=== PATIENT | male | born 1955 | race Caucasian/White ===

== ENCOUNTER → 2019-08-14 10:10 | Outpatient (BNVA) | payer MEDICARE, SELFPAY | PROVIDERS: Family Provider Family Medicine; PCP Family Medicine; Visit Provider Internal Medicine Cardiovascular Disease | DX: R06.02 Shortness of breath (principal) | CPT/HCPCS: 80048; 85025 ==

== ENCOUNTER 2019-09-27 09:51 | Outpatient (CLI) | payer MEDICARE, SELFPAY ==
--- NOTE | 2019-09-27 09:55 | CT_ITS ---
WS: [id number] LDCT LUNG CANCER SCREENING TECHNIQUE: Noncontrast CT of the chest with coronal and sagittal reformatted images. CLINICAL INFORMATION: HX OF TOBACCO USE COMPARISON: None. DLP: 56.61 mGy.cm DIvol: 1.[address] scans at [facility] use at least one of these dose optimization techniques: automat ed exposure control; mA and/or kV adjustment per patient size (includes targeted exams where dose is matched to clinical indication); or iterative reconstruction. FINDINGS: Moderate chronic emphysematous changes. Paraseptal emphysematous change. Noncalcified pulmonary nodul e in the left upper lobe measuring 4.3 mm. Additional noncalcified subpleural nodule in the right upp er lobe measuring 3.5 mm Subsegmental atelectasis in the lung bases. Fibrosis right middle lobe. Subsegmental atelectasis/fibr osis along the right minor fissure. Normal caliber thoracic aorta. Vascular calcification including coronary. No mediastinal or hilar lym phadenopathy. Adrenal glands are normal. Cholecystectomy clips. No axillary lymphadenopathy. Dorsal epidural cathet er. CT/CT lung screening G0297 IMPRESSION: LUNG-RADS: 3-Probably Benign FOLLOW UP: 6 Month LDCT
== END 2019-09-27 09:52 | disposition home or self-care (01) ==
PROVIDERS: Visit Provider Internal Medicine Critical Care Medicine
DX: F17.210 Nicotine dependence, cigarettes, uncomplicated (principal); J98.11 Atelectasis; J84.10 Pulmonary fibrosis, unspecified
CPT/HCPCS: G0297

== ENCOUNTER 2019-10-31 12:31 | Outpatient (CLI) | payer MEDICARE, SELFPAY ==
--- NOTE | 2019-10-31 13:13 | PFTS_ITS ---
Date of Study:10/31/19 Date of Dictation: MECHANICS: Forced vital capacity (FVC) is normal. Forced expiratory volume in one second (FEV1) is normal. FEV1/FVC is normal. FLOW VOLUME LOOP: There is no initial peak flow on the flow volume loop LUNG VOLUMES: Total lung capacity (TLC) is normal. Residual volume (RV) is normal. DIFFUSING CAPACITY FOR CARBON MONOXIDE: Moderately reduced. INTERPRETATION: The pulmonary function tests are normal. There is no hyperinflation or air trapping. Gas exchange (DLCO) is moderately reduced. MTDD
== END 2019-10-31 12:32 | disposition home or self-care (01) ==
LOC: RT 12:34
PROVIDERS: Visit Provider Internal Medicine Critical Care Medicine
DX: J44.9 Chronic obstructive pulmonary disease, unspecified (principal)
CPT/HCPCS: 94010; 94726; 94729

== ENCOUNTER → 2019-11-04 14:33 | Outpatient (BNVA) | payer MEDICARE, SELFPAY | PROVIDERS: PCP Family Medicine; Visit Provider Internal Medicine Cardiovascular Disease | DX: I50.9 Heart failure, unspecified (principal); I25.10 Atherosclerotic heart disease of native coronary artery without angina pectoris | CPT/HCPCS: 80048; 83880; 85025 ==

== ENCOUNTER 2019-11-26 06:38 | Outpatient (CLI) | payer MEDICARE, SELFPAY ==
[2019-11-26 07:01] VITALS: BMI 34.8
--- NOTE | 2019-11-26 07:03 | ECG_ITS ---
[facility] Test Date: 2019-11-26 Pat Name: Rikki Barron Department: Room: Gender: Male Patient Flow Coordinator: : 1955 Requested By: Fadumo Dupree Order Number: [id number] Lety MD: Fadumo Dupree M.D. Interpretive Statements NAME OF STUDY: LEXISCAN SESTAMIBI STRESS TEST INDICATION: Shortness of Breath NOTE: Please note that this is the electrocardiogram portion of the Lexiscan/Sestamibi stress test. The perfusion scan will be documented separately. DATA: Baseline heart rate was 98 beats per minute. Baseline blood pressure was 142/74 millimeters of mercury. Target heart rate was 158. Maximum heart rate achieved was 116. which was 73 % of the predicted target heart rate. Maximum blood pressure was 142/82 millimeters of mercury. The reason for ending the test was completion of the protocol. The patient did not experience any symptoms. ELECTROCARDIOGRAM: BASELINE: Sinus rhythm. Normal axis. Nonspecific inferolateral ST-T changes at the baseline. No arrhythmia noted. EXERCISE: After Lexiscan injection, no ST-T changes suggestive of ischemic noted. Multiple PVCs noted. CONCLUSION: Please note due to baseline abnormality of the EKG specificity and sensitivity of the EKG portion of LexiScan MIBI stress test will be low 1. EKG not suggestive of ischemia 2. Lexiscan injection unremarkable. 3. Perfusion scan will be documented separately. Electronically Signed On 11-26-2019 19:32:01 CDT by Fadumo Dupree M.D. [id number]
--- NOTE | 2019-11-26 07:08 | NMCV_ITS ---
NM kari perf SPECT r/s* [id number] Rikki Barron Age: 63 Gender: M : 1955 Exam Date: 11/26/2019 08:13 Ordering Phys: Fadumo Dupree MD ([email or web address]) Technologist: BLAYNE Razo Exam Location: [facility] Indications: SOB STRESS TEST Please see separate stress test report in [facility] for full findings IMAGE PROTOCOL Rest/Stress 1 Lexiscan Day Radiopharmaceutical Dose (mCi) Administration Site Administered by Rest: Tc-99m 10.8 IV BLAYNE Razo Sestamibi Stress:Tc-99m 32.9 IV BLAYNE Bray Sestamibi Rest: 26-Nov-2019 60 Discovery 630 Stress: 26-Nov-2019 45 Discovery 630 0.4mg Lexiscan. Supine position only as patient was unable to lay prone. SPECT RESULTS Technical Quality: Good Raw Data Analysis: breathing motion Image Corrections: No attenuation or motion correction applied Summed Stress Score: 24 Summed Rest Score: 14 Summed Difference Score: 10 PERFUSION FINDINGS Medium-sized area of fixed perfusion defect noted in basal to mid anterior and apical wall on both rest and stress images suggestive of old myocardial infarction versus artifact. Large area of fixed perfusion defect noted in basal to distal inferior and inferolateral wall with small area of mild reversibility suggestive of old myocardial infarction versus scarring surrounded by mild vasu-infarct ischemia. Please note that patient was not able to perform the prone images therefore cannot rule out artifact. FUNCTIONAL RESULTS (calculated via Gated SPECT) Stress Image LV EF (%): 29 Stress EDV (mL):207 TID: 0.96 Stress ESV (mL):147 Rest Image LV EF (%): 29 FUNCTIONAL FINDINGS: Global wall hypokinesis with regional inferior and apical wall akinesis. Severely depressed LV function IMPRESSIONS Medium-sized area of fixed perfusion defect noted in basal to mid anterior and apical wall on both rest and stress images suggestive of old myocardial infarction versus artifact. Large area of fixed perfusion defect noted in basal to distal inferior and inferolateral wall with small area of mild reversibility suggestive of old myocardial infarction versus scarring surrounded by mild vasu-infarct ischemia. Please note that patient was not able to perform the prone images therefore cannot rule out artifact. EKG segment will be documented separately. Fadumo Dupree MD (Electronically Signed) Final Date: 26 November 2019 17:04 S
--- NOTE | 2019-11-26 08:51 | SUR.PREOP ---
Patient reports no pain or discomfort prior to the start of the procedure.
[2019-11-26] MEDS: regadenoson 0.4 Mg/5 ml Syringe IVP (08:56)
[2019-11-26 09:11] VITALS: BP 121/78; PULSE 105
== END 2019-11-26 06:39 | disposition home or self-care (01) ==
LOC: RAD 06:39 → CDL 06:53
PROVIDERS: PCP Family Medicine; Visit Provider Internal Medicine Cardiovascular Disease
DX: R06.02 Shortness of breath (principal); I25.10 Atherosclerotic heart disease of native coronary artery without angina pectoris; I50.20 Unspecified systolic (congestive) heart failure; I25.9 Chronic ischemic heart disease, unspecified
CPT/HCPCS: 78452; 93017; A9500; J2785

== ENCOUNTER 2019-11-28 10:43 | Outpatient (CLI) | payer MEDICARE, SELFPAY ==
--- NOTE | 2019-11-28 13:30 | USCV_ITS ---
Rikki Barron Age: 63 Gender: M : 1955 Exam Date: 11/28/2019 11:19 Ordering Phys: Kiara Rodriguez MD Technologist: eJrome Deleon Exam Location: [facility] Indication: CP BP: 120 / 76 HR: 47 Rhythm: Sinus Technical Quality: Fair MEASUREMENTS (Male / Female) Normal Values 2D ECHO LV Diastolic Diameter PLAX 6.7 cm 4.2 - 5.9 / 3.9 - 5.3 cm LV Systolic Diameter PLAX 5.6 cm IVS Diastolic Thickness 1.3 cm 0.6 - 1.0 / 0.6 - 0.9 cm IVS Systolic Thickness 1.3 cm LVPW Diastolic Thickness 1.3 cm 0.6 - 1.0 / 0.6 - 0.9 cm LVPW Systolic Thickness 1.3 cm LVOT Diameter 2.1 cm LV Ejection Fraction 2D Teich 33.2 % LV Ejection Fraction MOD 2C 55.5 % LV Ejection Fraction 2C AL 56.5 % LA Diameter 5.4 cm LA Width 4.4 cm LA Height 6.8 cm RA Width 4.4 cm RA Height 5.8 cm M-MODE LV Diastolic Diameter MM 6.5 cm 4.2 - 5.9 / 3.9 - 5.3 cm LV Systolic Diameter MM 5.1 cm LV Ejection Fraction MM Teich 42.4 % IVS Diastolic Thickness MM 1.4 cm 0.6 - 1.0 / 0.6 - 0.9 cm IVS Systolic Thickness MM 1.5 cm LVPW Diastolic Thickness MM 1.1 cm 0.6 - 1.0 / 0.6 - 0.9 cm LVPW Systolic Thickness MM 1.9 cm RV Diastolic Diameter MM 1.6 cm Aortic Annulus Diameter 3.8 cm LA Ao Ratio MM 1.4 MV E Point Septal Separation 2.3 cm DOPPLER AV Peak Velocity 150.0 cm/s LVOT Peak Velocity 84.0 cm/s AV Area Cont Eq vti 2.3 cm squared AV Area Cont Eq pk 1.9 cm squared MV Area PHT 5.0 cm squared Mitral E to A Ratio 1.2 MV E' Velocity 183.0 cm/s TR Peak Velocity 393.0 cm/s TR Peak Gradient 61.6 mmHg TV Peak E Velocity 130.0 cm/s Right Atrial Pressure 3.0 mmHg Pulmonary Artery Systolic Pressu 64.8 mmHg PV Peak Velocity 110.0 cm/s FINDINGS Left Ventricle Moderately increased left ventricular cavity size. Moderately decreased left ventricular systolic function. Left ventricular ejection fraction is estimated at 42 %. Global left ventricular hypokinesis. Grade II/IV diastolic dysfunction, moderately elevated filling pressures. Right Ventricle Normal right ventricular size. Severe pulmonary hypertension, RVSP 64.8 mmHg. Right Atrium The right atrium is normal in size. Left Atrium Moderately increased left atrial size. Mitral Valve Moderately thickened mitral valve. No mitral valve stenosis. Severe mitral valve regurgitation. Aortic Valve Moderate aortic valve calcification. No aortic valve stenosis. Mild aortic valve regurgitation. Tricuspid Valve Severe tricuspid valve regurgitation. Pulmonic Valve Structurally normal pulmonic valve without significant stenosis. There is no pulmonic regurgitation. Pericardium Normal pericardium without effusion. Aorta Normal ascending aorta dimension. CONCLUSIONS 1-Moderately increased left ventricular cavity size. Moderately decreased left ventricular systolic function. Left ventricular ejection fraction is estimated at 42 %. Global left ventricular hypokinesis. Grade II/IV diastolic dysfunction, moderately elevated filling pressures. 2-Moderately increased left atrial size. 3-Normal right ventricular size. Severe pulmonary hypertension, RVSP 64.8 mmHg. 4-Moderately thickened mitral valve. No mitral valve stenosis. Severe mitral valve regurgitation. 5-Moderate aortic valve calcification. No aortic valve stenosis. Mild aortic valve regurgitation. 6-Severe tricuspid valve regurgitation. 7-When compared to the prior echocardiogram dated 12/12/2017 there appeared to be worsening of mitral regurgitation from moderate to severe, tricuspid valve regurgitation from mild to severe while there is a worsening of pulmonary hypertension from mild to severe now. Fadumo Dupree MD (Electronically Signed) Final Date: 28 November 2019 19:08 S
== END 2019-11-28 10:44 | disposition home or self-care (01) ==
LOC: RAD 10:46
PROVIDERS: PCP Family Medicine; Visit Provider Internal Medicine Critical Care Medicine
DX: R06.02 Shortness of breath (principal); R07.9 Chest pain, unspecified; I05.9 Rheumatic mitral valve disease, unspecified; I35.1 Nonrheumatic aortic (valve) insufficiency; I07.1 Rheumatic tricuspid insufficiency
CPT/HCPCS: 93306

== ENCOUNTER 2020-03-23 10:43 | Outpatient (CLI) | payer MEDICARE, SELFPAY ==
--- NOTE | 2020-03-23 10:51 | CT_ITS ---
WS: [id number] LDCT LUNG CANCER SCREENING TECHNIQUE: Noncontrast CT of the chest with coronal and sagittal reformatted images. CLINICAL INFORMATION: NICOTINE DEPENDENCE, CIGARETTES COMPARISON: September 27, 2019 DLP: 66.45 mGy.cm DIvol: 1.[address] scans at [facility] use at least one of these dose optimization techniques: automat ed exposure control; mA and/or kV adjustment per patient size (includes targeted exams where dose is matched to clinical indication); or iterative reconstruction. FINDINGS: Moderate chronic emphysematous changes with periseptal emphysema. Noncalcified pulmonary nodule in th e left upper lobe measuring 4.3 mm is unchanged. Additional noncalcified subpleural nodule in the rig ht upper lobe measuring 3.5 mm is stable. A few prominent mediastinal and hilar lymph nodes unchanged and likely reactive. Subsegmental atelectasis in the lung bases. Vascular calcification including coronary. Cholecystectom y clips. Dorsal epidural catheter. CT/CT lung screening [id number] IMPRESSION: LUNG-RADS: 2-Benign Appearance or Behavior FOLLOW UP: 12 Month: Continue annual screening with LDCT
== END 2020-03-23 10:44 | disposition home or self-care (01) ==
LOC: CT 10:45
PROVIDERS: PCP Family Medicine; Visit Provider Internal Medicine Critical Care Medicine
DX: Z12.2 Encounter for screening for malignant neoplasm of respiratory organs (principal); F17.210 Nicotine dependence, cigarettes, uncomplicated
CPT/HCPCS: G0297

== ENCOUNTER 2020-06-08 04:38 | Inpatient (IN) | payer MEDICARE, MEDICAID, SELFPAY ==
[2020-06-08] VITALS (42 sets, daily range): BP systolic 68–122; BP diastolic 45–96; PULSE 103–169; RESP 12–28; TEMP 36.1–36.8; O2SAT 83–97; BMI 25.7
--- NOTE | 2020-06-08 04:47 | XR_ITS ---
WS: [id number] PORTABLE CHEST HISTORY: sob COMPARISON: None available. Prior median sternotomy and CABG. Marked hyperinflation from emphysema. New areas of consolidation at the lung bases. Consistent with a combination of pneumonia, atelectasis and pleural fluid. There is diffuse haziness and interstitial edema and mild congestion. No pneumothorax. Cardiac size: Heart is markedly enlarged. Mediastinum/Aorta: Mild atherosclerosis aorta. No osseous abnormality seen. XR/XR chest 1V portable [id number] IMPRESSION: 1. Interval development of moderate CHF with small bilateral pleural effusions . Atelectasis and pneumonia at the lung base is not excluded. 2. Markedly enlarged heart. 3. Status post CABG. 4. Emphysema.
--- NOTE | 2020-06-08 04:47 | ECG_ITS ---
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 Measurements Intervals [place] Rate: 169 P: LA: QRS: 10 QRSD: 96 T: 0 QT: 260 QTc: 436 Interpretive Statements ATRIAL FIBRILLATION WITH RAPID VENTRICULAR RESPONSE NONSPECIFIC ST & T-WAVE ABNORMALITY CRITICAL TEST RESULT Compared to ECG 01/24/2018 05:50:08 Sinus rhythm no longer present T-wave abnormality still present Electronically Signed On 06-08-2020 18:25:50 ASSISTANT STATISTICIAN by Shelly Perez M.D. [id number]
[2020-06-08] MEDS: sodium chloride 0.9% 500 ML 999 ML IV (04:59)
[2020-06-08 05:01] LABS: Basophils % 0.2 %; Hematocrit 30.5 % (42.0-52.0); Hemoglobin 9.6 g/dL (11.7-16.6); Lymphocytes # 1.4 10^3/uL (0.8-4.8); Mean Corpuscular HGB Conc 31.5 g/dL (30.0-36.0); Mean Corpuscular Hemoglobin 28.2 pg (28.0-34.0); Mean Corpuscular Volume 89.4 fL (80-94); Monocytes # 0.8 10^3/uL (0.2-0.9); Monocytes % 7.3 %; Neutrophils # 8.26 10^3/uL (1.8-7.7); Neutrophils % 78.5 %; Nucleated Red Blood Cells % 0 %; Platelet Count 362 10^3/cmm (130-400); Red Blood Count 3.41 10^6/uL (4.1-5.3); Red Cell Distribution Width 15.3 % (12.1-15.1); White Blood Count 10.5 10^3/uL (4.0-10.0)
[2020-06-08 05:16] LABS: INR 1.11 (0.8-1.2)
[2020-06-08 05:20] LABS: Lactic Sepsis W/Reflex 1.6 mmol/L (0.5-2.2)
[2020-06-08 05:31] LABS: Troponin(5th) Baseline 152 ng/L (0-15)
[2020-06-08 05:36] LABS: ABG PCO2 36.9 mmHg (35-45); ABG PH Result 7.45 (7.35-7.45); Arterial Blood Gas Hematocrit 28.2 % (42-52); Base Excess ABG 1.3 mmol/L (-2.0-2.0); Blood Gas Operator Identificat HARKR; Blood Gas Sample Site Brachial, right; Blood Gas Sample Type Arterial; Carboxyhemoglobin 1.3 %THgb (0.4-20.1); HCO3 ABG 25.3 mmol/L (22-26); Methemoglobin 0.8 % (0.4-1.5); Oxygen Device NC; PO2 ABG 74.5 mmHg (80.0-100.0); Total Hemoglobin 9.2 g/dL (14-18)
[2020-06-08 05:36] LABS: Alanine Aminotransferase 32 U/L (0-41); Albumin Level 3.9 g/dL (3.5-5.2); Alkaline Phosphatase 201 IU/L (40-130); Anion Gap 15.8 (5-19); Aspartate Amino Transferase 21 U/L (0-40); Blood Urea Nitrogen 33 mg/dL (8-23); Calcium 9.2 mg/dL (8.5-10.5); Carbon Dioxide 27 mmol/L (22-29); Chloride 100 mmol/L (98-107); Globulin 2.3 g/dL (1.3-4.6); Glomerular Filtration Rate 40.9 mL/min (90-130); Glucose 129 mg/dL (65-115); NT Pro B Type Natriuretic Pept 22417 pg/mL (0-125); Osmolality Calculated 295 mOsm/kg (285-295); Potassium 4.8 mmol/L (3.5-5.1); Sodium 138 mmol/L (136-145); Total Bilirubin 0.3 mg/dL (0.15-1.2); Total Protein 6.2 g/dL (6.6-8.7)
[2020-06-08] MEDS: metoprolol tartrate 1 mg/1 mL SDV 5 mL 2.5 MG IV (05:47)
--- NOTE | 2020-06-08 06:35 | ED_ITS ---
HPI - SOB/Dyspnea General: Chief Complaint: Shortness of Breath/Dyspnea Stated Complaint: SOB Time Seen by Provider: 06/08/20 04:47 History of Present Illness: HPI Narrative: 64-year-old male with a history of CABG procedure in [place] with tricuspid valve replacement (porcine) on 05/29. He presents with significant shortness of breath this morning. States he was seen at an outside facility a couple of days ago, and told to double up on his water pills . He was discharged. He presents this morning with rapid heart rate, and significant shortness of breath. He notes that he vomited some bloody vomitus at home as well. He is not anticoagulated. He does take Plavix. Associated symptoms: Reports nausea, orthopnea, palpitations and vomiting; Deny abdominal pain, chest pain, dizziness or fever(s) Review of Systems Const: Denies: fever(s) or chills Eyes: Denies: change in vision ENMT: Denies: odynophagia, epistaxis or sinus pain Card: Reports: palpitations, irregular heart rhythm, edema, swelling of feet/ankles, dyspnea on exertion and orthopnea; Denies: chest pain Resp: Reports: dyspnea and non-productive cough; Denies: productive cough or wheezing GI: Reports: nausea and vomiting; Denies: abdominal pain, rectal pain, hematochezia or melena : Denies: difficulty urinating or hematuria Musc: Denies: neck pain or back pain Skin/Breast: Denies: rash or erythema Neuro: Denies: headache(s), dizziness or vertigo Psych: Denies: anxiety [facility] ED PFSH: Medical History (Updated 06/08/20 @ 09:07 by Malachi Feliz DO) ASHD (arteriosclerotic heart disease) Atrial fibrillation CAD (coronary artery disease) Worsening of shortness of breath along with chest pressure in the patient with history of extensive coronary disease and bypass surgery Chronic headaches Emphysema of lung Irritation around percutaneous endoscopic gastrostomy (PEG) tube site LV dysfunction Mitral valve regurgitation Pulmonary hypertension Shortness of breath Systolic heart failure Tricuspid valve regurgitation Surgical History Previous back surgery S/P CABG (coronary artery bypass graft) S/P insertion of intrathecal pump S/P wrist surgery Family History Other Heart disease Stroke Social History Smoking and tobacco status: current every day smoker cigarettes Packs smoked per day: 1.5 Years cigarettes smoked: 40 Quit status (tobacco): has tried quititng Alcohol intake: never Lives independently: Yes Household members: spouse Marital status: Current occupational status: disabled History of recent travel: No Current gender identity: Male Physical Exam Const: GENERAL APPEARANCE: in distress, ill appearing and frail appearing ORIENTATION/CONSCIOUSNESS: Yes oriented to person, Yes oriented to place and Yes oriented to time HENMT: COMMON NORMALS: normocephalic, external ears normal and Normal external nose present HEAD & SCALP: normocephalic FACE & SINUS: normal facial exam NOSE: Normal external nose present and No nasal discharge present EXTERNAL EAR: Yes external ears normal Eye: COMMON NORMALS: Equal, round and reactive pupils present, EOMs intact bilaterally and conjunctivae normal EYELID: eyelids normal CONJUNCTIVA: Yes conjunctivae normal PUPIL: Yes Equal, round and reactive pupils present Neck/C-Spine: GENERAL: No tracheal deviation Chest: CHEST: Yes tenderness Resp: COMMON NORMALS: negative for clear to auscultation bilaterally EFFORT & INSPECTION: Yes tachypneic, Yes respiratory distress, No retractions, Yes uses accessory muscles and No tracheal deviation AUSCULTATION: not clear to auscultation bilaterally, no rhonchi, no wheezes and diminished lung sounds Cardio: RATE: tachycardic RHYTHM: abnormal rhythm irregularly irregular HEART SOUNDS: no murmurs PERIPHERAL PULSES: radial pulses present GI: INSPECTION: No abdominal distension AUSCULTATION: No Hyperactive bowel sounds present and No Hypoactive bowel sounds present PALPATION: No Guarding due to palpation present (GI) and No Rigid due to palpation PERCUSSION: no dullness to percussion and no tympanic to percussion : COMMON NORMALS: Yes no CVA tenderness BLADDER/KIDNEY EXAM: Yes no CVA tenderness Back/Pelvis: COMMON NORMALS: no CVA tenderness Neuro: SENSORIUM/ORIENTATION: Yes oriented to person, Yes oriented to place and Yes oriented to time Psych: COMMON NORMALS: mental status grossly normal Skin: COMMON NORMALS: no rashes or lesions noted GENERAL SKIN EXAM: no rashes or lesions noted Course Consultations: Consultation #1: Isabell Time: 07:38 Vital Signs: Vital signs: Vital Signs Temperature 98.3 F 06/08/20 04:38 Pulse Rate 132 H 06/08/20 08:48 Respiratory Rate 16 06/08/20 08:48 Blood Pressure 119/96 06/08/20 08:48 Pulse Oximetry 96 06/08/20 08:48 MDM - SOB/Dyspnea MDM Narrative: Medical decision making narrative: 64-year-old male status post CABG and valve replacement 11 days ago at an outside facility. He presents with palpitations, shortness of breath, and one episode of bloody emesis at home. His heart rate was in the 160s on arrival. He was given a 500 cc fluid bolus along with a bolus of Cardizem and a drip. Even at 20 mg Cardizem bolus and at 15 on the drip his heart rate remained high. He was given 2.5 mg of IV metoprolol, which did not seem to affect his heart rate much. His blood pressure has been soft. Having failed these 2 interventions, we moved onto am iodarone. He is about to finish his amiodarone bolus. He is still tachycardic and in atrial fibrillation. His blood pressure is somewhat improved, 112/79 currently. The next step would be to cardiovert him electronically. I have ordered a stat echo to check for pericardial effusion as a cause of atrial fibrillation with rapid rate. Cardiology has been consulted. She read the echocardiogram, which does not show a pericardial effusion, only severe systolic heart failure with an EF of 15 to 20%. She suggests a dose of Lasix, which has been given. Currently, diltiazem is running at 10, and initial infusion of amiodarone are both running. Heart rate is still in the 140s to 150s the patient is not experiencing any chest discomfort, but is still significantly short of breath. She is coming to see the patient in the ER. Cardioversion may be necessary in this patient. He will be admitted to the ICU. Lab Data: Labs: Lab Results 06/08/20 06/08/20 06/08/20 Range/Units 04:48 04:48 04:48 WBC 10.5 H (4.0-10.0) 10^3/ uL RBC 3.41 L (4.1-5.3) 10^6/u L Hgb 9.6 L (11.7-16.6) g/dL Hct 30.5 L (42.0-52.0) % MCV 89.4 (80-94) fL MCH 28.2 (28.0-34.0) pg MCHC 31.5 (30.0-36.0) g/dL RDW 15.3 H (12.1-15.1) % Plt Count 362 (130-400) 10^3/c mm MPV 11.0 H (7.4-10.4) fL Neut % (Auto) 78.5 % Lymph % (Auto) 13.0 % Mercer % (Auto) 7.3 % Eos % (Auto) 0.0 % Baso % (Auto) 0.2 % Neut # (Auto) 8.26 H (1.8-7.7) 10^3/u L Lymph # (Auto) 1.4 (0.8-4.8) 10^3/u L Mercer # (Auto) 0.8 (0.2-0.9) 10^3/u L Eos # (Auto) 0.0 (0.0-0.8) 10^3/u L Baso # (Auto) 0.0 (0.0-0.1) 10^3/u L Nucleated RBC % (a uto) 0 % Nucleated RBCs # 0.0 /100WBC PT 14.70 (12.1-14.9) SECO NDS INR 1.11 (0.8-1.2) Specimen Type Sample Site ABG pH (7.35-7.45) ABG pCO2 (35-45) mmHg ABG pO2 (80.0-100.0) mmH g ABG HCO3 (22-26) mmol/L ABG Base Excess (-2.0-2.0) mmol/ L Alexx Test Hematocrit (42-52) % Hgb O2 Saturation (95-100) % Carboxyhemoglobin (0.4-20.1) %THgb Methemoglobin (0.4-1.5) % Total Hemoglobin (14-18) g/dL O2 Delivery Device O2 Liters/Min % Chart Changer ID Sodium 138 (136-145) mmol/L Potassium 4.8 (3.5-5.1) mmol/L Chloride 100 (98-107) mmol/L Carbon Dioxide 27 (22-29) mmol/L Anion Gap 15.8 (5-19) BUN 33 H (8-23) mg/dL Creatinine 1.7 H (0.7-1.2) mg/dL GFR Calculation 40.9 L (90-130) mL/min Glucose 129 H (65-115) mg/dL Calculated Osmolal ity 295 (285-295) mOsm/k g Lactic Acid (0.5-2.2) mmol/L Calcium 9.2 (8.5-10.5) mg/dL Total Bilirubin 0.3 (0.15-1.2) mg/dL AST 21 (0-40) U/L ALT 32 (0-41) U/L Alkaline Phosphata se 201 H (40-130) IU/L Troponin T Baselin e (0-15) ng/L Troponin T 120 Min [place] (0-15) ng/L Delta Troponin T (0-10) ABS# NT-Pro-B Natriuret Pep 95201 H (0-125) pg/mL Total Protein 6.2 L (6.6-8.7) g/dL Albumin 3.9 (3.5-5.2) g/dL Globulin 2.3 (1.3-4.6) g/dL Blood Type Rho(D) Type Antibody Screen 06/08/20 06/08/20 06/08/20 Range/Units 04:48 04:48 04:48 WBC (4.0-10.0) 10^3/ uL RBC (4.1-5.3) 10^6/u L Hgb (11.7-16.6) g/dL Hct (42.0-52.0) % MCV (80-94) fL MCH (28.0-34.0) pg MCHC (30.0-36.0) g/dL RDW (12.1-15.1) % Plt Count (130-400) 10^3/c mm MPV (7.4-10.4) fL Neut % (Auto) % Lymph % (Auto) % Mercer % (Auto) % Eos % (Auto) % Baso % (Auto) % Neut # (Auto) (1.8-7.7) 10^3/u L Lymph # (Auto) (0.8-4.8) 10^3/u L Mercer # (Auto) (0.2-0.9) 10^3/u L Eos # (Auto) (0.0-0.8) 10^3/u L Baso # (Auto) (0.0-0.1) 10^3/u L Nucleated RBC % (a uto) % Nucleated RBCs # /100WBC PT (12.1-14.9) SECO NDS INR (0.8-1.2) Specimen Type Sample Site ABG pH (7.35-7.45) ABG pCO2 (35-45) mmHg ABG pO2 (80.0-100.0) mmH g ABG HCO3 (22-26) mmol/L ABG Base Excess (-2.0-2.0) mmol/ L Alexx Test Hematocrit (42-52) % Hgb O2 Saturation (95-100) % Carboxyhemoglobin (0.4-20.1) %THgb Methemoglobin (0.4-1.5) % Total Hemoglobin (14-18) g/dL O2 Delivery Device O2 Liters/Min % Chart Changer ID Sodium (136-145) mmol/L Potassium (3.5-5.1) mmol/L Chloride (98-107) mmol/L Carbon Dioxide (22-29) mmol/L Anion Gap (5-19) BUN (8-23) mg/dL Creatinine (0.7-1.2) mg/dL GFR Calculation (90-130) mL/min Glucose (65-115) mg/dL Calculated Osmolal ity (285-295) mOsm/k g Lactic Acid 1.6 (0.5-2.2) mmol/L Calcium (8.5-10.5) mg/dL Total Bilirubin (0.15-1.2) mg/dL AST (0-40) U/L ALT (0-41) U/L Alkaline Phosphata se (40-130) IU/L Troponin T Baselin e 152 H* (0-15) ng/L Troponin T 120 Min [place] (0-15) ng/L Delta Troponin T (0-10) ABS# NT-Pro-B Natriuret Pep (0-125) pg/mL Total Protein (6.6-8.7) g/dL Albumin (3.5-5.2) g/dL Globulin (1.3-4.6) g/dL Blood Type O Positive Rho(D) Type Positive Antibody Screen Negative 06/08/20 06/08/20 Range/Units 05:25 06:53 WBC (4.0-10.0) 10^3/ uL RBC (4.1-5.3) 10^6/u L Hgb (11.7-16.6) g/dL Hct (42.0-52.0) % MCV (80-94) fL MCH (28.0-34.0) pg MCHC (30.0-36.0) g/dL RDW (12.1-15.1) % Plt Count (130-400) 10^3/c mm MPV (7.4-10.4) fL Neut % (Auto) % Lymph % (Auto) % Mercer % (Auto) % Eos % (Auto) % Baso % (Auto) % Neut # (Auto) (1.8-7.7) 10^3/u L Lymph # (Auto) (0.8-4.8) 10^3/u L Mercer # (Auto) (0.2-0.9) 10^3/u L Eos # (Auto) (0.0-0.8) 10^3/u L Baso # (Auto) (0.0-0.1) 10^3/u L Nucleated RBC % (a uto) % Nucleated RBCs # /100WBC PT (12.1-14.9) SECO NDS INR (0.8-1.2) Specimen Type Arterial Sample Site Brachial, right ABG pH 7.45 (7.35-7.45) ABG pCO2 36.9 (35-45) mmHg ABG pO2 74.5 L (80.0-100.0) mmH g ABG HCO3 25.3 (22-26) mmol/L ABG Base Excess 1.3 (-2.0-2.0) mmol/ L Alexx Test N/a Hematocrit 28.2 L (42-52) % Hgb O2 Saturation 93.0 L (95-100) % Carboxyhemoglobin 1.3 (0.4-20.1) %THgb Methemoglobin 0.8 (0.4-1.5) % Total Hemoglobin 9.2 L (14-18) g/dL O2 Delivery Device Nc O2 Liters/Min 5.0 % Chart Changer ID [place]ark[place] Sodium (136-145) mmol/L Potassium (3.5-5.1) mmol/L Chloride (98-107) mmol/L Carbon Dioxide (22-29) mmol/L Anion Gap (5-19) BUN (8-23) mg/dL Creatinine (0.7-1.2) mg/dL GFR Calculation (90-130) mL/min Glucose (65-115) mg/dL Calculated Osmolal ity (285-295) mOsm/k g Lactic Acid (0.5-2.2) mmol/L Calcium (8.5-10.5) mg/dL Total Bilirubin (0.15-1.2) mg/dL AST (0-40) U/L ALT (0-41) U/L Alkaline Phosphata se (40-130) IU/L Troponin T Baselin e (0-15) ng/L Troponin T 120 Min [place] 137.6 H (0-15) ng/L Delta Troponin T -14.4 L (0-10) ABS# NT-Pro-B Natriuret Pep (0-125) pg/mL Total Protein (6.6-8.7) g/dL Albumin (3.5-5.2) g/dL Globulin (1.3-4.6) g/dL Blood Type Rho(D) Type Antibody Screen Discharge Plan Discharge Patient Disposition: Admitted As Inpatient Clinical Impression: Atrial fibrillation Qualifiers: Atrial fibrillation type: persistent (not longstanding) Qualified Code(s): I48.19 - Other persistent atrial fibrillation Systolic heart failure Qualifiers: Heart failure chronicity: acute on chronic Qualified Code(s): I50.23 - Acute on chronic systolic (congestive) heart failure Respiratory failure Qualifiers: Chronicity: acute Respiratory failure complication: hypoxia Qualified Code(s): J96.01 - Acute respiratory failure with hypoxia Condition: Stable Coding Level of Care Code ED Bag Patcher for [facility] Fwd Exam Comprehensive
--- NOTE | 2020-06-08 06:47 | ECG_ITS ---
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 Measurements Intervals [place] Rate: 132 P: ND: QRS: 7 QRSD: 107 T: 23 QT: 288 QTc: 427 Interpretive Statements ATRIAL FIBRILLATION WITH RAPID VENTRICULAR RESPONSE WITH ABERRANT CONDUCTION OR VENTRICULAR PREMATURE COMPLEXES NONSPECIFIC ST & T-WAVE ABNORMALITY ABNORMAL RHYTHM ECG Compared to ECG 06/08/2020 04:44:40 Ventricular premature complex(es) now present Aberrant conduction of supraventricular beat(s) now present T-wave abnormality still present Electronically Signed On 06-08-2020 18:26:29 TELEVISION SCHEDULE COORDINATOR by Shelly Perez M.D. [id number]
--- NOTE | 2020-06-08 06:51 | USCV_ITS ---
Rikki Barron Age: 64 Gender: M : 1955 Exam Date: 06/08/2020 06:52 Ordering Phys: Malachi Feliz DO Technologist: Lucina Doyle [place] [facility] [place]ication: POST CABG AND VALVE REPLACEMENT AND VALVE REPAIR 05-29-2020 BP: 97 / 59 HR: 148 Rhythm: Sinus Technical Quality: Adequate MEASUREMENTS (Male / Female) Normal Values 2D ECHO LV Diastolic Diameter PLAX 5.6 cm 4.2 - 5.9 / 3.9 - 5.3 cm LV Systolic Diameter PLAX 4.7 cm LV Chamber Size 3.7 cm IVS Diastolic Thickness 1.4 cm 0.6 - 1.0 / 0.6 - 0.9 cm IVS Systolic Thickness 1.9 cm LVPW Diastolic Thickness 1.5 cm 0.6 - 1.0 / 0.6 - 0.9 cm LVPW Systolic Thickness 1.7 cm RV Chamber Size 2.4 cm LVOT Diameter 2.1 cm LV Ejection Fraction 2D Teich 31.2 % LV Ejection Fraction MOD 2C 65.1 % LV Ejection Fraction 2C AL 67.9 % LA Diameter 4.2 cm LA Width 4.2 cm LA Height 4.1 cm RA Width 3.8 cm RA Height 4.8 cm Aorta at Sinotubular Diameter 3.1 cm M-MODE LV Diastolic Diameter MM 6.1 cm 4.2 - 5.9 / 3.9 - 5.3 cm LV Systolic Diameter MM 5.2 cm LV Ejection Fraction MM Teich 32.0 % IVS Diastolic Thickness MM 1.6 cm 0.6 - 1.0 / 0.6 - 0.9 cm IVS Systolic Thickness MM 1.6 cm LVPW Diastolic Thickness MM 1.1 cm 0.6 - 1.0 / 0.6 - 0.9 cm LVPW Systolic Thickness MM 1.5 cm RV Diastolic Diameter MM 1.8 cm Aortic Annulus Diameter 3.7 cm LA Ao Ratio MM 1.1 MV E Point Septal Separation 2.8 cm DOPPLER TR Peak Velocity 266.8 cm/s TR Peak Gradient 28.5 mmHg TR Mean Velocity 187.7 cm/s TR Mean Gradient 15.8 mmHg TR Velocity Time Integral 63.3 cm FINDINGS Left Ventricle Dilated left ventricle. Severely decreased left ventricular systolic function. Left ventricular ejection fraction is estimated at 15-20 %. Severe global hypokinesis. Right Ventricle Probably normal right ventricular size with decreased right ventricular systolic function. Right ventricular systolic pressure 39 mmHg. Right Atrium Right atrium not well visualized. Probably mildly increased right atrial size. Left Atrium Left atrium not well visualized. Moderately increased left atrial size. Mitral Valve Normal well seated prosthetic mitral valve. Trace mitral valve regurgitation. Aortic Valve Structurally normal trileaflet aortic valve. No aortic valve stenosis. Mild aortic valve regurgitation. Tricuspid Valve Status post tricuspid valve repair. Moderate tricuspid valve regurgitation. Pulmonic Valve Pulmonic valve not well visualized. Pericardium No pericardial effusion. Aorta Aorta not well visualized. IVC not well visualized. CONCLUSIONS 1. This is a technically very difficult study. Interpretation is limited by rapid ventricular response. 2. Dilated left ventricle. Severely decreased left ventricular systolic function. Left ventricular ejection fraction is estimated at 15-20 %. Severe global hypokinesis. 3. Probably normal right ventricular size with decreased right ventricular systolic function. 4. Moderate tricuspid valve regurgitation. Shelly Perez MD (Electronically Signed) Final Date: 08 June 2020 08:22 S
[2020-06-08 07:26] LABS: Troponin 5 2HR 137.6 ng/L (0-15); Troponin 5 2HR Delta -14.4 ABS# (0-10)
[2020-06-08] MEDS: FUROsemide 10 mg/mL SDV 4mL 40 MG IVP ×2 (08:40→15:14)
--- NOTE | 2020-06-08 10:40 | PM.HP ---
Providers/Chief Complaint Primary Care Provider: Thee Sage Chief Complaint: SOB History of Present Illness Rikki Barron is a 64 year old male that presents to the emergency department with complaints of vomiting. He reports he vomited up a small amount of bright red blood. He reports no chest pain. He has been short of breath with slight exertion. He reports rhythm problems with his heart that were going on prior to his recent heart surgery. He believes he had significant issues following this as well. After getting discharged home around the or he reports 1 day past and then he started having some loose stools, mixed with bright red blood. He reports 5-6 of these occurred, prior to the one episode of vomiting he had yesterday. He denies any fever. He reports no exposure to Covid or personal history of Covid. His most recent surgery was a CABG procedure in [place]. I am not for sure of the valves involved. He may have had a tricuspid valve replacement, porcine and a mitral valve repair. Old records are pending. Review of Systems General: Reports: 10 or more systems reviewed and unremarkable except in HPI and below Const: Denies: fever(s) Eyes: Denies: change in vision ENMT: Denies: throat pain Card: Denies: chest pain Resp: Reports: dyspnea GI: Reports: nausea, hematemesis and hematochezia : Denies: flank pain Musc: Denies: neck pain Skin/Breast: Denies: rash Neuro: Denies: headache(s) Psych: Denies: anxiety Endo: Denies: polyuria Nixon/Lymph: Denies: easy bruising All/Imm: Denies: urticaria Medications/Allergies Home Medications Medication Instructions Recorded Confirmed Last Taken Type clopidogrel 75 mg tablet 75 mg PO DAILY@08/01/19 06/08/20 06/07/20 History aspirin 81 mg tablet,delayed 162 mg PO DAILY@ tab 11/04/19 06/08/20 06/07/20 History release potassium chloride 10 mEq 10 meq PO DAILY PRN tab 11/04/19 06/08/20 Unknown History tablet,extended release simvastatin 40 mg tablet 40 mg PO DAILY@18 11/04/19 06/08/20 06/07/20 History isosorbide mononitrate 30 mg 30 mg PO BID #180 tab 02/06/20 06/08/20 Unknown Rx tablet,extended release 24 hr metoprolol succinate 25 mg 50 mg PO DAILY@09 tab 02/06/20 06/08/20 06/07/20 History tablet,extended release 24 hr Lasix 40 mg PO DAILY PRN 06/08/20 06/08/20 Unknown History albuterol sulfate 2 puff INHALATION Q4H PRN 06/08/20 06/08/20 Unknown History alprazolam 0.25 mg PO BID PRN 06/08/20 06/08/20 Unknown History bisacodyl 5 mg PO DAILY PRN 06/08/20 06/08/20 Unknown History docusate sodium 100 mg PO DAILY@08 06/08/20 06/08/20 06/07/20 History mexiletine 150 mg PO Q8H 06/08/20 06/08/20 06/07/20 History temazepam 30 mg PO BEDTIME 06/08/20 06/08/20 06/07/20 History tramadol 100 mg PO Q6H PRN 06/08/20 06/08/20 Unknown History Allergies Allergy/AdvReac Type Severity Reaction Status Date / Time codeine Allergy Severe ADR-Agitate Verified 03/24/20 09:47 d morphine Allergy Severe ALGY-Difficulty Verified 03/24/20 09:47 Breathing acetaminophen [From Tylenol] AdvReac Severe ADR-Agitate Verified 03/24/20 09:47 d PFSH Acute PFSH: Medical History (Updated 06/08/20 @ 10:51 by Dakotah Salas MD) ASHD (arteriosclerotic heart disease) Atrial fibrillation CAD (coronary artery disease) Worsening of shortness of breath along with chest pressure in the patient with history of extensive coronary disease and bypass surgery Chronic headaches Chronic kidney disease Chronic pain Emphysema of lung Irritation around percutaneous endoscopic gastrostomy (PEG) tube site LV dysfunction Mitral valve regurgitation Pulmonary hypertension Pulmonary nodule Shortness of breath Systolic heart failure Tricuspid valve regurgitation Surgical History Previous back surgery S/P CABG (coronary artery bypass graft) S/P insertion of intrathecal pump S/P wrist surgery Family History Other Heart disease Stroke Social History Smoking and tobacco status: current every day smoker cigarettes Packs smoked per day: 1.5 Years cigarettes smoked: 40 Quit status (tobacco): has tried quititng Alcohol intake: never Lives independently: Yes Household members: spouse Marital status: Current occupational status: disabled History of recent travel: No Current gender identity: Male Supplemental [facility], [facility] Information: Reports he just stopped smoking May 29 and is hoping this will stick. Vitals/I&O/Wt Last Vital Signs Temp 98.3 F 06/08/20 04:38 Pulse 138 H 06/08/20 10:21 Resp 16 06/08/20 10:21 BP 99/76 06/08/20 10:21 Pulse Ox 96 06/08/20 10:21 06/07/20 06/08/20 06/08/20 22:59 06:59 14:59 Intake Total 25.25 / 25.25 0 / 0 Balance 25.25 / 25.25 0 / 0 Weight last 48 hrs Weight 83.915 kg Physical Exam Narrative: EXAM NARRATIVE: General exam is a white male, with mild tachypnea with a saturation of 95% on 5 L HEENT: Pupils equally round. Oropharynx clear. Neck is supple no lymphadenopathy or thyromegaly Cardiovascular tachycardic, irregular, irregular. Rate is fast enough I do not hear a murmur. Chest. Sternotomy scar is noted and no evidence of infection Lungs few crackles at the bases Abdomen is soft, positive bowel sounds. No obvious organomegaly. Left flank/back has pain pump. Pouch from previous pain pump is noted on his abdomen on the left. was deferred Extremities trace to 1+ edema bilaterally Skin no rash Neuro no focal deficits. Data : 06/08/20 04:48 06/08/20 04:48 Other data: EKG demonstrates atrial fibrillation with rapid ventricular rate around 130, normal axis, several PVCs. Nonspecific ST-T wave flattening with some T wave inversion in the precordial leads. Chest x-ray shows likely bilateral pleural effusions, cardiomegaly, sternotomy wires from my evaluation. I do not see a focal infiltrate. A&P Assessment and plan (1) GI bleed: Protonix 40 mg IV every 12 hours N.p.o. except ice chips, meds. If hemoglobin remains stable consider clear liquid diet. Hold Plavix and aspirin today and reassess in the morning. Reassess need for these when old records are reviewed Status: Acute (2) Respiratory failure: Oxygen as needed Albuterol/ipratropium as needed Status: Acute Qualifiers: Chronicity: acute Respiratory failure complication: hypoxia Qualified Code(s): J96.01 - Acute respiratory failure with hypoxia (3) Atrial fibrillation: Cardiology consultation Currently amiodarone drip, Cardizem drip Continue metoprolol as tolerated for blood pressure I suspect he recently had rate control issues as he was on mexiletine coming in to hospital this visit and was not in March during an office visit then. Status: Acute Qualifiers: Atrial fibrillation type: persistent (not longstanding) Qualified Code(s): I48.19 - Other persistent atrial fibrillation (4) Systolic heart failure: He received a dose of Lasix in the emergency department, 40 mg IV. Reassess, with cardiology consultation, potential further doses depending on clinical status this afternoon Status: Acute Qualifiers: Heart failure chronicity: acute on chronic Qualified Code(s): I50.23 - Acute on chronic systolic (congestive) heart failure (5) Elevated troponin: Type II elevation. No evidence of acute myocardial infarction Status: Acute (6) Hypotension: Monitor blood pressures closely. This may be driven by his low EF, and medications being used for atrial fibrillation with rapid ventricular rate Status: Acute Additional A&P Information Recent history of valvular replacement and valvular repair. Obtain old records History of chronic bronchitis Coronary artery disease with history of coronary artery bypass grafting Hypertension. Holding medication currently secondary to soft blood pressure. Hyperlipidemia. Continue statin History of tobacco use, recently quit. Encouraged is abstinence. Chronic kidney disease. Avoid renal toxic medications. Multiple other medical problems as outlined in past medical history Full code SCDs for DVT prophylaxis, anticoagulation contraindicated secondary to GI bleeding. Attestations Medical Necessity Statement*: Will need greater than 2 midnight stay for evaluation and treatment of atrial fibrillation with rapid ventricular rate Time Spent in Patient Care: Greater than 35 minutes Critical Care Time: Critical Care Time (min): 58 Other Attestations: The high probability of a clinically significant, sudden or life threatening deterioration of the patient's [cardiac, GI] system(s) required my full and direct attention, intervention and personal management. The critical care time is as shown. This time is in addition to time spent performing any reported procedures but includes the following: [x] Data and vital sign review and interpretation [x] Patient assessment, examination and intervention [x] Documentation [x] Medication orders and management Coding Level of Care Code Acute Infection Prevention Practitioner for Chg Fwd Diagnoses GI bleed K92.2 Respiratory failure J96.01 Chronicity: acute Respiratory failure complication: hypoxia Atrial fibrillation I48.19 Atrial fibrillation type: persistent (not longstanding) Systolic heart failure I50.23 Heart failure chronicity: acute on chronic Elevated troponin R77.8 Hypotension I95.9
[2020-06-08 10:46] LABS: Magnesium 2.1 mg/dL (1.7-2.3)
--- NOTE | 2020-06-08 10:47 | ECG_ITS ---
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 Measurements Intervals [place] Rate: 148 P: AR: QRS: -4 QRSD: 106 T: 0 QT: 286 QTc: 450 Interpretive Statements ATRIAL FIBRILLATION WITH RAPID VENTRICULAR RESPONSE NONSPECIFIC ST & T-WAVE ABNORMALITY ABNORMAL RHYTHM ECG Compared to ECG 06/08/2020 06:42:36 Ventricular premature complex(es) no longer present Aberrant conduction of supraventricular beat(s) no longer present T-wave abnormality still present Electronically Signed On 06-08-2020 18:26:49 GOVERNMENT AFFAIRS FELLOW by Shelly Perez M.D. [id number]
[2020-06-08 10:58] LABS: Urine Appearance Clear (CLEAR); Urine Color Yellow (Yellow); pH Urine 5 (5-7)
[2020-06-08 10:59] LABS: Bilirubin Urine 1+ (Negative); Blood Urine Neg (Negative); Glucose Urine UA Norm (Normal); Ketones Urine 1+ (Negative); Nitrate Urine Negative (Negative); Protein Urine Neg (Negative); Urobilinogen Urine 1 mg/dL (Negative)
[2020-06-08 11:03] LABS: Add Urine Culture? No; Bacteria Urine 1+ /hpf; Fine Granular Casts Urine 0-4 /lpf; Squamous Epithelial Cell Urine 0-4 /hpf (0-5)
[2020-06-08 11:08] LABS: Hematocrit 29.8 % (42.0-52.0)
[2020-06-08] MEDS: pantoprazole 40 mg SDV IVP ×2 (11:24→22:09)
--- NOTE | 2020-06-08 11:31 | PM.CONSULT ---
Providers/Reason For Consult Consulting Physican/Specialty*: Dr. Perez, cardiology Reason for Consult*: Recent Bio MVR, TV repair and redo CABG x 3, A fib with RVR and CHF exacerbation Attending Physician: Dakotah Salas MD Primary Care Provider: Thee Sage History of Present Illness History of Present Illness Rikki Barron is a 64 year old male with past medical history of coronary artery disease s/p CABG x 1 3 years back (single graft WALLACE to LAD, circumflex and RCA were diffusely diseased and not bypassed at [place]) with recent abnormal stress test, moderate to severe tricuspid valve regurgitation and severe mitral valve regurgitation. He also has history of PVC, chronic systolic congestive heart failure (LVEF=36%) and history of tobacco abuse. He underwent redo sternotomy and CABG x3 with great saphenous vein graft to diagonal, obtuse marginal and posterior descending. He also had mitral valve replacement with 33 mm epic porcine valve and tricuspid valve repair with 34 mm tri-Ad Lopez annuloplasty ring on 05/29/20. He was admitted at [facility] from May 29 to June 04, 2020 for the same. He was discharged home on mexiletine 150 mg 3 times daily, Lasix 40 mg daily for a week and then as needed along with potassium 10 M EQ. Plavix was held. He was discharged home on 3 L of oxygen. His creatinine on 20 June was 1.28 which had improved from 1.5. Hemoglobin of 8.6 hematocrit 26.5 and platelets 163. I do not have any documentation of A. fib post Sx on discharge symmary. # OSVALDO on 29 May intraoperatively that showed moderate to severely decreased global left ventricular systolic function with severely increased left ventricular cavity size. Severe mitral valve regurgitation dilated mitral valve annulus with restricted leaflet mobility during systole. Severe tricuspid valve regurgitation severely dilated left atrium and mildly dilated right atrium. Mild to moderate aortic valve regurgitation moderately enlarged right ventricle with tricuspid annular dilation. Post-bypass bioprosthetic valve seen in mitral position well-seated. Small paravalvular leak. Annuloplasty ring present in tricuspid position at least moderate residual TR no other changes compared to prebypass exam. #EKG from and 30 May showed sinus tachycardia with frequent PVCs low QRS voltage and nonspecific ST and T wave abnormality.EKG today with A. fib with RVR and non specific ST-T wave abnormality. He has been experiencing SOB since discharge and has been sleeping in his recliner. He also states that his HR was fast. 2 days back he was at ER and apparently dose of lasix was increased and he was sent home. I do not have any records from that. He also mentions that yesterday he had 4-5 episodes of diarrhea that was reddish in color that looked like blood. He also had one episode of bloody vomiting. His /significant other made him come to the ER. He does admit to leg swelling and orthopnea. He does not check his BP/HR and but states that since increasing his lasix UO did not increase. Review of Systems General: Reports: 10 or more systems reviewed and unremarkable except in HPI and below Const: Denies: fever(s) Eyes: Denies: change in vision ENMT: Denies: throat pain Card: Denies: chest pain Resp: Reports: dyspnea GI: Reports: nausea, hematemesis and hematochezia : Denies: flank pain Musc: Denies: neck pain Skin/Breast: Denies: rash Neuro: Denies: headache(s) Psych: Denies: anxiety Endo: Denies: polyuria Nixon/Lymph: Denies: easy bruising All/Imm: Denies: urticaria Meds/Allergies Home Medications and Allergies Home Medications Medication Instructions Recorded Confirmed Last Taken Type clopidogrel 75 mg tablet 75 mg PO DAILY@08/01/19 06/08/20 06/07/20 History aspirin 81 mg tablet,delayed 162 mg PO DAILY@ tab 11/04/19 06/08/20 06/07/20 History release potassium chloride 10 mEq 10 meq PO DAILY PRN tab 11/04/19 06/08/20 Unknown History tablet,extended release simvastatin 40 mg tablet 40 mg PO DAILY@11/04/19 06/08/20 06/07/20 History isosorbide mononitrate 30 mg 30 mg PO BID #180 tab 02/06/20 06/08/20 Unknown Rx tablet,extended release 24 hr metoprolol succinate 25 mg 50 mg PO BID@ tab 02/06/20 06/08/20 06/07/20 History tablet,extended release 24 hr Lasix 40 mg PO DAILY PRN 06/08/20 06/08/20 Unknown History albuterol sulfate 2 puff INHALATION Q4H PRN 06/08/20 06/08/20 Unknown History alprazolam 0.25 mg PO BID PRN 06/08/20 06/08/20 Unknown History bisacodyl 5 mg PO DAILY PRN 06/08/20 06/08/20 Unknown History docusate sodium 100 mg PO DAILY@08 06/08/20 06/08/20 06/07/20 History mexiletine 150 mg PO Q8H 06/08/20 06/08/20 06/07/20 History temazepam 30 mg PO BEDTIME 06/08/20 06/08/20 06/07/20 History tramadol 100 mg PO Q6H PRN 06/08/20 06/08/20 Unknown History Allergies Allergy/AdvReac Type Severity Reaction Status Date / Time codeine Allergy Severe ADR-Agitate Verified 03/24/20 09:47 d morphine Allergy Severe ALGY-Difficulty Verified 03/24/20 09:47 Breathing acetaminophen [From Tylenol] AdvReac Severe ADR-Agitate Verified 03/24/20 09:47 d Current Medications Current Medications Generic Name Dose Route Start Last Admin Trade Name Freq PRN Reason Stop Dose Admin Diltiazem HCl 125 mg/ Sodium 125 mls @ 0 mls/hr 06/08/20 05:00 06/08/20 08:09 Chloride IV 10 mg/hr .Q0M ROSA MARIA 10 mls/hr Titration Protocol Per Protocol Amiodarone HCl 900 mg/ 518 mls @ 0 mls/hr 06/08/20 06:15 06/08/20 06:56 Dextrose/ IV Miscellaneous IV 1 mg/min Supplies .Q0M ROSA MARIA 34.5 mls/hr Administration Protocol Per Protocol Pantoprazole Sodium 40 mg 06/08/20 11:15 06/08/20 11:24 Pantoprazole 40 Mg Sdv IVP 40 mg Q12H ROSA MARIA Administration PFSH Acute PFSH: Medical History ASHD (arteriosclerotic heart disease) Atrial fibrillation CAD (coronary artery disease) Worsening of shortness of breath along with chest pressure in the patient with history of extensive coronary disease and bypass surgery Chronic headaches Chronic kidney disease Chronic pain Emphysema of lung Irritation around percutaneous endoscopic gastrostomy (PEG) tube site LV dysfunction Mitral valve regurgitation Pulmonary hypertension Pulmonary nodule Shortness of breath Systolic heart failure Tricuspid valve regurgitation Surgical History Previous back surgery S/P CABG (coronary artery bypass graft) S/P insertion of intrathecal pump S/P wrist surgery Family History Other Heart disease Stroke Social History Smoking and tobacco status: current every day smoker cigarettes Packs smoked per day: 1.5 Years cigarettes smoked: 40 Quit status (tobacco): has tried quititng Alcohol intake: never Lives independently: Yes Household members: spouse Marital status: Current occupational status: disabled History of recent travel: No Current gender identity: Male Vitals/I&O/Wt Last Vital Signs Temp 98.3 F 06/08/20 04:38 Pulse 148 H 06/08/20 11:00 Resp 16 06/08/20 11:00 BP 104/70 06/08/20 11:00 Pulse Ox 95 06/08/20 11:00 06/07/20 06/08/20 06/08/20 22:59 06:59 14:59 Intake Total 25.25 / 25.25 0 / 0 Balance 25.25 / 25.25 0 / 0 Weight last 48 hrs Weight 185 lb Physical Exam Narrative: EXAM NARRATIVE: Gen: averagely built man lying in bed, currently saturating >92% on oxygen 4 L via NC Neck: No JVD appreciated RS: CTAB/L CVS: S1, S2 of variable intensity and tachycardia+, systolic murmur in LLSB+ [employer]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 Data Other Data: Attestation for Other Data: I personally reviewed and interpreted the following: Other data: # TTE CONCLUSIONS 1. This is a technically very difficult study. Interpretation is limited by rapid ventricular response. 2. Dilated left ventricle. Severely decreased left ventricular systolic function. Left ventricular ejection fraction is estimated at 15-20 %. Severe global hypokinesis. 3. Probably normal right ventricular size with decreased right ventricular systolic function. 4. Moderate tricuspid valve regurgitation. CXR IMPRESSION: 1. Interval development of moderate CHF with small bilateral pleural effusions. Atelectasis and pneumonia at the lung base is not excluded. 2. Markedly enlarged heart. 3. Status post CABG. 4. Emphysema. A&P Assessment and plan (1) Shortness of breath: Acute on chronic respiratory failure -on oxygen since his recent sx Status: Acute (2) Systolic heart failure: ACC/AHA Stage C Acute on chronic systolic CHF -LVEF 15-20% on echo today; about the same as OSVALDO intraop. -IVC upper normal with decreased respiratory variation, UO about 350 ml since morning. -I will repeat another dose of lasix 40 mg IVx 1 Status: Acute Qualifiers: Heart failure chronicity: acute on chronic Qualified Code(s): I50.23 - Acute on chronic systolic (congestive) heart failure (3) Atrial fibrillation: Remains in RVR inspite of amiodarone, cardizem drip. -stop Mexilitene -Digoxin 500 mcg x 1 given. -metoprolol 5 mg IV PRN. -start on anticoagulation once feasible. Status: Acute Qualifiers: Atrial fibrillation type: persistent (not longstanding) Qualified Code(s): I48.19 - Other persistent atrial fibrillation (4) GI bleed: concern for GI bleed, however no drop in Hb. -f/u on CBC. No active bleed. Status: Acute Qualifiers: GI bleed type/associated pathology: unspecified gastrointestinal hemorrhage type Qualified Code(s): K92.2 - Gastrointestinal hemorrhage, unspecified (5) Elevated troponin: In setting of decompensated CHF . -No delta change. Status: Acute Additional A&P Information s/p Bio MVR : well seated, no significant regurgitation noted s/p tricuspid valve ring annuloplasty: residual moderate MR h/o PVC's Anemia CKD Emphysema h/o lung nodule Smoker Thank you for allowing me to participate in patient's care. Please feel free to call with questions or concerns Consult Attestations Medical Necessity Statement: needs hospital stay for decompensated CHF and A. fib with RVR Time Spent in Patient Care: Greater than 35 minutes (>than 50% of time spent in counselling and/or direct pt care on unit). Critical Care Time: Critical Care Time (min): 30 Coding Level of Care Code Acute Coffee Break Attendant for Chica Stout Diagnoses Shortness of breath R06.02 Systolic heart failure I50.23 Heart failure chronicity: acute on chronic Atrial fibrillation I48.19 Atrial fibrillation type: persistent (not longstanding) GI bleed K92.2 GI bleed type/associated pathology: unspecified gastrointestinal hemorrhage type Elevated troponin R77.8
[2020-06-08 11:47] LABS: Troponin 5 6HR 140.7 ng/L (0-15); Troponin 5 6HR Delta -11.3 ng/L (0-12)
--- NOTE | 2020-06-08 11:52 | PC.NURSE ---
incision that is approx 10 days old is noted to the anterior chest wall. scabbing noted. no s/s of dehiscence or infection at this time. no drainage noted.
[2020-06-08] MEDS: ondansetron 2 mg/ML SDV 2 mL 4 MG IVP (13:05)
[2020-06-08] MEDS: digoxin 250 mcg/ml INJ 2 mL 500 MCG IVP (13:37)
[2020-06-08] MEDS: atorvastatin 40 mg Tablet 20 MG PO (19:28)
[2020-06-08] MEDS: digoxin 250 mcg/ml INJ 2 mL IVP (19:28)
[2020-06-08 19:45] LABS: Hematocrit 29.5 % (42.0-52.0); Hemoglobin 9.1 g/dL (11.7-16.6)
[2020-06-08] MEDS: metoprolol tartrate 25 mg Tablet PO (21:18)
[2020-06-09] VITALS (50 sets, daily range): BP systolic 78–119; BP diastolic 43–87; PULSE 89–154; RESP 15–30; TEMP 36.6–36.8; O2SAT 71–100
[2020-06-09] MEDS: ALPRAZolam 0.25 mg Tablet PO (01:23)
[2020-06-09 04:25] LABS: Basophils % 0.2 %; Hematocrit 28.1 % (42.0-52.0); Hemoglobin 8.9 g/dL (11.7-16.6); Lymphocytes # 1.2 10^3/uL (0.8-4.8); Lymphocytes % 13.9 %; Mean Corpuscular HGB Conc 31.7 g/dL (30.0-36.0); Mean Corpuscular Hemoglobin 28.8 pg (28.0-34.0); Mean Corpuscular Volume 90.9 fL (80-94); Monocytes # 0.5 10^3/uL (0.2-0.9); Monocytes % 5.9 %; Neutrophils # 6.68 10^3/uL (1.8-7.7); Neutrophils % 78.7 %; Nucleated Red Blood Cells % 0 %; Platelet Count 275 10^3/cmm (130-400); Red Blood Count 3.09 10^6/uL (4.1-5.3); Red Cell Distribution Width 15.3 % (12.1-15.1); White Blood Count 8.5 10^3/uL (4.0-10.0)
[2020-06-09 04:54] LABS: Alanine Aminotransferase 35 U/L (0-41); Albumin Level 3.3 g/dL (3.5-5.2); Alkaline Phosphatase 156 IU/L (40-130); Anion Gap 13.8 (5-19); Aspartate Amino Transferase 24 U/L (0-40); Blood Urea Nitrogen 34 mg/dL (8-23); Calcium 8.8 mg/dL (8.5-10.5); Carbon Dioxide 28 mmol/L (22-29); Chloride 99 mmol/L (98-107); Globulin 2.7 g/dL (1.3-4.6); Glomerular Filtration Rate 40.9 mL/min (90-130); Glucose 101 mg/dL (65-115); Osmolality Calculated 292 mOsm/kg (285-295); Potassium 3.8 mmol/L (3.5-5.1); Sodium 137 mmol/L (136-145); Total Bilirubin 0.4 mg/dL (0.15-1.2)
--- NOTE | 2020-06-09 07:20 | USCV_ITS ---
Rikki Barron Age: 64 Gender: M : 1955 Exam Date: 06/09/2020 08:37 Ordering Phys: Dakotah Salas MD Technologist: Kaylee Aguiar [place] [facility] [place]ication: [place]DE[place] HISTORY: Lower extremity edema. PROCEDURES: Venous duplex imaging was performed in bilateral lower extremities. The following venous structures were evaluated: common femoral vein, profunda vein, proximal portion of the greater saphenous vein, superficial femoral vein, and the popliteal vein. In addition, the posterior tibial veins were evaluated. In addition, the posterior tibial and peroneal trunk were evaluated. FINDINGS: Normal 2-D Doppler and augmentation and compressibility throughout the lower extremity venous structures. Additional imaging through the proximal calf veins also reveals no thrombus. Limited evaluation of the greater saphenous vein is patent with no thrombus. Simple fluid collection right groin measures 4.0 x 2.4 cm. No vascularity. May be from a recent procedure. CONCLUSIONS No DVT bilateral lower extremities. Dr. Janet Bansal DO (Electronically Signed) Final Date: 09 June 2020 12:42 S
--- NOTE | 2020-06-09 07:20 | XRR_ITS ---
PROCEDURE INFORMATION: Exam: XR Chest, 1 View Exam date and time: 06/09/2020 7:27 AM Age: 64 years old Clinical indication: Dyspnea; Prior surgery; Surgery type: Cardiac TECHNIQUE: Imaging protocol: XR of the chest Views: 1 view. COMPARISON: CR XR chest 1V portable [id number] 06/08/2020 4:46 AM FINDINGS: Lungs: Interstitial vascular congestion. Consolidation right lower lung and likely retrocardiac opacity left lower lung. Pleural space: Persistent bilateral pleural effusions probably loculated laterally in the left chest. Heart/Mediastinum: Prominent cardiac enlargement. Bones/joints: Postoperative sternotomy. Soft tissues: Surgical suture material along the medial upper left chest and mediastinum. Thickening of the left lung apex margin. XR/XR chest 1V portable [id number] IMPRESSION: 1. Cardiomegaly. 2. Bilateral pleural effusions with likely partial loculation laterally in the lower left chest. 3. Interstitial edema of congestive heart failure or volume overload. 4. Opacities of the lower lungs which may reflect pneumonic infiltrate or atelectasis. Mild progression of findings compared to previous.
--- NOTE | 2020-06-09 08:16 | P.PN_ITS ---
Subjective Subjective: Interval history: Rikki reports he has been a little dizzy at times, and certainly short of breath. Denies any chest discomfort. Medications: Reviewed: Yes Vitals/I&O/Wt Last Vital Signs Temp 98.3 F 06/09/20 00:30 Pulse 153 H 06/09/20 07:48 Resp 18 06/09/20 07:48 BP 106/63 06/09/20 07:00 Pulse Ox 92 06/09/20 07:48 06/08/20 06/09/20 06/09/20 22:59 06:59 14:59 Intake Total 250.475 / 800.550 267.2 / 1067.750 Output Total 950 / 950 600 / 1550 Balance -699.525 / -149.450 -332.8 / -482.250 Weight last 48 hrs Weight 111.1 kg Weight 83.915 kg Physical Exam Narrative: EXAM NARRATIVE: General exam is a white male no distress. Telemetry indicates significantly accelerated rate persists Cardiovascular tachycardic, irregular, irregular. No obvious murmur but rate is accelerated. Lungs demonstrate no wheezing but crackles are still heard at the bases Abdomen is soft, positive bowel sounds. No obvious organomegaly. Left flank/back has pain pump. Pouch from previous pain pump is noted on his abdomen on the left. Extremities trace to 1+ edema bilaterally. No tenderness to palpation Data : 06/09/20 03:43 06/09/20 03:43 A&P Assessment and plan (1) GI bleed: Change Protonix to 40 mg twice daily Cardiac diet initiated yesterday Holding aspirin currently. If no evidence of recurrent bleeding consider reinitiating this tomorrow, 81 mg daily Hemoglobin for the most part has remained stable from admission and no evidence of ongoing bleeding has been established. Status: Acute Qualifiers: GI bleed type/associated pathology: unspecified gastrointestinal hemorrhage type Qualified Code(s): K92.2 - Gastrointestinal hemorrhage, unspecified (2) Respiratory failure: Oxygen as needed Albuterol/ipratropium as needed Status: Acute Qualifiers: Chronicity: acute Respiratory failure complication: hypoxia Qualified Code(s): J96.01 - Acute respiratory failure with hypoxia (3) Atrial fibrillation: Appreciate cardiology consultation Currently amiodarone drip, Cardizem drip Continue metoprolol as tolerated for blood pressure Cardiology ordered several doses of digoxin yesterday I suspect he recently had rate control issues as he was on mexiletine coming in to hospital this visit and was not in March during an office visit then. Cannot rule out need for cardioversion at this point. Status: Acute Qualifiers: Atrial fibrillation type: persistent (not longstanding) Qualified Code(s): I48.19 - Other persistent atrial fibrillation (4) Systolic heart failure: He has diuresed only 500 cc since admission. Repeat 40 mg of Lasix IV currently. Repeat chest x-ray. This was just done. Per my read he may have at least a moderate pleural effusion right. Therefore we will go ahead and proceed with a noncontrast CT chest to delineate amount of effusion and whether this is worth thoracentesis. If it appears significant pleural effusion is present consider chest ultrasound or CT chest Appreciate cardiology recommendations Status: Acute Qualifiers: Heart failure chronicity: acute on chronic Qualified Code(s): I50.23 - Acute on chronic systolic (congestive) heart failure (5) Elevated troponin: Type II elevation. No evidence of acute myocardial infarction Status: Acute (6) Hypotension: Monitor blood pressures closely. This may be driven by his low EF, and medications being used for atrial fibrillation with rapid ventricular rate Status: Acute Additional A&P Information Lower extremity edema. Check venous duplex recent history of valvular replacement and valvular repair. Old records have been reviewed History of chronic bronchitis Coronary artery disease with history of coronary artery bypass grafting Hypertension. Holding medication currently secondary to soft blood pressure. Hyperlipidemia. Continue statin History of tobacco use, recently quit. Encouraged is abstinence. Chronic kidney disease. Avoid renal toxic medications. Multiple other medical problems as outlined in past medical history Full code SCDs for DVT prophylaxis, anticoagulation contraindicated secondary to GI bleeding. Attestations Medical Necessity Statement*: Needs continued hospitalization secondary to atrial fibrillation with rapid ventricular rate, difficult to control associated with hypotension and concurrent GI bleeding. Critical Care Time: Critical Care Time (min): 36 Other Attestations: The high probability of a clinically significant, sudden or life threatening deterioration of the patient's cardiac with his hypotension, and atrial fibrillation with rapid ventricular rate difficult to control as well as concurrent GI bleed in this patient with very low EF system(s) required my full and direct attention, intervention and personal management. The critical care time is as shown. This time is in addition to time spent performing any reported procedures but includes the following: [x] Data and vital sign review and interpretation [x] Patient assessment, examination and intervention [x] Documentation [x] Medication orders and management Coding Level of Care Code Acute Engine Repair Supervisor for Chg Fwd Diagnoses GI bleed K92.2 GI bleed type/associated pathology: unspecified gastrointestinal hemorrha ge type Respiratory failure J96.01 Chronicity: acute Respiratory failure complication: hypoxia Atrial fibrillation I48.19 Atrial fibrillation type: persistent (not longstanding) Systolic heart failure I50.23 Heart failure chronicity: acute on chronic Elevated troponin R77.8 Hypotension I95.9
--- NOTE | 2020-06-09 08:26 | CT_ITS ---
WS: [id number] CT CHEST WITHOUT INTRAVENOUS CONTRAST HISTORY: pleural effusion, dyspnea TECHNIQUE: Contiguous 5 mm axial imaging performed on the thorax. Coronal and sagittal reformats are submitted. All CT scans at [facility] use at least one of these dose optimization techniq ues: automated exposure control; mA and/or kV adjustment per patient size (includes targeted exams wh ere dose is matched to clinical indication); or iterative reconstruction. CONTRAST: None DLP: 1008.61 mGy.cm COMPARISON: 03/23/2020. Lungs and central airway: Mild pulmonary edema. There are scattered opacifications and areas of atele ctasis. Patient has known emphysema. Pleura: Bilateral pleural effusions. Small bilateral pleural effusions, RIGHT greater than LEFT. Ther e is also fluid extending along the fissures which is partially loculated. No pneumothorax. Heart and pericardium: Markedly enlarged heart with small pericardial effusion versus pericardial thi ckening. Mediastinum and rk: Mediastinal and hilar lymph nodes are small but numerous. Probably reactive. Vessels: Moderate atherosclerosis aorta. Prior CABG. Small amount of fluid retrosternal to the LEFT m easures 3.7 cm. Chest wall and lower neck: Prior median sternotomy. Upper abdomen: Prior cholecystectomy. Mildly heterogeneous appearance to the liver cannot be further evaluated without IV contrast. Osseous structures: No destructive process. CT/CT chest wo con [id number] IMPRESSION: 1. Moderate bilateral pleural effusions are new since 03/23/2020. RIGHT greater than LEFT. Fluid extends into the fissures bilaterally. 2. Marked cardiomegaly. 3. Prior median sternotomy. 4. Retrosternal fluid measures 3.7 cm. May be loculated pleural effusion. Yenny ot exclude abscess without IV contrast. 5. Mild diffuse pulmonary edema.
[2020-06-09] MEDS: FUROsemide 10 mg/mL SDV 4mL 40 MG IVP ×2 (08:35→18:00)
[2020-06-09] MEDS: pantoprazole DR 40 mg Tablet PO ×2 (08:35→18:00)
[2020-06-09] MEDS: digoxin 250 mcg/ml INJ 2 mL IVP (08:35)
[2020-06-09] MEDS: metoprolol tartrate 25 mg Tablet PO ×2 (08:35→22:19)
--- NOTE | 2020-06-09 08:52 | PC.CHAP ---
Pastoral Care Encounter/Spiritual Assessment Type of Contact [] Declined computer forensic examiner visit [] Patient/Family/Request visit [] Outpatient visit [] Follow-up visit [] Physician referral [] Code/Alert [] Routine visit [] Staff referral [] Actively dying [] Patient sleeping [] Family support [] [] Out of room [] Palliative care [] [] Receiving care in room [] Pre-surgical visit [] Trauma [] Long length of stay [x] ICU visit [] Other: Relational/Emotional Strength [] Patient feels connected with others/family/visitors/staff [] Distress [] Loneliness/isolation [] Abandonment Spirituality of Patient [] Person of Dolly [] Attends Denominational of their Dolly [] Believes in Prayer [] Reads Bible or Yazidism materials [] There are Spiritual issues to be addressed Revenue Accountant Interventions [x] Prayer [] Active listening [] Non-anxious presence [] Spiritual/emotional support [] Crisis/trauma care [] Spiritual counseling [] Bereavement support [] Provided bereavement packet [] Provided Bible/devotional materials [] Provided toy/stuffed animal, coloring book to patient or family member [] Provided Communion [] Anointing/[place] [] Salvation [x] Completed spiritual assessment [] Other: Impact on Illness or Injury [] Angry [] Fearful [] Anxious [] Often cries [] Exhaustion [] Unable to work [] Unable to attend advent [] Unable to walk/stand [] Unable to read [] Unable to drive [] Unable to eat/drink [] Unable to sleep [] Unable to be with family [] Patient intubated [] Other: Summary Time spent with patient
--- NOTE | 2020-06-09 09:56 | PC.NURSE ---
Patient was taken to CT by two nurses and brought back to unit at 0950. Patient tolerated well.
[2020-06-09 12:36] LABS: Procalcitonin 0.13 ng/mL (0-0.5)
--- NOTE | 2020-06-09 13:47 | PC.RESP ---
SMOKING CESSATION AND PULMONARY REHAB INFORMATION SENT TO PATIENT.
--- NOTE | 2020-06-09 17:27 | PM.PN ---
Subjective Subjective: Interval history: Laying comfortable continues to be in A. fib with somewhat rate controlled Medications: Reviewed: Yes Vitals/I&O/Wt Last Vital Signs Temp 97.8 F 06/09/20 14:00 Pulse 96 06/09/20 16:00 Resp 21 H 06/09/20 16:00 BP 107/60 06/09/20 16:00 Pulse Ox 93 06/09/20 16:00 06/09/20 06/09/20 06/09/20 06:59 14:59 22:59 Intake Total 267.2 / 1067.750 480 / 480 Output Total 600 / 1550 550 / 550 200 / 750 Balance -332.8 / -482.250 -70 / -70 -200 / -270 Weight last 48 hrs Weight 244 lb 14.937 oz Weight 185 lb Physical Exam Narrative: EXAM NARRATIVE: GENERAL: Patient is alert, awake and oriented x3. NECK: No jugular vein distension. HEENT: No cyanosis. No icterus. No pallor. HEART: Regular S1 and S2. No murmur, rub or gallop. LUNGS: Decreased breath sounds bilaterally. ABDOMEN: Soft, nontender and nondistended. Positive bowel sounds. No guarding, rebound or tenderness. CENTRAL NERVOUS SYSTEM: Grossly nonfocal. EXTREMITIES: Lower extremities without edema bilaterally. Pulses Data : 06/09/20 03:43 06/09/20 03:43 A&P Assessment and plan (1) Shortness of breath: Combination of heart failure effusion and A. fib with RVR. Continue diuresis may consider pleural tap Status: Acute (2) Systolic heart failure: Severely depressed ejection fraction continue IV diuresis 40 mg twice daily Status: Acute Qualifiers: Heart failure chronicity: acute on chronic Qualified Code(s): I50.23 - Acute on chronic systolic (congestive) heart failure (3) Atrial fibrillation: On multiple medicines including amiodarone and digoxin. Slightly better today heart rate clay continue to monitor Status: Acute Qualifiers: Atrial fibrillation type: persistent (not longstanding) Qualified Code(s): I48.19 - Other persistent atrial fibrillation (4) GI bleed: Hemoglobin around more than 8. Continue PPI Status: Acute Qualifiers: GI bleed type/associated pathology: unspecified gastrointestinal hemorrhage type Qualified Code(s): K92.2 - Gastrointestinal hemorrhage, unspecified (5) Elevated troponin: Most likely due to decompensated systolic failure Status: Acute Additional A&P Information s/p Bio MVR : well seated, no significant regurgitation noted s/p tricuspid valve ring annuloplasty: residual moderate MR h/o PVC's Anemia CKD Emphysema h/o lung nodule Smoker Thank you for allowing me to participate in patient's care. Please feel free to call with questions or concerns Attestations Medical Necessity Statement*: Require continuation hospitalization for above defined care. Coding Level of Care Code Established Pt Acute Conference Center Manager for Chg Fwd Patient Type Established History Expanded Problem Focused Exam Expanded Problem Focused Medical Decision Making Moderate Complexity Diagnoses Shortness of breath R06.02 Systolic heart failure I50.23 Heart failure chronicity: acute on chronic Atrial fibrillation I48.19 Atrial fibrillation type: persistent (not longstanding) GI bleed K92.2 GI bleed type/associated pathology: unspecified gastrointestinal hemorrhage type Elevated troponin R77.8
[2020-06-09] MEDS: atorvastatin 40 mg Tablet 20 MG PO (18:00)
[2020-06-10] VITALS (53 sets, daily range): BP systolic 73–126; BP diastolic 53–97; PULSE 97–161; RESP 17–32; TEMP 33.5–37; O2SAT 86–100; BMI 34.1
[2020-06-10] MEDS: ondansetron 2 mg/ML SDV 2 mL 4 MG IVP (00:49)
[2020-06-10 01:09] LABS: Glucose Point of Care 128 mg/dL (70-110)
[2020-06-10 05:34] LABS: Magnesium 2.1 mg/dL (1.7-2.3)
[2020-06-10 05:36] LABS: Alanine Aminotransferase 33 U/L (0-41); Albumin Level 3.4 g/dL (3.5-5.2); Alkaline Phosphatase 168 IU/L (40-130); Aspartate Amino Transferase 23 U/L (0-40); Blood Urea Nitrogen 28 mg/dL (8-23); Calcium 8.8 mg/dL (8.5-10.5); Carbon Dioxide 26 mmol/L (22-29); Chloride 99 mmol/L (98-107); Globulin 2.3 g/dL (1.3-4.6); Glomerular Filtration Rate 43.9 mL/min (90-130); Glucose 108 mg/dL (65-115); Osmolality Calculated 292 mOsm/kg (285-295); Sodium 138 mmol/L (136-145); Total Bilirubin 0.5 mg/dL (0.15-1.2); Total Protein 5.7 g/dL (6.6-8.7)
[2020-06-10 06:02] LABS: Anion Gap 17.4 (5-19); Potassium 4.4 mmol/L (3.5-5.1)
[2020-06-10] MEDS: metoprolol tartrate 25 mg Tablet PO ×3 (08:05→22:11)
[2020-06-10] MEDS: pantoprazole DR 40 mg Tablet PO ×2 (08:05→18:22)
[2020-06-10] MEDS: FUROsemide 10 mg/mL SDV 10mL 60 MG IVP ×2 (08:05→20:07)
--- NOTE | 2020-06-10 09:32 | PC.CHAP ---
Pastoral Care Encounter/Spiritual Assessment Type of Contact [] Declined leather patcher visit [] Patient/Family/Request visit [] Outpatient visit [] Follow-up visit [] Physician referral [] Code/Alert [] Routine visit [] Staff referral [] Actively dying [] Patient sleeping [] Family support [] [] Out of room [] Palliative care [] [] Receiving care in room [] Pre-surgical visit [] Trauma [] Long length of stay [x] ICU visit [] Other: Relational/Emotional Strength [] Patient feels connected with others/family/visitors/staff [] Distress [] Loneliness/isolation [] Abandonment Spirituality of Patient [] Person of Dolly [] Attends Moravian of their Dolly [] Believes in Prayer [] Reads Bible or Orthodox materials [] There are Spiritual issues to be addressed Nurse Anesthesia Program Director Interventions [x] Prayer [] Active listening [] Non-anxious presence [] Spiritual/emotional support [] Crisis/trauma care [] Spiritual counseling [] Bereavement support [] Provided bereavement packet [] Provided Bible/devotional materials [] Provided toy/stuffed animal, coloring book to patient or family member [] Provided Communion [] Anointing/[place] [] Salvation [x] Completed spiritual assessment [] Other: Impact on Illness or Injury [] Angry [] Fearful [] Anxious [] Often cries [] Exhaustion [] Unable to work [] Unable to attend taoist [] Unable to walk/stand [] Unable to read [] Unable to drive [] Unable to eat/drink [] Unable to sleep [] Unable to be with family [] Patient intubated [] Other: Summary Time spent with patient
[2020-06-10 10:21] LABS: Basophils % 0.1 %; Hemoglobin 9.6 g/dL (11.7-16.6); Lymphocytes # 0.9 10^3/uL (0.8-4.8); Lymphocytes % 9.2 %; Mean Corpuscular Hemoglobin 28.4 pg (28.0-34.0); Mean Corpuscular Volume 88.8 fL (80-94); Mean Platelet Volume 11.3 fL (7.4-10.4); Monocytes # 0.7 10^3/uL (0.2-0.9); Neutrophils # 8.43 10^3/uL (1.8-7.7); Neutrophils % 82.5 %; Nucleated Red Blood Cells % 0 %; Platelet Count 320 10^3/cmm (130-400); Red Blood Count 3.38 10^6/uL (4.1-5.3); White Blood Count 10.2 10^3/uL (4.0-10.0)
--- NOTE | 2020-06-10 10:43 | P.PN_ITS ---
Subjective Subjective: Interval history: Rikki reports he feels little bit better today. No chest pain. Still short of breath. Medications: Reviewed: Yes Vitals/I&O/Wt Last Vital Signs Temp 98.1 F 06/10/20 08:30 Pulse 119 H 06/10/20 10:30 Resp 22 H 06/10/20 10:30 BP 85/60 06/10/20 10:30 Pulse Ox 92 06/10/20 10:30 06/09/20 06/10/20 06/10/20 22:59 06:59 14:59 Intake Total 1068.33 / 1548.33 480 / 480 Output Total 725 / 1275 200 / 1475 550 / 550 Balance 343.33 / 273.33 -200 / 73.33 -70 / -70 Weight last 48 hrs Weight 111.1 kg Weight 111.1 kg Physical Exam Narrative: EXAM NARRATIVE: General exam is a white male no distress. Telemetry shows persistent atrial fibrillation with rapid ventricular rate Cardiovascular tachycardic, irregular, irregular. No obvious murmur but rate is accelerated. Lungs demonstrate no wheezing but crackles are still heard at the bases Abdomen is soft, positive bowel sounds. No obvious organomegaly. Left flank/back has pain pump. Pouch from previous pain pump is noted on his abdomen on the left. Extremities trace edema bilaterally. No tenderness to palpation Data : 06/10/20 09:50 06/10/20 04:40 A&P Assessment and plan (1) GI bleed: Change Protonix to 40 mg twice daily Cardiac diet initiated and he is tolerating well No evidence of recurrent bleeding. Initiate aspirin 81 mg daily Hemoglobin for the most part has remained stable from admission and no evidence of ongoing bleeding has been established. Status: Acute Qualifiers: GI bleed type/associated pathology: unspecified gastrointestinal hemorrhage type Qualified Code(s): K92.2 - Gastrointestinal hemorrhage, unspecified (2) Respiratory failure: Oxygen as needed Albuterol/ipratropium as needed CT of chest was performed yesterday. It demonstrates moderate pleural effusions bilaterally right greater than left and evidence of pulmonary edema. At this point I clinically do not have a reason to believe he has pneumonia. I believe his pleural effusions are secondary to congestive heart failure. Status: Acute Qualifiers: Chronicity: acute Respiratory failure complication: hypoxia Qualified Code(s): J96.01 - Acute respiratory failure with hypoxia (3) Atrial fibrillation: Appreciate cardiology consultation Currently amiodarone drip, metoprolol Cardiology ordered several doses of digoxin during his hospital course but he is not on a regular dose. I suspect he recently had rate control issues as he was on mexiletine coming in to hospital this visit and was not in March during an office visit then. Cannot rule out need for cardioversion at this point. Discussed with cardiology today. They will reevaluate his course to see if better rate control can occur. I also visited with him about possible need for thoracentesis versus more aggressive diuresis for his congestive heart failure. Status: Acute Qualifiers: Atrial fibrillation type: persistent (not longstanding) Qualified Code(s): I48.19 - Other persistent atrial fibrillation (4) Systolic heart failure: Has not had a significant diuresis. Increase Lasix to 60 mg IV every 12 hours Fluid restrict to 1200 cc Pleural effusions bilaterally consistent with his CHF Appreciate cardiology recommendations Status: Acute Qualifiers: Heart failure chronicity: acute on chronic Qualified Code(s): I50.23 - Acute on chronic systolic (congestive) heart failure (5) Elevated troponin: Type II elevation. No evidence of acute myocardial infarction Status: Acute (6) Hypotension: Monitor blood pressures closely. This may be driven by his low EF, and medications being used for atrial fibrillation with rapid ventricular rate Status: Acute Additional A&P Information Lower extremity edema. Venous duplex was checked and negative recent history of valvular replacement and valvular repair. Old records have melvin michaud reviewed History of chronic bronchitis Coronary artery disease with history of coronary artery bypass grafting Hypertension. Holding medication currently secondary to soft blood pressure. Hyperlipidemia. Continue statin History of tobacco use, recently quit. Encouraged is abstinence. Chronic kidney disease. Avoid renal toxic medications. Multiple other medical problems as outlined in past medical history Full code SCDs for DVT prophylaxis, anticoagulation contraindicated secondary to GI bleeding. If hemoglobin remained stable consider initiation of anticoagulation for DVT prophylaxis 1 to 2 days. Attestations Medical Necessity Statement*: Needs continued hospitalization for better rate control secondary to atrial fibrillation with rapid ventricular rate. Coding Level of Care Code Acute Sheet Metal Insulator for Chica Stout Diagnoses GI bleed K92.2 GI bleed type/associated pathology: unspecified gastrointestinal hemorrhage type Respiratory failure J96.01 Chronicity: acute Respiratory failure complication: hypoxia Atrial fibrillation I48.19 Atrial fibrillation type: persistent (not longstanding) Systolic heart failure I50.23 Heart failure chronicity: acute on chronic Elevated troponin R77.8 Hypotension I95.9
[2020-06-10] MEDS: aspirin 81 mg EC Tablet PO (11:45)
[2020-06-10] MEDS: DOBUTamine drip 500 MG/250 ML PREMIX 16.7 MG IV (12:37)
[2020-06-10] MEDS: digoxin 250 mcg/ml INJ 2 mL IVP (13:36)
--- NOTE | 2020-06-10 14:06 | P.PN_ITS ---
Subjective Subjective: Interval history: Equals heart rate is not well controlled despite of optimization of medicine amiodarone Cardizem. He remains in heart failure he has severely depressed ejection fraction with ejection fraction around 15% and dilated cardiomyopathy Medications: Reviewed: Yes Vitals/I&O/Wt Last Vital Signs Temp 98.1 F 06/10/20 08:30 Pulse 119 H 06/10/20 10:30 Resp 22 H 06/10/20 10:30 BP 85/60 06/10/20 10:30 Pulse Ox 92 06/10/20 10:30 06/09/20 06/10/20 06/10/20 22:59 06:59 14:59 Intake Total 1068.33 / 1548.33 494.752 / 494.752 Output Total 725 / 1275 200 / 1475 550 / 550 Balance 343.33 / 273.33 -200 / 73.33 -55.248 / -55.248 Weight last 48 hrs Weight 244 lb 14.937 oz Weight 244 lb 14.937 oz Physical Exam Narrative: EXAM NARRATIVE: GENERAL: Patient is alert, awake and oriented x3. NECK: No jugular vein distension. HEENT: No cyanosis. No icterus. No pallor. HEART: Irregularly irregular S1 and S2. No murmur, rub or gallop. LUNGS: Decreased breath sounds bilaterally. ABDOMEN: Soft, nontender and nondistended. Positive bowel sounds. No guarding, rebound or tenderness. CENTRAL NERVOUS SYSTEM: Grossly nonfocal. EXTREMITIES: Lower extremities without edema bilaterally. Data : 06/10/20 09:50 06/10/20 04:40 A&P Assessment and plan (1) ASHD (arteriosclerotic heart disease): Stable from coronary disease perspective Status: Acute (2) Heart failure with reduced ejection fraction: Patient has acute on chronic decompensated systolic heart failure with severely depressed LV function and dilated cardiomyopathy. Patient has recently been had surgery with bypass and mitral valve replacement he has moderate right- sided pleural effusion which we think may require tapping. Status: Acute (3) S/P CABG (coronary artery bypass graft): Status: Acute (4) Hypotension: Multifactorial due to his severely depressed LV function LV dysfunction and atrial fibrillation and heart failure. We have tried dobutamine but due to tachycardia we have to back off. Status: Acute Qualifiers: Hypotension type: unspecified hypotension type Qualified Code(s): I95.9 - Hypotension, unspecified (5) Atrial fibrillation: Patient has A. fib with RVR on amiodarone Cardizem was stopped due to hypotension. Will add digoxin. Status: Acute Qualifiers: Atrial fibrillation type: persistent (not longstanding) Qualified Code(s): I48.19 - Other persistent atrial fibrillation Attestations Medical Necessity Statement*: Require continuation hospitalization for above defined care. Coding Level of Care Code Established Pt Acute New Accounts Representative for Chg Fwd Patient Type Established History Comprehensive Exam Comprehensive Medical Decision Making High Complexity Diagnoses ASHD (arteriosclerotic heart disease) I25.10 Heart failure with reduced ejection fraction I50.20 S/P CABG (coronary artery bypass graft) Z95.1 Hypotension I95.9 Hypotension type: unspecified hypotension type Atrial fibrillation I48.19 Atrial fibrillation type: persistent (not longstanding)
[2020-06-10] MEDS: atorvastatin 40 mg Tablet 20 MG PO (18:22)
--- NOTE | 2020-06-10 21:44 | PC.NURSE ---
Pt's heart rate up to [address] Dupree called. Orders received. See MAR.
[2020-06-10] MEDS: ALPRAZolam 0.25 mg Tablet PO (22:16)
[2020-06-11] VITALS (40 sets, daily range): BP systolic 78–147; BP diastolic 48–117; PULSE 84–142; RESP 16–29; TEMP 36.6–36.9; O2SAT 77–100
[2020-06-11] MEDS: metoprolol tartrate 25 mg Tablet 12.5 MG PO (06:42)
[2020-06-11] MEDS: amiodarone 200 mg Tablet 400 MG PO ×3 (06:42→20:02)
--- NOTE | 2020-06-11 08:00 | US_ITS ---
WS: [id number] ULTRASOUND-GUIDED THORACENTESIS, therapeutic and diagnostic. HISTORY: pleural effusion, right side Procedure, risks, and complications were explained to the patient. With the patient in an upright pos ition, the skin over the RIGHT posterior thorax was cleansed with ChloraPrep and anesthetized with 1% buffered lidocaine. A 5 Bangladeshi Yueh needle is inserted into the pleural fluid without complication. Approximately 700 cc of tea colored pleural fluid is removed without difficulty. Specimen collected for analysis as requested. / thoracentesis [id number] IMPRESSION: 1. RIGHT thoracentesis yielding 700 cc of fluid. 2. Chest radiograph to follow to evaluate for pneumothorax.
[2020-06-11 08:24] LABS: Basophils % 0.2 %; Hemoglobin 9.3 g/dL (11.7-16.6); Lymphocytes # 1.1 10^3/uL (0.8-4.8); Lymphocytes % 9.3 %; Mean Corpuscular HGB Conc 32.1 g/dL (30.0-36.0); Mean Corpuscular Hemoglobin 28.1 pg (28.0-34.0); Mean Corpuscular Volume 87.6 fL (80-94); Mean Platelet Volume 11.1 fL (7.4-10.4); Monocytes # 0.9 10^3/uL (0.2-0.9); Monocytes % 7.4 %; Neutrophils # 9.72 10^3/uL (1.8-7.7); Neutrophils % 82.4 %; Nucleated Red Blood Cells % 0 %; Platelet Count 328 10^3/cmm (130-400); Red Blood Count 3.31 10^6/uL (4.1-5.3); Red Cell Distribution Width 15.4 % (12.1-15.1); White Blood Count 11.8 10^3/uL (4.0-10.0)
[2020-06-11 08:40] LABS: Alanine Aminotransferase 25 U/L (0-41); Albumin Level 3.6 g/dL (3.5-5.2); Alkaline Phosphatase 162 IU/L (40-130); Aspartate Amino Transferase 14 U/L (0-40); Blood Urea Nitrogen 26 mg/dL (8-23); Calcium 8.7 mg/dL (8.5-10.5); Carbon Dioxide 29 mmol/L (22-29); Chloride 98 mmol/L (98-107); Globulin 2.3 g/dL (1.3-4.6); Glomerular Filtration Rate 40.9 mL/min (90-130); Glucose 103 mg/dL (65-115); Osmolality Calculated 289 mOsm/kg (285-295); Sodium 137 mmol/L (136-145); Total Bilirubin 0.6 mg/dL (0.15-1.2); Total Protein 5.9 g/dL (6.6-8.7)
[2020-06-11] MEDS: metoprolol tartrate 25 mg Tablet PO ×2 (08:40→20:02)
[2020-06-11] MEDS: aspirin 81 mg EC Tablet PO (08:40)
[2020-06-11] MEDS: pantoprazole DR 40 mg Tablet PO ×2 (08:40→17:38)
[2020-06-11] MEDS: FUROsemide 10 mg/mL SDV 10mL 60 MG IVP ×2 (08:41→20:01)
--- NOTE | 2020-06-11 09:33 | XR_ITS ---
WS: [id number] PORTABLE CHEST HISTORY: right thoracentesis COMPARISON: 06/09/2020 No right-sided pneumothorax status post thoracentesis. Minimal blunting of the RIGHT costophrenic ang le. Loculated effusion in the LEFT lower thorax. Similar to the prior study. Mild pulmonary venous conges tion with improvement since the prior study. Cardiac size: Moderately enlarged cardiac silhouette. Mediastinum/Aorta: Mild atherosclerosis aorta. No osseous abnormality seen. Prior CABG. XR/XR chest 1V portable [id number] IMPRESSION: 1. Status post RIGHT thoracentesis with no pneumothorax. 2. Very minimal residual pleural thickening versus pleural fluid at the RIGHT costophrenic angle. 3. Small loculated LEFT pleural effusion.
--- NOTE | 2020-06-11 10:08 | XR_ITS ---
WS: [id number] Portable AP upright chest, 06/11/2020, 1029 hours Clinical Data: PICC Comparison: Portable chest, 06/11/2020, 1000 hours Findings: There is a small right pleural effusion but no pneumothorax. There is a loculated effusion on the left. The right PICC line ends in the superior vena cava. No pneumothorax is seen. Monitor sherman ds on the chest wall. Midline sternotomy sutures are seen. XR/XR chest 1V portable [id number] Impression: Satisfactory insertion of right PICC line.
--- NOTE | 2020-06-11 10:12 | P.PN_ITS ---
Subjective Subjective: Interval history: Rikki reports he is doing okay. He feels like his shortness of breath is a little bit better. Not dizzy currently. No chest pain. IV areas hurt badly. Medications: Reviewed: Yes Vitals/I&O/Wt Last Vital Signs Temp 97.9 F 06/11/20 09:00 Pulse 117 H 06/11/20 09:00 Resp 20 H 06/11/20 09:00 BP 99/77 06/11/20 09:00 Pulse Ox 100 06/11/20 09:00 06/10/20 06/11/20 06/11/20 22:59 06:59 14:59 Intake Total 530.063 / 1024.815 648.448 / 1673.263 Output Total 1025 / 1975 600 / 2575 100 / 100 Balance -494.937 / -950.185 48.448 / -901.737 -100 / -100 Weight last 48 hrs Weight 105.5 kg Weight 111.1 kg Physical Exam Narrative: EXAM NARRATIVE: General exam is a white male no distress. Telemetry shows persistent atrial fibrillation with rapid ventricular rate Cardiovascular tachycardic, irregular, irregular. No obvious murmur but rate is accelerated. Lungs demonstrate diminished breath sounds bilaterally but I do not hear any crackles today. Abdomen is soft, positive bowel sounds. No obvious organomegaly. Left flank/back has pain pump. Pouch from previous pain pump is noted on his abdomen on the left. Extremities trace edema bilaterally. No tenderness to palpation Data : 06/11/20 08:13 06/11/20 08:13 A&P Assessment and plan (1) GI bleed: Continue Protonix to 40 mg twice daily Cardiac diet initiated and he is tolerating well No evidence of recurrent bleeding. Continue aspirin 81 mg daily Hemoglobin for the most part has remained stable from admission and no evidence of ongoing bleeding has been established. Status: Acute Qualifiers: GI bleed type/associated pathology: unspecified gastrointestinal hemorrhage type Qualified Code(s): K92.2 - Gastrointestinal hemorrhage, unspecified (2) Respiratory failure: Oxygen as needed Albuterol/ipratropium as needed CT of chest was performed. It demonstrates moderate pleural effusions bilaterally right greater than left and evidence of pulmonary edema. At this point I clinically do not have a reason to believe he has pneumonia. Thoracentesis planned today Status: Acute Qualifiers: Chronicity: acute Respiratory failure complication: hypoxia Qualified Code(s): J96.01 - Acute respiratory failure with hypoxia (3) Atrial fibrillation: Appreciate cardiology consultation Currently amiodarone drip, metoprolol Repeat dose of digoxin 250 mcg IV now. Digoxin level in the morning Likely start oral digoxin tomorrow Placed on dobutamine per cardiology. Has so far been able to only tolerate 2.5 mcg/kg/min dosing currently. Cardiology ordered several doses of digoxin during his hospital course but he is not on a regular dose. I suspect he recently had rate control issues as he was on mexiletine coming in to hospital this visit and was not in March during an office visit then. Cannot rule out need for cardioversion at this point. Status: Acute Qualifiers: Atrial fibrillation type: persistent (not longstanding) Qualified Code(s): I48.19 - Other persistent atrial fibrillation (4) Systolic heart failure: Continue Lasix 60 mg IV every 12 hours. He is diuresed approximately 1 L. In the last 24 hours Fluid restrict to 1200 cc Pleural effusions bilaterally consistent with his CHF Appreciate cardiology recommendations Status: Acute Qualifiers: Heart failure chronicity: acute on chronic Qualified Code(s): I50.23 - Acute on chronic systolic (congestive) heart failure (5) Elevated troponin: Type II elevation. No evidence of acute myocardial infarction Status: Acute (6) Hypotension: Monitor blood pressures closely. This may be driven by his low EF, and medications being used for atrial fibrillation with rapid ventricular rate Status: Acute Qualifiers: Hypotension type: unspecified hypotension type Qualified Code(s): I95.9 - Hypotension, unspecified Additional A&P Information Lower extremity edema. Venous duplex was checked and negative recent history of valvular replacement and valvular repair. Old records have been reviewed History of chronic bronchitis Coronary artery disease with history of coronary artery bypass grafting Hypertension. Holding medication currently secondary to soft blood pressure. Hyperlipidemia. Continue statin History of tobacco use, recently quit. Encouraged is abstinence. Chronic kidney disease. Avoid renal toxic medications. Multiple other medical problems as outlined in past medical history Full code SCDs for DVT prophylaxis, anticoagulation contraindicated secondary to GI bleeding. If hemoglobin remained stable consider initiation of anticoagulation for DVT prophylaxis 1 to 2 days. Needs PICC line for vascular access, drawing blood, IV dobutamine in this patient who is become a very difficult IV stick. Attestations Medical Necessity Statement*: Needs continued hospital stay for close follow- up of atrial fibrillation with rapid ventricular rate, CHF. Coding Level of Care Code Acute Diamond Cleaver for g Fwd Diagnoses GI bleed K92.2 GI bleed type/associated pathology: unspecified gastrointestinal hemorrhage type Respiratory failure J96.01 Chronicity: acute Respiratory failure complication: hypoxia Atrial fibrillation I48.19 Atrial fibrillation type: persistent (not longstanding) Systolic heart failure I50.23 Heart failure chronicity: acute on chronic Elevated troponin R77.8 Hypotension I95.9 Hypotension type: unspecified hypotension type
[2020-06-11 10:33] LABS: Body Fluid Polynuclear #Cells 0.037; Body Fluid WBC 431 /uL; Monocytes # Body Fluid 0.394
[2020-06-11] MEDS: digoxin 250 mcg/ml INJ 2 mL IVP (10:37)
[2020-06-11 11:16] LABS: Apprearance, Body Fluid CLOUDY; Color, Body Fluid PALE YELLOW
[2020-06-11 11:17] LABS: Albumin Body Fluid 1.3 g/dL; Creatinine Body Fluid 1.69 (0.7-1.2); LDH Pleural Fluid 127 U/L; Total Protein Pleural Fluid 2.1 g/dL; Triglycerides, Pleural Fluid 21 mg/dL
--- NOTE | 2020-06-11 16:06 | PC.SOCIAL ---
*IMM* Patient received an important message from Medicare. Patient received original. Copy in chart.
[2020-06-11] MEDS: atorvastatin 40 mg Tablet 20 MG PO (17:38)
--- NOTE | 2020-06-11 18:34 | PM.PN ---
Subjective Subjective: Interval history: Feeling much better after pleurocentesis Medications: Reviewed: Yes Vitals/I&O/Wt Last Vital Signs Temp 97.9 F 06/11/20 09:00 Pulse 120 H 06/11/20 18:00 Resp 22 H 06/11/20 18:00 BP 111/67 06/11/20 17:30 Pulse Ox 92 06/11/20 18:00 06/11/20 06/11/20 06/11/20 06:59 14:59 22:59 Intake Total 648.448 / 1673.263 760 / 760 240 / 1000 Output Total 600 / 2575 1000 / 1000 250 / 1250 Balance 48.448 / -901.737 -240 / -240 -10 / -250 Weight last 48 hrs Weight 232 lb 9.403 oz Weight 244 lb 14.937 oz Physical Exam Narrative: EXAM NARRATIVE: GENERAL: Patient is alert, awake and oriented x3. Sitting in the chair feeling much better NECK: No jugular vein distension. HEENT: No cyanosis. No icterus. No pallor. HEART: Irregularly irregular S1 and S2. No murmur, rub or gallop. LUNGS: Patient has now good air entry on the right side. Left side still reduced ABDOMEN: Soft, nontender and nondistended. Positive bowel sounds. No guarding, rebound or tenderness. CENTRAL NERVOUS SYSTEM: Grossly nonfocal. EXTREMITIES: Lower extremities without edema bilaterally. Data : 06/11/20 09:53 06/11/20 08:13 Micro: Microbiology 06/11/20 09:53 Gram Stain - Final Pleural Fluid A&P Assessment and plan (1) ASHD (arteriosclerotic heart disease): Stable from coronary disease perspective Status: Acute (2) Heart failure with reduced ejection fraction: Appear to be compensated continue current regimen Status: Acute (3) S/P CABG (coronary artery bypass graft): Status: Acute (4) Hypotension: Improved Status: Acute Qualifiers: Hypotension type: unspecified hypotension type Qualified Code(s): I95.9 - Hypotension, unspecified (5) Atrial fibrillation: Switching to p.o. amiodarone 400 mg 3 times daily and metoprolol 25 twice daily. Status: Acute Qualifiers: Atrial fibrillation type: persistent (not longstanding) Qualified Code(s): I48.19 - Other persistent atrial fibrillation Additional A&P Information s/p Bio MVR : well seated, no significant regurgitation noted s/p tricuspid valve ring annuloplasty: residual moderate MR h/o PVC's Anemia CKD Emphysema h/o lung nodule Smoker Thank you for allowing me to participate in patient's care. 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
[2020-06-11] MEDS: ALPRAZolam 0.25 mg Tablet PO (20:02)
[2020-06-12] VITALS (22 sets, daily range): BP systolic 78–149; BP diastolic 52–96; PULSE 87–144; RESP 12–24; TEMP 36.4–37.1; O2SAT 85–99
[2020-06-12 03:43] LABS: Basophils % 0.2 %; Hematocrit 31.3 % (42.0-52.0); Hemoglobin 9.8 g/dL (11.7-16.6); Lymphocytes # 1.3 10^3/uL (0.8-4.8); Lymphocytes % 10.3 %; Mean Corpuscular HGB Conc 31.3 g/dL (30.0-36.0); Mean Corpuscular Hemoglobin 27.8 pg (28.0-34.0); Mean Corpuscular Volume 88.7 fL (80-94); Mean Platelet Volume 11.2 fL (7.4-10.4); Monocytes % 7.7 %; Neutrophils # 10.33 10^3/uL (1.8-7.7); Neutrophils % 81.2 %; Nucleated Red Blood Cells % 0 %; Platelet Count 314 10^3/cmm (130-400); Red Blood Count 3.53 10^6/uL (4.1-5.3); Red Cell Distribution Width 15.3 % (12.1-15.1); White Blood Count 12.7 10^3/uL (4.0-10.0)
[2020-06-12 04:13] LABS: Alanine Aminotransferase 21 U/L (0-41); Albumin Level 3.1 g/dL (3.5-5.2); Alkaline Phosphatase 143 IU/L (40-130); Anion Gap 13.9 (5-19); Aspartate Amino Transferase 12 U/L (0-40); Blood Urea Nitrogen 26 mg/dL (8-23); Calcium 8.7 mg/dL (8.5-10.5); Carbon Dioxide 31 mmol/L (22-29); Chloride 95 mmol/L (98-107); Glomerular Filtration Rate 38.3 mL/min (90-130); Glucose 106 mg/dL (65-115); Osmolality Calculated 287 mOsm/kg (285-295); Potassium 3.9 mmol/L (3.5-5.1); Sodium 136 mmol/L (136-145); Total Bilirubin 0.7 mg/dL (0.15-1.2); Total Protein 6.1 g/dL (6.6-8.7)
[2020-06-12 04:18] LABS: Digoxin 1.7 ng/mL (0.6-1.2)
[2020-06-12 08:02] LABS: Procalcitonin 0.13 ng/mL (0-0.5)
[2020-06-12] MEDS: pantoprazole DR 40 mg Tablet PO ×2 (08:03→17:35)
[2020-06-12] MEDS: FUROsemide 10 mg/mL SDV 4mL 40 MG IVP ×2 (08:03→20:58)
[2020-06-12] MEDS: metoprolol tartrate 25 mg Tablet PO (08:03)
[2020-06-12] MEDS: amiodarone 200 mg Tablet 400 MG PO ×3 (08:03→20:46)
[2020-06-12] MEDS: aspirin 81 mg EC Tablet PO (08:03)
--- NOTE | 2020-06-12 09:59 | PM.PN ---
Subjective Subjective: Interval history: Rikki reports he is breathing okay this morning. Some in his sternum when he coughs. Less short of breath. Denies any significant swelling. Medications: Reviewed: Yes Vitals/I&O/Wt Last Vital Signs Temp 97.6 F 06/12/20 07:00 Pulse 144 H 06/12/20 08:00 Resp 23 H 06/12/20 04:00 BP 118/66 06/12/20 09:00 Pulse Ox 97 06/12/20 09:00 06/11/20 06/12/20 06/12/20 22:59 06:59 14:59 Intake Total 240 / 1000 518 / 1518 240 / 240 Output Total 1300 / 2300 300 / 300 Balance -1060 / -1300 518 / -782 -60 / -60 Weight last 48 hrs Weight 105.687 kg Weight 105.5 kg Physical Exam Narrative: EXAM NARRATIVE: General exam is a white male no distress. Telemetry shows persistent atrial fibrillation with rapid ventricular rate. This has drifted down to around 100-120. 740 cc out overnight more than in. Cardiovascular tachycardic, irregular, irregular. No obvious murmur but rate is accelerated. Lungs demonstrate diminished breath sounds bilaterally but I do not hear any crackles today. Abdomen is soft, positive bowel sounds. No obvious organomegaly. Left flank/back has pain pump. Pouch from previous pain pump is noted on his abdomen on the left. Extremities no edema Data : 06/12/20 03:09 06/12/20 03:09 Micro: Microbiology 06/11/20 09:53 Gram Stain - Final Pleural Fluid A&P Assessment and plan (1) GI bleed: Continue Protonix to 40 mg twice daily Cardiac diet initiated and he is tolerating well No evidence of recurrent bleeding. Continue aspirin 81 mg daily Hemoglobin for the most part has remained stable from admission and no evidence of ongoing bleeding has been established. Status: Acute Qualifiers: GI bleed type/associated pathology: unspecified gastrointestinal hemorrhage type Qualified Code(s): K92.2 - Gastrointestinal hemorrhage, unspecified (2) Respiratory failure: Oxygen as needed Albuterol/ipratropium as needed CT of chest was performed. It demonstrates moderate pleural effusions bilaterally right greater than left and evidence of pulmonary edema. At this point I clinically do not have a reason to believe he has pneumonia. White blood cell count has slightly crept up in the last 2 days. Repeated procalcitonin level which is negative today. He has had no fever, or chills. Thoracentesis yielded 700 cc of transudate. Usual studies Repeat CXR tomorrow. Status: Acute Qualifiers: Chronicity: acute Respiratory failure complication: hypoxia Qualified Code(s): J96.01 - Acute respiratory failure with hypoxia (3) Atrial fibrillation: Appreciate cardiology consultation Currently amiodarone, metoprolol Last dose of digoxin given June 11. Digoxin level high this morning. Will not initiate digoxin therapy currently. He is now off dobutamine He was transition to oral amiodarone I suspect he recently had rate control issues as he was on mexiletine coming in to hospital this visit and was not in March during an office visit then. Cannot rule out need for cardioversion at this point as heart rate still does not have good control. Status: Acute Qualifiers: Atrial fibrillation type: persistent (not longstanding) Qualified Code(s): I48.19 - Other persistent atrial fibrillation (4) Systolic heart failure: Reduce Lasix to 40 mg IV every 12 hours. He diuresed again, and from admission he is -2100 cc Fluid restrict to 1200 cc Pleural effusions bilaterally consistent with his CHF. Had thoracentesis June 11 right side Appreciate cardiology recommendations Status: Acute Qualifiers: Heart failure chronicity: acute on chronic Qualified Code(s): I50.23 - Acute on chronic systolic (congestive) heart failure (5) Elevated troponin: Type II elevation. No evidence of acute myocardial infarction Status: Acute (6) Hypotension: Monitor blood pressures closely. This may be driven by his low EF, and medications being used for atrial fibrillation with rapid ventricular rate Status: Acute Qualifiers: Hypotension type: unspecified hypotension type Qualified Code(s): I95.9 - Hypotension, unspecified Additional A&P Information Lower extremity edema. Venous duplex was checked and negative recent history of valvular replacement and valvular repair. Old records have been reviewed History of chronic bronchitis Coronary artery disease with history of coronary artery bypass grafting Hypertension. Holding medication currently secondary to soft blood pressure. Hyperlipidemia. Continue statin History of tobacco use, recently quit. Encouraged is abstinence. Chronic kidney disease. Avoid renal toxic medications. Multiple other medical problems as outlined in past medical history Full code SCDs for DVT prophylaxis, anticoagulation contraindicated secondary to GI bleeding on admission. He has been stable however. Hemoglobin has increased. Initiate heparin 5000 units subcutaneous every 12 hours PICC line placed yesterday for access/blood draws. I will discuss with cardiology today whether he is appropriate to transition to the cardiac stepdown unit. Attestations Medical Necessity Statement*: Needs continued hospital stay for treatment of severe congestive heart failure, atrial fibrillation with rapid ventricular rate. Coding Level of Care Code Acute Finance Broker for [facility] Fwd Diagnoses GI bleed K92.2 GI bleed type/associated pathology: unspecified gastrointestinal hemorrhage type Respiratory failure J96.01 Chronicity: acute Respiratory failure complication: hypoxia Atrial fibrillation I48.19 Atrial fibrillation type: persistent (not longstanding) Systolic heart failure I50.23 Heart failure chronicity: acute on chronic Elevated troponin R77.8 Hypotension I95.9 Hypotension type: unspecified hypotension type
[2020-06-12] MEDS: metoprolol tartrate 25 mg Tablet 12.5 MG PO (10:32)
[2020-06-12] MEDS: heparin 5,000 unit/mL INJ 1 mL 5000 UNIT SUBCUT ×2 (10:32→22:07)
--- NOTE | 2020-06-12 13:47 | PC.NURSE ---
Patient with implanted fentanyl pain pump, device at bedside to allow patient to deliever bolus of medication as needed. permission to allow patient to use device as pt uses at home.
--- NOTE | 2020-06-12 17:05 | PC.NURSE ---
Recived patient from ICU. Pt's noted to be in afib with rvr rate of 120's. Patient is asymptomatic no chest pain or palpitations. MD is aware. Pt is oriented to his room and call light. Resting in bed, rails up x2.
--- NOTE | 2020-06-12 17:27 | PC.NURSE ---
patient requesting IV to be taking out of left hand at this time because its bothering him. PICC line in place
--- NOTE | 2020-06-12 17:30 | PC.NURSE ---
This RN has reviewed and agrees with all Rosette VERA's charting
[2020-06-12] MEDS: atorvastatin 40 mg Tablet 20 MG PO (17:35)
[2020-06-12] MEDS: metoprolol tartrate 25 mg Tablet 37.5 MG PO (20:47)
[2020-06-13] VITALS (12 sets, daily range): BP systolic 98–121; BP diastolic 52–66; PULSE 89–136; RESP 18–31; TEMP 35.9–37.1; O2SAT 95–99
--- NOTE | 2020-06-13 03:00 | PC.NURSE ---
PT IS RESTING IN BED. PT DENIES PAIN. WILL CONTINUE TO MONITOR.
[2020-06-13 03:51] LABS: Basophils % 0.1 %; Eosinophils % 0.1 %; Hematocrit 30.4 % (42.0-52.0); Hemoglobin 9.8 g/dL (11.7-16.6); Lymphocytes # 1.4 10^3/uL (0.8-4.8); Mean Corpuscular HGB Conc 32.2 g/dL (30.0-36.0); Mean Corpuscular Hemoglobin 28.3 pg (28.0-34.0); Mean Corpuscular Volume 87.9 fL (80-94); Mean Platelet Volume 10.9 fL (7.4-10.4); Monocytes % 8.5 %; Neutrophils # 9.15 10^3/uL (1.8-7.7); Neutrophils % 78.7 %; Nucleated Red Blood Cells % 0 %; Platelet Count 291 10^3/cmm (130-400); Red Blood Count 3.46 10^6/uL (4.1-5.3); White Blood Count 11.6 10^3/uL (4.0-10.0)
[2020-06-13 04:16] LABS: Alanine Aminotransferase 17 U/L (0-41); Albumin Level 3.2 g/dL (3.5-5.2); Alkaline Phosphatase 131 IU/L (40-130); Aspartate Amino Transferase 14 U/L (0-40); Blood Urea Nitrogen 32 mg/dL (8-23); Calcium 8.7 mg/dL (8.5-10.5); Carbon Dioxide 32 mmol/L (22-29); Chloride 94 mmol/L (98-107); Glomerular Filtration Rate 38.3 mL/min (90-130); Glucose 107 mg/dL (65-115); Osmolality Calculated 287 mOsm/kg (285-295); Sodium 135 mmol/L (136-145); Total Bilirubin 0.6 mg/dL (0.15-1.2); Total Protein 6.2 g/dL (6.6-8.7)
--- NOTE | 2020-06-13 06:44 | PC.NURSE ---
PT RESTING IN BED. PT DENIES PAIN AT THIS TIME. BED IS NOT ABLE TO GET PT WEIGHT. WILL CONTINUE TO MONITOR.
--- NOTE | 2020-06-13 07:00 | XRR_ITS ---
PROCEDURE INFORMATION: Exam: XR Chest, 1 View Exam date and time: 06/12/2020 11:59 PM Age: 64 years old Clinical indication: Prior surgery; Surgery type: Open heart; Patient HX: F/u pleural effusion; Additional info: Follow up pleural effusion TECHNIQUE: Imaging protocol: XR of the chest Views: 1 view. COMPARISON: CR XR chest 1V portable [id number] 06/11/2020 10:28 AM FINDINGS: Tubes, catheters and devices: PICC tip position low superior vena cava. Lungs: Atelectasis with effusion near the right costophrenic angle. Pleural space: Similar or mildly diminished volume of left lateral loculated pleural effusion. Heart/Mediastinum: Cardiac enlargement. Bones/joints: Postoperative sternotomy. XR/XR chest 1V portable [id number] IMPRESSION: 1. Similar or mildly diminished loculated lateral left pleural effusion. 2. Developing right lower lung atelectasis with small right pleural effusion.
--- NOTE | 2020-06-13 07:30 | NUR.SHIFT ---
Pt noted to have redness, arm swelling,pain and warmth on right arm Noted to have a hard painful lump on left AC. Pt stated he has previous IV in both arms. Infiltrated. Right arm elevated with 2 pillows.
[2020-06-13] MEDS: FUROsemide 10 mg/mL SDV 4mL 40 MG IVP ×2 (07:53→20:11)
[2020-06-13] MEDS: aspirin 81 mg EC Tablet PO (07:59)
[2020-06-13] MEDS: pantoprazole DR 40 mg Tablet PO ×2 (07:59→17:51)
[2020-06-13] MEDS: amiodarone 200 mg Tablet 400 MG PO ×3 (07:59→20:11)
--- NOTE | 2020-06-13 09:20 | DCPLANNER ---
IMM completed with pt on 06/13/20 @ 8364. Copy of rights given to pt.
[2020-06-13] MEDS: heparin 5,000 unit/mL INJ 1 mL 5000 UNIT SUBCUT ×2 (10:05→21:52)
[2020-06-13] MEDS: metoprolol tartrate 25 mg Tablet 37.5 MG PO (10:05)
--- NOTE | 2020-06-13 14:41 | PM.PN ---
Subjective Subjective: Interval history: No new complaints. . Medications: Reviewed: Yes Vitals/I&O/Wt Last Vital Signs Temp 97.6 F 06/13/20 10:27 Pulse 132 H 06/13/20 10:27 Resp 30 H 06/13/20 10:27 BP 119/63 06/13/20 10:27 Pulse Ox 95 06/13/20 10:27 06/12/20 06/13/20 06/13/20 22:59 06:59 14:59 Intake Total 196 / 1136 476 / 476 Output Total 300 / 800 Balance -104 / 336 476 / 476 Weight last 48 hrs Weight 105.687 kg Data : 06/13/20 03:25 06/13/20 03:25 Micro: Microbiology 06/11/20 09:53 Gram Stain - Final Pleural Fluid Body Fluid Culture - Preliminary 06/11/20 09:53 Mycobacterial Smear - Preliminary Body Fluids - Pleura A&P Assessment and plan (1) GI bleed: Continue Protonix to 40 mg twice daily Cardiac diet initiated and he is tolerating well Continue aspirin 81 mg daily Hb 9.8 today CBC in am Status: Acute Qualifiers: GI bleed type/associated pathology: unspecified gastrointestinal hemorrhage type Qualified Code(s): K92.2 - Gastrointestinal hemorrhage, unspecified (2) Respiratory failure: Oxygen as needed Albuterol/ipratropium as needed CT of chest was performed. It demonstrates moderate pleural effusions bilaterally right greater than left and evidence of pulmonary edema. At this point I clinically do not have a reason to believe he has pneumonia. White blood cell count has slightly crept up in the last 2 days. Repeated procalcitonin level which is negative today. He has had no fever, or chills. Thoracentesis yielded 700 cc of transudate. Usual studies Repeat CXR today showed mildly diminished loculated lateral left pleural effusion Status: Acute Qualifiers: Chronicity: acute Respiratory failure complication: hypoxia Qualified Code(s): J96.01 - Acute respiratory failure with hypoxia (3) Atrial fibrillation: Appreciate cardiology consultation Amiodarone 400 mg PO TID Metoprolol 50 mg Po BID Further med adjustemnt per cardiology Status: Acute Qualifiers: Atrial fibrillation type: persistent (not longstanding) Qualified Code(s): I48.19 - Other persistent atrial fibrillation (4) Systolic heart failure: lasix 40 mg IV BID Unclear if accurate output recording monitor daily weight Status: Acute Qualifiers: Heart failure chronicity: acute on chronic Qualified Code(s): I50.23 - Acute on chronic systolic (congestive) heart failure (5) Elevated troponin: Type II elevation. No evidence of acute myocardial infarction Status: Acute (6) Hypotension: Monitor blood pressures closely. This may be driven by his low EF, and medications being used for atrial fibrillation with rapid ventricular rate Status: Acute Qualifiers: Hypotension type: unspecified hypotension type Qualified Code(s): I95.9 - Hypotension, unspecified Additional A&P Information Lower extremity edema. Venous duplex was checked and negative recent history of valvular replacement and valvular repair. Old records have been reviewed History of chronic bronchitis Coronary artery disease with history of coronary artery bypass grafting Hypertension. Metoprolol 50 mg PO BID and lasix Hyperlipidemia. Continue statin History of tobacco use, recently quit. Encouraged is abstinence. Chronic kidney disease. Avoid renal toxic medications. Multiple other medical problems as outlined in past medical history Full code SCDs heparin 5000 units BID t. Attestations Medical Necessity Statement*: Continue hospitalization for management of IV diuresis and ongoing med adjustment Time Spent in Patient Care: Greater than 35 minutes (>than 50% of time spent in counselling and/or direct pt care on unit). Coding Level of Care Code [facility]chand[facility] Diagnoses GI bleed K92.2 GI bleed type/associated pathology: unspecified gastrointestinal hemorrhage type Respiratory failure J96.01 Chronicity: acute Respiratory failure complication: hypoxia Atrial fibrillation I48.19 Atrial fibrillation type: persistent (not longstanding) Systolic heart failure I50.23 Heart failure chronicity: acute on chronic Elevated troponin R77.8 Hypotension I95.9 Hypotension type: unspecified hypotension type
--- NOTE | 2020-06-13 17:01 | PM.PN ---
Subjective Subjective: Interval history: Continues to feel better and steadily improving heart rate jumps up when he walks around. Blood pressure is also stable. Medications: Reviewed: Yes Vitals/I&O/Wt Last Vital Signs Temp 96.7 F L 06/13/20 15:07 Pulse 91 06/13/20 15:07 Resp 18 06/13/20 15:07 BP 121/54 06/13/20 15:07 Pulse Ox 96 06/13/20 15:07 06/13/20 06/13/20 06/13/20 06:59 14:59 22:59 Intake Total 476 / 476 Balance 476 / 476 Weight last 48 hrs Weight 233 lb Physical Exam Narrative: EXAM NARRATIVE: GENERAL: Patient is alert, awake and oriented x3. Lying in the bed comfortably NECK: No jugular vein distension. HEENT: No cyanosis. No icterus. No pallor. HEART: Irregularly irregular S1 and S2. No murmur, rub or gallop. LUNGS: Patient has now good air entry on the right side. Left side still reduced ABDOMEN: Soft, nontender and nondistended. Positive bowel sounds. No guarding, rebound or tenderness. CENTRAL NERVOUS SYSTEM: Grossly nonfocal. EXTREMITIES: Lower extremities without edema bilaterally. Data : 06/13/20 03:25 06/13/20 03:25 Micro: Microbiology 06/11/20 09:53 Gram Stain - Final Pleural Fluid Body Fluid Culture - Preliminary 06/11/20 09:53 Mycobacterial Smear - Preliminary Body Fluids - Pleura A&P Assessment and plan (1) ASHD (arteriosclerotic heart disease): Appear to be stable continue current regimen Status: Acute (2) Heart failure with reduced ejection fraction: Patient is reasonably well compensated continue p.o. Lasix Status: Acute (3) S/P CABG (coronary artery bypass graft): Stable. Continue current regimen Status: Acute (4) Hypotension: Well-controlled. Status: Acute Qualifiers: Hypotension type: unspecified hypotension type Qualified Code(s): I95.9 - Hypotension, unspecified (5) Atrial fibrillation: Not well controlled I will increase metoprolol to 50 mg twice a day Status: Acute Qualifiers: Atrial fibrillation type: persistent (not longstanding) Qualified Code(s): I48.19 - Other persistent atrial fibrillation Additional A&P Information s/p Bio MVR : well seated, no significant regurgitation noted s/p tricuspid valve ring annuloplasty: residual moderate MR h/o PVC's Anemia CKD Emphysema h/o lung nodule Smoker Thank you for allowing me to participate in patient's care. 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
[2020-06-13] MEDS: atorvastatin 40 mg Tablet 20 MG PO (17:51)
[2020-06-13] MEDS: metoprolol tartrate 50 mg Tablet PO (20:11)
[2020-06-14] VITALS (9 sets, daily range): BP systolic 86–122; BP diastolic 68–85; PULSE 87–120; RESP 17–24; TEMP 35.8–36.6; O2SAT 94–98
[2020-06-14 03:58] LABS: Basophils % 0.3 %; Hematocrit 29.8 % (42.0-52.0); Hemoglobin 9.5 g/dL (11.7-16.6); Lymphocytes # 1.1 10^3/uL (0.8-4.8); Lymphocytes % 14.4 %; Mean Corpuscular HGB Conc 31.9 g/dL (30.0-36.0); Mean Corpuscular Hemoglobin 28.3 pg (28.0-34.0); Mean Corpuscular Volume 88.7 fL (80-94); Mean Platelet Volume 11.1 fL (7.4-10.4); Monocytes # 0.7 10^3/uL (0.2-0.9); Monocytes % 8.8 %; Neutrophils # 6.04 10^3/uL (1.8-7.7); Nucleated Red Blood Cells % 0 %; Platelet Count 202 10^3/cmm (130-400); Red Blood Count 3.36 10^6/uL (4.1-5.3); Red Cell Distribution Width 14.9 % (12.1-15.1); White Blood Count 7.9 10^3/uL (4.0-10.0)
[2020-06-14 04:19] LABS: Alanine Aminotransferase 17 U/L (0-41); Albumin Level 3.2 g/dL (3.5-5.2); Alkaline Phosphatase 131 IU/L (40-130); Aspartate Amino Transferase 19 U/L (0-40); Blood Urea Nitrogen 32 mg/dL (8-23); Calcium 8.6 mg/dL (8.5-10.5); Carbon Dioxide 31 mmol/L (22-29); Chloride 96 mmol/L (98-107); Glomerular Filtration Rate 38.3 mL/min (90-130); Glucose 106 mg/dL (65-115); Osmolality Calculated 291 mOsm/kg (285-295); Sodium 137 mmol/L (136-145); Total Bilirubin 0.4 mg/dL (0.15-1.2)
[2020-06-14] MEDS: FUROsemide 10 mg/mL SDV 4mL 40 MG IVP (06:36)
[2020-06-14] MEDS: pantoprazole DR 40 mg Tablet PO (09:02)
[2020-06-14] MEDS: aspirin 81 mg EC Tablet PO (09:02)
[2020-06-14] MEDS: amiodarone 200 mg Tablet 400 MG PO ×2 (09:02→15:04)
[2020-06-14] MEDS: metoprolol tartrate 50 mg Tablet PO (09:12)
--- NOTE | 2020-06-14 09:16 | PC.NURSE ---
Pt continues to complain of left arm pain and itching where IV had infiltrated. Patients arm has more redness today and is hot to the touch. MD aware and notified. Will continue to monitor.
[2020-06-14] MEDS: heparin 5,000 unit/mL INJ 1 mL 5000 UNIT SUBCUT (10:15)
--- NOTE | 2020-06-14 11:27 | USR_ITS ---
PROCEDURE INFORMATION: Exam: US Duplex Upper Extremity Veins Exam date and time: 06/14/2020 12:34 PM Age: 64 years old Clinical indication: Swelling (edema) of limb; Upper extremity, bilateral; Additional info: Edema / erythema bilateral ue l>r TECHNIQUE: Imaging protocol: Real-time Duplex ultrasound of the Upper Extremities with 2-D jordan scale, color Doppler flow and spectral waveform analysis with image documentation. Complete exam focused on the bilateral upper extremity veins. COMPARISON: No relevant prior studies available. FINDINGS: Right deep veins: Unremarkable. Axillary and brachial veins are patent throughout without thrombus. Normal Doppler waveforms. Normal compressibility and/or augmentation response. Visualized internal jugular and subclavian veins are patent. Right superficial veins: There is thrombus in the basilic vein at the level the distal arm. There is thrombus in the antecubital and cephalic veins in the mid to distal arm. Left deep veins: Unremarkable. Axillary and brachial veins are patent throughout without thrombus. Normal Doppler waveforms. Normal compressibility and/or augmentation response. Visualized internal jugular and subclavian veins are patent. Left superficial veins: There is thrombus in the basilic vein at the mid to distal arm level. There is thrombus in the antecubital in cephalic veins in the superior upper arm to distal forearm. Soft tissues: There is an IV site in the mid right arm with limited assessment in this region. US/[place] [id number] IMPRESSION: Bilateral superficial thrombosis as described above. No evidence of deep vein thrombosis.
[2020-06-14] MEDS: cephALEXin 500 mg Capsule PO (12:55)
--- NOTE | 2020-06-14 13:11 | P.PN_ITS ---
Subjective Subjective: Interval history: Today feeling much better would like to go home heart rate stays around in between 90s to 1 teens upon movement. Medications: Reviewed: Yes Vitals/I&O/Wt Last Vital Signs Temp 96.4 F L 06/14/20 10:36 Pulse 109 H 06/14/20 10:36 Resp 24 H 06/14/20 10:36 BP 108/71 06/14/20 10:36 Pulse Ox 95 06/14/20 10:36 06/13/20 06/14/20 06/14/20 22:59 06:59 14:59 Intake Total 240 / 716 240 / 240 Output Total 650 / 650 600 / 1250 300 / 300 Balance -410 / 66 -600 / -534 -60 / -60 Physical Exam Narrative: EXAM NARRATIVE: GENERAL: Patient is alert, awake and oriented x3. Lying in the bed comfortably NECK: No jugular vein distension. Left upper arm mild cellulitis HEENT: No cyanosis. No icterus. No pallor. HEART: Irregularly irregular S1 and S2. No murmur, rub or gallop. LUNGS: Patient has now good air entry on the right side. Left side still re duced ABDOMEN: Soft, nontender and nondistended. Positive bowel sounds. No guarding, rebound or tenderness. CENTRAL NERVOUS SYSTEM: Grossly nonfocal. EXTREMITIES: Lower extremities without edema bilaterally. Data : 06/14/20 03:12 06/14/20 03:12 Micro: Microbiology 06/11/20 09:53 Gram Stain - Final Pleural Fluid Body Fluid Culture - Preliminary 06/11/20 09:53 Mycobacterial Smear - Preliminary Body Fluids - Pleura A&P Assessment and plan (1) ASHD (arteriosclerotic heart disease): Stable from a cardiovascular perspective patient has been started on combination of medicines. Including beta-alejandro aspirin and statin diuretics. Patient has ischemic and mixed dilated cardiac myopathy he is status post mitral valve replacement and redo CABG. He has severe LV dysfunction with ejection fraction around 20%. His medicine has been optimized. We will suggest LifeVest for 90 days after that we will repeat LV function if stays below 35 will advise ICD then. Status: Acute (2) Heart failure with reduced ejection fraction: Patient is well compensated. He has severely depressed LV function is post CABG post valve replacement. Status: Acute (3) S/P CABG (coronary artery bypass graft): Stable. Continue current regimen Status: Acute (4) Hypotension: Improved Status: Acute Qualifiers: Hypotension type: unspecified hypotension type Qualified Code(s): I95.9 - Hypotension, unspecified (5) Atrial fibrillation: Reasonably well-controlled continue amiodarone 400 3 times daily metoprolol 50 twice daily discontinue mexiletine discontinue digoxin. Patient is very high risk for stroke CHADVASc2 >3, HASBLED score>2, we therefore recommend starting patient on apixaban. Continue aspirin. Add PPI Status: Acute Qualifiers: Atrial fibrillation type: persistent (not longstanding) Qualified Code(s): I48.19 - Other persistent atrial fibrillation Additional A&P Information s/p Bio MVR : well seated, no significant regurgitation noted s/p tricuspid valve ring annuloplasty: residual moderate MR h/o PVC's Anemia CKD Emphysema h/o lung nodule Smoker Thank you for allowing me to participate in patient's care. Please feel free to call with questions or concerns Attestations Medical Necessity Statement*: Patient can be discharged home with instruction to receive a LifeVest at home. Patient refused to stay in the hospital for LifeVest. He understand risk of arrhythmia and sudden cardiac . 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
--- NOTE | 2020-06-14 14:42 | PM.DCS ---
Discharge Providers Date of Admission: 06/08/20 09:35 Date of Discharge: June 14, 2020 Attending Provider at Admission: Dakotah Salas MD Attending Provider at Discharge: Eloisa Waldrop Primary Care Provider: Thee Sage Diagnoses at Discharge Discharge Diagnosis (1) ASHD (arteriosclerotic heart disease): Status: Acute (2) Heart failure with reduced ejection fraction: Status: Acute (3) S/P CABG (coronary artery bypass graft): Status: Acute (4) Hypotension: Status: Acute Qualifiers: Hypotension type: unspecified hypotension type Qualified Code(s): I95.9 - Hypotension, unspecified (5) Atrial fibrillation: Status: Acute Qualifiers: Atrial fibrillation type: persistent (not longstanding) Qualified Code(s): I48.19 - Other persistent atrial fibrillation Reason for Visit Reason for Visit: SOB Hospital Course Hospital Course 64-year-old male with past medical history significant for tobacco, chronic bronchitis, abuse, chronic kidney disease, hypertension, hyperlipidemia, coronary artery disease status post CABG, chronic systolic heart failure with a last known EF of 36%, with recent mitral valve replacement who presented to the hospital with shortness of breath. In addition to this patient was also noting small amount of bright red blood per rectum. Upon admission to the hospital cardiology was consulted. Initially patient's anticoagulation was held. Did not have any episodes of bright red blood per rectum throughout hospitalization. Hemoglobin remained stable. He was initially started on DVT prophylaxis dose however at the time of discharge he was transition to full does Eliquis. Benefit outweighed risk. In addition to this patient had multiple adjustments of his antiarrhythmic and rate control medications. On 06/14/2012 patient was cleared for discharge from Cardiology standpoint. Prior to discharge however he was noted to have edema of left upper extremity. Venous ultrasound showed revealed extensive thrombophlebitis. In addition to anticoagulation he was also started on Keflex for short 5 day course of 500 mg p.o. q.i.d.. Was discharged in stable condition. Advised to follow-up with primary care physician. Outpatient blood work was ordered. Outpatient cardiology follow-up was also arranged. Of note patient was not prescribed Que or Arb due to renal insufficiency. Physical Exam Narrative: EXAM NARRATIVE: General exam Alert awake oriented no apparent distress HEENT grossly unremarkable CVS irregularly irregular rhythm Chest- nonlabored respirations Abdomen-soft nontender nondistended Extremities- bilateral upper extremity edema with left over right Discharge Data Data Completed and Pending: Completed Studies During Hospitalization Category Date Time Status CT chest wo con 7 1250 Routine Cat Scan 06/09/20 08:26 Completed XR chest 1V donaldo ble [id number] Routine Exams 06/09/20 07:20 Completed XR chest 1V donaldo ble [id number] Routine Exams 06/11/20 10:08 Completed XR chest 1V donaldo ble [id number] Routine Exams 06/13/20 07:00 Completed XR chest 1V donaldo ble [id number] Stat Exams 06/11/20 09:33 Completed XR chest 1V donaldo ble [id number] Urgent Exams 06/08/20 04:47 [place] [address]/25 Urgent Ultrasound 06/08/20 06:51 [place] [id number] Routin e Ultrasound 06/09/20 07:20 [place] [id number] Routin e Ultrasound 06/14/20 11:27 Completed US thoracentesis [id number] Routine Ultrasound 06/11/20 08:00 Completed Pending at discharge Category Date Time Status Body Fluid Cultur e & GS Routine Lab 06/10/20 13:50 Results Mycobacteria, Cul ture w/Fluor Routi ne Lab 06/10/20 13:50 Results Cytology [PTH] Ro utine Pth 06/10/20 13:50 Received Labs from last 24 hours 06/14/20 06/14/20 03:12 03:12 WBC 7.9 RBC 3.36 L Hgb 9.5 L Hct 29.8 L MCV 88.7 MCH 28.3 MCHC 31.9 RDW 14.9 Plt Count 202 MPV 11.1 H Neut % (Auto) 76.0 Lymph % (Auto) 14.4 Ada % (Auto) 8.8 Eos % (Auto) 0.0 Baso % (Auto) 0.3 Neut # (Auto) 6.04 Lymph # (Auto) 1.1 Ada # (Auto) 0.7 Eos # (Auto) 0.0 Baso # (Auto) 0.0 Nucleated RBC % (a uto) 0 Nucleated RBCs # 0.0 Sodium 137 Potassium 4.0 Chloride 96 L Carbon Dioxide 31 H Anion Gap 14.0 BUN 32 H Creatinine 1.8 H GFR Calculation 38.3 L Glucose 106 Calculated Osmolal ity 291 Calcium 8.6 Total Bilirubin 0.4 AST 19 ALT 17 Alkaline Phosphata se 131 H Total Protein 8.1 D Albumin 3.2 L Globulin 4.9 H Vitals: Last Vital Signs Temp 96.7 F L 06/14/20 14:29 Pulse 108 H 06/14/20 14:29 Resp 17 06/14/20 14:29 BP 122/69 06/14/20 14:29 Pulse Ox 94 06/14/20 14:29 Discharge Plan Discharge Patient Disposition: Home Condition: Stable Prescriptions: New Pacerone 200 mg Tablet 400 mg PO TID Qty: 30 RF: 4 cephalexin 500 mg Capsule 500 mg PO QID Qty: 30 RF: 0 pantoprazole 40 mg Tablet,Delayed Release (Dr/Ec) 40 mg PO BID Qty: 60 RF: 2 apixaban 5 mg tablet 5 mg PO BID Qty: 60 RF: 5 Continued metoprolol succinate 25 mg tablet extended release 24 hr 50 mg PO BID@,18 RF: 0 aspirin [Adult Aspirin Regimen] 81 mg tablet,delayed release (DR/EC) 162 mg PO DAILY@09 RF: 0 tramadol 50 mg tablet 100 mg PO Q6H PRN (Reason: Pain) RF: 0 alprazolam 0.25 mg tablet 0.25 mg PO BID PRN (Reason: Anxiety) RF: 0 temazepam 30 mg capsule 30 mg PO BEDTIME RF: 0 docusate sodium 100 mg Capsule 100 mg PO DAILY@08 RF: 0 albuterol sulfate 90 mcg/actuation HFA aerosol inhaler 2 puff INHALATION Q4H PRN (Reason: Shortness Of Breath) RF: 0 bisacodyl 5 mg Tablet 5 mg PO DAILY PRN (Reason: Constipation) RF: 0 Changed Lasix 40 mg tablet 40 mg PO BID PRN (Reason: Edema) Qty: 60 RF: 4 isosorbide mononitrate 30 mg tablet extended release 24 hr 15 mg PO BID Qty: 180 RF: 3 potassium chloride 10 mEq tablet extended release 20 meq PO DAILY PRN (Reason: w/lasix) Qty: 0 RF: 0 simvastatin 40 mg tablet 10 mg PO DAILY@18 Qty: 0 RF: 0 Discontinued clopidogrel [Plavix] 75 mg tablet 75 mg PO DAILY@09 RF: 0 mexiletine 150 mg capsule 150 mg PO Q8H RF: 0 Discharge Orders: Discharge Order (Routine); Ordered 06/14/20 Ordered By: Eloisa Waldrop Other Ambulatory Orders: DME: Life Vest (Order) Location: None Selected Ordered By: Fadumo Dupree Referrals: Sade Wadsworth FNP [Nurse Practitioner] - ([facility] will contact you to schedule an follow-up appointment with Sade Wadsworth and Dr. Dupree in 7 days. If you haven't heard from them by Monday afternoon. PLEASE CALL ) Thee Sage MD [Primary Care Provider] - ([facility] will contact you to schedule an follow-up appointment in 4 to 7 days. If you haven't heard from them by Monday afternoon. Please call ) Discharge Diet: Cardiac, Low Salt and Low Cholesterol Discharge Activity: Increase activity as tolerated Patient Instructions: Anticoagulation Therapy, Cephalexin (By mouth), Amiodarone (By mouth), Pantoprazole (By mouth), Apixaban (By mouth), Heart Failure (DC), Atrial Fibrillation (DC), How to Stop Smoking (DC), Heart Healthy Diet (DC), CHF Stoplight Activity Restrictions/Additional Instructions: Patient was given heart failure education. No more than 2 g of salt per day. Please keep log of blood pressure pulse and daily weight. If you gain more than 3 pounds in 2 consecutive days please take extra furosemide that is your water pill and extra potassium chloride tablet. If you keep on gaining weight please call Dr. Gonzalez's office. Please schedule patient with Sade Wadsworth nurse practitioner in the afternoon in 7 days with the instruction that Dr. Dupree will also see the patient with Sade. Advised patient if he sees any blood in the stool or dark-colored stool or urine he should call Dr. Gonzalez's office and stop Apixaban (Eliquis) that is a blood thinner. Patient will be scheduled for LifeVest which will be fit at home since he refused to stay in the hospital for it. Patient understand the risk of arrhythmia and sudden cardiac . Discharge Attestations Time Spent in Discharge Care*: greater than 30 min Quality Metrics Clinical Quality Measures During this hospital stay, did patient experience: None Coding Level of Care Code Acute Licensed Occupational Therapist for g Fwd Diagnoses ASHD (arteriosclerotic heart disease) I25.10 Heart failure with reduced ejection fraction I50.20 S/P CABG (coronary artery bypass graft) Z95.1 Hypotension I95.9 Hypotension type: unspecified hypotension type Atrial fibrillation I48.19 Atrial fibrillation type: persistent (not longstanding)
--- NOTE | 2020-06-14 16:00 | PC.NURSE ---
Faxed dispensed meds to inpt pharmacy Since pt pharmacy is close today and will pick them up tomorrow. Pt was given med supplies for tonight and in the morning. 2 tabs of eliquis 5 mg BID order, keflex 2 caps QID, protonix 40 mg 1 tab BID order, Amiodarone 2 tabs of 200 mg/tab 400 mg TID.
--- NOTE | 2020-06-14 16:11 | PC.NURSE ---
Discharge to home,discharge medications Dispense new discharge meds prescribed for pt to take home tonight since pt pharmacy is close today and they will crab picker the meds in the morning at [facility]. Educated pt and significant other Allison regarding pt's new discharge meds actions, dosing, timing and possible side effects, the stopped meds and continued home meds. Informed Pt and the importance of taking his meds. Instructed pt's to check pt's BP and weight at home and monitor for any low BP and weight gain as discussed today with his doctor, to monitor for any signs of bleeding when on anticoagulation. Educated pt on chf stoplight and anticoagulant therapy. Instructed pt and Allison to follow-up with pt's doctors as discussed and scheduled. Pt and Allison are aware of life vest fitting as an outpatient. Informed pt and sign Eliquis coupons provided to pt. Discharge packet and educational materials provided to pt. Asked pt and significant other if they understood and if they have any other questions. Significant other verbalizes understanding and teaches back on the discharge meds. Ushered via wheelchair.
[2020-06-15 19:18] LABS: Globulin 2.9 g/dL (1.3-4.6); Total Protein 6.1 g/dL (6.6-8.7)
== END 2020-06-14 16:47 | disposition home or self-care (01) | DRG 308 ==
LOC: ER 09:07 → ICU 11:11 → CSU 06-12 16:25
PROVIDERS: Family Medicine; Admitting Provider Internal Medicine; Emergency Provider Emergency Medicine; PCP Family Medicine; Visit Provider Hospitalist
DX: I48.19 Other persistent atrial fibrillation (principal); J96.01 Acute respiratory failure with hypoxia; I50.23 Acute on chronic systolic (congestive) heart failure; K92.2 Gastrointestinal hemorrhage, unspecified; I13.0 Hypertensive heart and chronic kidney disease with heart failure and stage 1 through stage 4 chronic kidney disease, or unspecified chronic kidney disease; I07.1 Rheumatic tricuspid insufficiency; Z95.1 Presence of aortocoronary bypass graft; I42.0 Dilated cardiomyopathy; I95.9 Hypotension, unspecified; E78.5 Hyperlipidemia, unspecified; Z95.2 Presence of prosthetic heart valve; I25.10 Atherosclerotic heart disease of native coronary artery without angina pectoris; N18.9 Chronic kidney disease, unspecified; Z79.82 Long term (current) use of aspirin; Z79.02 Long term (current) use of antithrombotics/antiplatelets; F17.210 Nicotine dependence, cigarettes, uncomplicated
CPT/HCPCS: 12345; 32555; 36415; 36416; 36569; 36592; 36600; 71045; 71250; 80053; 80162; 80500; 81001; 82042; 82150; 82570; 82805; 82945; 82962; 83605; 83615; 83735; 83880; 83986; 84145; 84157; 84443; 84478; 84484; 85014; 85018; 85025; 85610; 86850; 86900; 87015; 87070; 87075; 87116; 87205; 87206; 87801; 88112; 88305; 89050; 93005; 93308; 93325; 93970; 94660; 96372; 97110; 97161; 99283; C9113; J0282; J1160; J1250; J1644; J1940; J2405; J3490; J7040; J7060

== ENCOUNTER 2020-06-22 15:30 | Inpatient (IN) | payer MEDICARE, SELFPAY ==
[2020-06-22] VITALS (7 sets, daily range): BP systolic 97–142; BP diastolic 71–77; PULSE 77–122; RESP 16–19; TEMP 36.4; O2SAT 93–97; BMI 34.0
--- NOTE | 2020-06-22 16:33 | XRR_ITS ---
PROCEDURE INFORMATION: Exam: XR Chest, 1 View Exam date and time: 06/22/2020 5:13 PM Age: 64 years old Clinical indication: Shortness of breath; Chest pain; Type not specified; Prior surgery; Surgery type: Bypass, back; Additional info: Cp TECHNIQUE: Imaging protocol: XR of the chest Views: 1 view. COMPARISON: CR XR chest 1V portable [id number] 06/13/2020 5:43 AM FINDINGS: Lungs: See Pleural spaces finding. Pleural spaces: There is increased interstitial markings. Interval increase in size of small bilateral pleural effusions with adjacent atelectasis. The left pleural effusion appears loculated. Pneumonia should be excluded clinically. No pneumothorax. Heart/Mediastinum: Stable cardiomediastinal silhouette. Bones/joints: Median sternotomy changes seen. XR/XR chest 1V portable [id number] IMPRESSION: Increased interstitial markings and increased size of bilateral pleural effusions, suggestive of pulmonary edema. Pneumonia should be excluded clinically.
--- NOTE | 2020-06-22 16:33 | ECG_ITS ---
[facility] Test Date: 2020-06-22 Pat Name: Rikki Barron Department: Room: Gender: Male Supervisor Tunnel Heading: : 1955 Requested By: Thee Menon Order Number: [id number] Davidson MD: Kartik Gardner M.D. Measurements Intervals [place] Rate: 108 P: DC: QRS: 5 QRSD: 114 T: 16 QT: 342 QTc: 460 Interpretive Statements Atrial fibrillation with rapid ventricular response MODERATE INTRAVENTRICULAR CONDUCTION DELAY [110+ ms QRS DURATION] NONSPECIFIC ST & T-WAVE ABNORMALITY Compared to ECG 06/08/2020 10:54:36 Intraventricular conduction delay now present T-wave abnormality still present Electronically Signed On 06-22-2020 18:51:02 QUALITY ASSURANCE QA LAB ANALYST by Kartik Gardner M.D. [email or web address] [email or web address] [id number]
--- NOTE | 2020-06-22 17:18 | ECG_ITS ---
[facility] Test Date: 2020-06-22 Pat Name: Rikki Barron Department: Room: Gender: Male Dead Mail Checker: ELSIE TOROB: 1955 Requested By: Moiz Mcintyre Order Number: [id number] Lety MD: Kartik Gardner M.D. Measurements Intervals [place] Rate: 122 P: LA: QRS: -11 QRSD: 108 T: 0 QT: 175 QTc: 249 Interpretive Statements Atrial fibrillation with rapid ventricular response Nonspecific ST-T wave changes Compared to ECG 06/08/2020 10:54:36 T-wave abnormality no longer present Electronically Signed On 06-22-2020 18:51:49 BAKING ASSISTANT by Kartik Gardner M.D. [id number]
[2020-06-22 18:08] LABS: ABG PCO2 30.4 mmHg (35-45); ABG PH Result 7.52 (7.35-7.45); Arterial Blood Gas Hematocrit 31.9 % (42-52); Base Excess ABG 2.4 mmol/L (-2.0-2.0); Blood Gas Allen Test Pos; Blood Gas Operator Identificat MONRO; Blood Gas Sample Site Brachial, right; Blood Gas Sample Type Arterial; HCO3 ABG 24.9 mmol/L (22-26); HGB O2 Sat 94.5 % (95-100); Methemoglobin 0.7 % (0.4-1.5); Oxygen Device NC; PO2 ABG 74.6 mmHg (80.0-100.0); Total Hemoglobin 10.4 g/dL (14-18)
--- NOTE | 2020-06-22 18:17 | PC.NURSE ---
Read and agree with assessment
--- NOTE | 2020-06-22 18:26 | W.ED.CHESTPA ---
HPI - Chest Pain General: Chief Complaint: Chest Pain Stated Complaint: SOB/chest pain/post op Time Seen by Provider: 06/22/20 17:19 History of Present Illness: HPI narrative: The patient is a 64-year-old male with past medical history three-vessel CABG on 05/29/2020 in [place]. He is also get a history of CHF, atrial fibrillation, mitral valve regurgitation, pulmonary hypertension. He wears oxygen 2 L daily. He comes to the ER complaining of shortness of breath and chest heaviness. He was admitted recently and had his right lung tapped. He was visiting Dr. Suarez today who told him to come to the ER for evaluation. Pertinent past history: coronary artery disease, prior [place] and CABG Associated symptoms: Reports dyspnea; Deny abdominal pain or palpitations Review of Systems General: Reports: 10 or more systems reviewed and unremarkable except in HPI and below Const: Denies: fatigue Eyes: Denies: change in vision, blurry vision or eye redness ENMT: Denies: throat pain, swelling of lips/tongue, ear or mastoid pain or nasal congestion Card: Reports: chest pain (when the oxygen is turned off. None in ED.); Denies: palpitations, irregular heart rhythm, edema, dyspnea on exertion or orthopnea Resp: Reports: dyspnea; Denies: productive cough or non-productive cough GI: Denies: abdominal pain, diarrhea or GI cramping : Denies: flank pain, urinary frequency or urinary urgency Musc: Denies: neck pain, back pain, extremity pain, joint pain, joint redness, limited range of motion or muscle weakness Skin/Breast: Denies: rash, pruritus, erythema, skin pain or skin tenderness Neuro: Denies: headache(s), numbness in extremities, weakness in extremities, sensory changes, difficulty walking, dizziness, confusion or Slurred speech present Psych: Denies: anxiety or depression Endo: Denies: polyuria All/Imm: Denies: urticaria, throat swelling or tongue swelling PFSH ED PFSH: Medical History ASHD (arteriosclerotic heart disease) Atrial fibrillation CAD (coronary artery disease) Worsening of shortness of breath along with chest pressure in the patient with history of extensive coronary disease and bypass surgery Chronic headaches Chronic kidney disease Chronic pain Emphysema of lung Irritation around percutaneous endoscopic gastrostomy (PEG) tube site LV dysfunction Mitral valve regurgitation Pulmonary hypertension Pulmonary nodule Shortness of breath Systolic heart failure Tricuspid valve regurgitation Surgical History Previous back surgery S/P CABG (coronary artery bypass graft) S/P insertion of intrathecal pump S/P wrist surgery Family History Other Heart disease Stroke Social History Smoking and tobacco status: current every day smoker cigarettes Packs smoked per day: 1.5 Years cigarettes smoked: 40 Quit status (tobacco): has tried quititng Alcohol intake: never Lives independently: Yes Household members: spouse Marital status: Current occupational status: disabled History of recent travel: No Current gender identity: Male Physical Exam Narrative: EXAM NARRATIVE: on 2L O2 via nasal canula Const: COMMON NORMALS: no acute distress, average body habitus, patient oriented x3, no limitations, healthy appearing, alert and well nourished GENERAL APPEARANCE: cooperative, comfortable, well kempt and well developed ORIENTATION/CONSCIOUSNESS: Yes awake, Yes oriented to person, Yes oriented to place and Yes oriented to time HENMT: COMMON NORMALS: normocephalic, external ears normal and Normal external nose present HEAD & SCALP: normal to inspection and normocephalic NOSE: Normal external nose present EXTERNAL EAR: Yes external ears normal MOUTH: Normal oral and palatal mucosa present THROAT: posterior oropharynx normal Eye: COMMON NORMALS: Equal, round and reactive pupils present and EOMs intact bilaterally GENERAL EYE: appearance normal, both eyes and all related structures PUPIL: Yes Equal, round and reactive pupils present Neck/C-Spine: COMMON NORMALS: full ROM, no lymphadenopathy, no meningeal signs and no JVD GENERAL: Yes normal visual inspection Lymph: LYMPHATIC: no lymphadenopathy noted Chest: COMMONS NORMALS: normal inspection of the chest and normal palpation of entire chest wall Resp: COMMON NORMALS: normal respiratory effort, No retractions, No use of accessory muscles, clear to auscultation bilaterally and percussion normal EFFORT & INSPECTION: Yes able to speak in complete sentences AUSCULTATION: clear to auscultation bilaterally PERCUSSION: percussion normal Cardio: COMMON NORMALS: no JVD, regular rate, regular rhythm, S1 normal heart sound present, S2 normal heart sound present and Peripheral pulses 2+ throughout RATE: regular rate RHYTHM: regular rhythm HEART SOUNDS: S1 normal heart sound present and S2 normal heart sound present PERIPHERAL PULSES: Peripheral pulses 2+ throughout GI: COMMON NORMALS: Normal to inspection, nondistended, normoactive bowel sounds present, Soft to palpation, non-tender and no masses INSPECTION: Yes normal to inspection PALPATION: Yes Soft to palpation : COMMON NORMALS: Yes no CVA tenderness BLADDER/KIDNEY EXAM: Yes no CVA tenderness Back/Pelvis: COMMON NORMALS: no CVA tenderness, thoracic and lumbar spine normal to inspection, no thoracic nor lumbar tenderness and thoraco-lumbar ROM normal Extremity: COMMON NORMALS: normal to inspection, full ROM, capillary refill normal, no joint enlargement and no pedal edema GENERAL: Yes normal exam except as noted Neuro: COMMON NORMALS: patient oriented x3, CN's II-XII intact bilaterally, moves all extremities, no focal motor deficits, no sensory deficits noted and gait normal SENSORIUM/ORIENTATION: Yes alert, Yes oriented to person, Yes oriented to place and Yes oriented to time MENINGEAL SIGNS: Yes no meningeal signs Psych: COMMON NORMALS: mental status grossly normal, Normal thought process present, cooperative, normal affect and speech normal APPEARANCE: Yes well kempt ATTITUDE: Yes calm SPEECH: Yes normal speech THOUGHT PROCESS: Normal thought process present Skin: COMMON NORMALS: no rashes or lesions noted GENERAL SKIN EXAM: no rashes or lesions noted Course Vital Signs: Vital signs: Vital Signs Temperature 97.6 F 06/22/20 15:49 Pulse Rate 122 H 06/22/20 20:03 Respiratory Rate 16 06/22/20 20:03 Blood Pressure 126/76 06/22/20 20:03 Pulse Oximetry 97 06/22/20 20:03 MDM - Chest Pain MDM Narrative: Medical decision making narrative: The patient comes in complaining of shortness of breath likely related to his severe CHF. He was told by Dr. Dupree to come in today for possibly draining his pleural effusion and putting a port in. He is stable in the ER he was given IV Lasix and admitted to Dr. Amado to the CSU. Lab Data: Labs: Lab Results 06/22/20 06/22/20 06/22/20 Range/Units 15:55 18:25 19:00 WBC 7.9 (4.0-10.0) 10^3/ uL RBC 3.55 L (4.1-5.3) 10^6/u L Hgb 9.6 L (11.7-16.6) g/dL Hct 31.6 L (42.0-52.0) % MCV 89.0 (80-94) fL MCH 27.0 L (28.0-34.0) pg MCHC 30.4 (30.0-36.0) g/dL RDW 15.9 H (12.1-15.1) % Plt Count 310 (130-400) 10^3/c mm MPV 10.2 (7.4-10.4) fL Neut % (Auto) 75.6 % Lymph % (Auto) 18.1 % [place] % (Auto) 5.6 % Eos % (Auto) 0.0 % Baso % (Auto) 0.1 % Neut # (Auto) 5.93 (1.8-7.7) 10^3/u L Lymph # (Auto) 1.4 (0.8-4.8) 10^3/u L [place] # (Auto) 0.4 (0.2-0.9) 10^3/u L Eos # (Auto) 0.0 (0.0-0.8) 10^3/u L Baso # (Auto) 0.0 (0.0-0.1) 10^3/u L Nucleated RBC % (a uto) 0 % Nucleated RBCs # 0.0 /100WBC D-Dimer (0-0.59) ug/mIFE U Specimen Type Arterial Sample Site Brachial, right ABG pH 7.52 H (7.35-7.45) ABG pCO2 30.4 L (35-45) mmHg ABG pO2 74.6 L (80.0-100.0) mmH g ABG HCO3 24.9 (22-26) mmol/L ABG Base Excess 2.4 H (-2.0-2.0) mmol/ L Alexx Test Pos Hematocrit 31.9 L (42-52) % Hgb O2 Saturation 94.5 L (95-100) % Carboxyhemoglobin 2.0 (0.4-20.1) %THgb Methemoglobin 0.7 (0.4-1.5) % Total Hemoglobin 10.4 L (14-18) g/dL O2 Delivery Device Nc O2 Liters/Min 4.0 % FiO2 36.0 % Customer Service And Sales Consultant ID [place] Sodium (136-145) mmol/L Potassium (3.5-5.1) mmol/L Chloride (98-107) mmol/L Carbon Dioxide (22-29) mmol/L Anion Gap (5-19) BUN (8-23) mg/dL Creatinine (0.7-1.2) mg/dL GFR Calculation (90-130) mL/min Glucose (65-115) mg/dL Calculated Osmolal ity (285-295) mOsm/k g Lactate (0.5-2.2) mmol/L Calcium (8.5-10.5) mg/dL Total Bilirubin (0.15-1.2) mg/dL AST (0-40) U/L ALT (0-41) U/L Alkaline Phosphata se (40-130) IU/L Troponin T Baselin e (0-15) ng/L NT-Pro-B Natriuret Pep (0-125) pg/mL Total Protein (6.6-8.7) g/dL Albumin (3.5-5.2) g/dL Globulin (1.3-4.6) g/dL TSH (0.27-4.20) uIU/ mL Urine Color Yellow (Yellow) Urine Appearance Clear (CLEAR) Urine pH 5 (5-7) Ur Specific Gravit y 1.015 (1.005-1.030) Urine Protein Neg (Negative) Urine Glucose (UA) Norm (Normal) Urine Ketones Negative (Negative) Urine Blood Neg (Negative) Urine Nitrate Negative (Negative) Urine Bilirubin Neg (Negative) Urine Urobilinogen Norm (Negative) mg/dL Ur Leukocyte Virgie ase Negative (Negative) 06/22/20 06/22/20 06/22/20 Range/Units 19:00 19:00 19:00 WBC (4.0-10.0) 10^3/ uL RBC (4.1-5.3) 10^6/u L Hgb (11.7-16.6) g/dL Hct (42.0-52.0) % MCV (80-94) fL MCH (28.0-34.0) pg MCHC (30.0-36.0) g/dL RDW (12.1-15.1) % Plt Count (130-400) 10^3/c mm MPV (7.4-10.4) fL Neut % (Auto) % Lymph % (Auto) % [place] % (Auto) % Eos % (Auto) % Baso % (Auto) % Neut # (Auto) (1.8-7.7) 10^3/u L Lymph # (Auto) (0.8-4.8) 10^3/u L [place] # (Auto) (0.2-0.9) 10^3/u L Eos # (Auto) (0.0-0.8) 10^3/u L Baso # (Auto) (0.0-0.1) 10^3/u L Nucleated RBC % (a uto) % Nucleated RBCs # /100WBC D-Dimer 3.75 H (0-0.59) ug/mIFE U Specimen Type Sample Site ABG pH (7.35-7.45) ABG pCO2 (35-45) mmHg ABG pO2 (80.0-100.0) mmH g ABG HCO3 (22-26) mmol/L ABG Base Excess (-2.0-2.0) mmol/ L Alexx Test Hematocrit (42-52) % Hgb O2 Saturation (95-100) % Carboxyhemoglobin (0.4-20.1) %THgb Methemoglobin (0.4-1.5) % Total Hemoglobin (14-18) g/dL O2 Delivery Device O2 Liters/Min % FiO2 % Customer Service And Sales Consultant ID Sodium 139 (136-145) mmol/L Potassium 4.7 (3.5-5.1) mmol/L Chloride 100 (98-107) mmol/L Carbon Dioxide 29 (22-29) mmol/L Anion Gap 14.7 (5-19) BUN 19 (8-23) mg/dL Creatinine 1.6 H (0.7-1.2) mg/dL GFR Calculation 43.9 L (90-130) mL/min Glucose 92 (65-115) mg/dL Calculated Osmolal ity 290 (285-295) mOsm/k g Lactate (0.5-2.2) mmol/L Calcium 9.1 (8.5-10.5) mg/dL Total Bilirubin 0.5 (0.15-1.2) mg/dL AST 18 (0-40) U/L ALT 34 (0-41) U/L Alkaline Phosphata se 168 H (40-130) IU/L Troponin T Baselin e 43 H (0-15) ng/L NT-Pro-B Natriuret Pep 21707 H (0-125) pg/mL Total Protein 6.5 L (6.6-8.7) g/dL Albumin 3.8 (3.5-5.2) g/dL Globulin 2.7 (1.3-4.6) g/dL TSH 7.93 H (0.27-4.20) uIU/ mL Urine Color (Yellow) Urine Appearance (CLEAR) Urine pH (5-7) Ur Specific Gravit y (1.005-1.030) Urine Protein (Negative) Urine Glucose (UA) (Normal) Urine Ketones (Negative) Urine Blood (Negative) Urine Nitrate (Negative) Urine Bilirubin (Negative) Urine Urobilinogen (Negative) mg/dL Ur Leukocyte Virgie ase (Negative) 06/22/20 Range/Units 19:00 WBC (4.0-10.0) 10^3/ uL RBC (4.1-5.3) 10^6/u L Hgb (11.7-16.6) g/dL Hct (42.0-52.0) % MCV (80-94) fL MCH (28.0-34.0) pg MCHC (30.0-36.0) g/dL RDW (12.1-15.1) % Plt Count (130-400) 10^3/c mm MPV (7.4-10.4) fL Neut % (Auto) % Lymph % (Auto) % [place] % (Auto) % Eos % (Auto) % Baso % (Auto) % Neut # (Auto) (1.8-7.7) 10^3/u L Lymph # (Auto) (0.8-4.8) 10^3/u L [place] # (Auto) (0.2-0.9) 10^3/u L Eos # (Auto) (0.0-0.8) 10^3/u L Baso # (Auto) (0.0-0.1) 10^3/u L Nucleated RBC % (a uto) % Nucleated RBCs # /100WBC D-Dimer (0-0.59) ug/mIFE U Specimen Type Sample Site ABG pH (7.35-7.45) ABG pCO2 (35-45) mmHg ABG pO2 (80.0-100.0) mmH g ABG HCO3 (22-26) mmol/L ABG Base Excess (-2.0-2.0) mmol/ L Alexx Test Hematocrit (42-52) % Hgb O2 Saturation (95-100) % Carboxyhemoglobin (0.4-20.1) %THgb Methemoglobin (0.4-1.5) % Total Hemoglobin (14-18) g/dL O2 Delivery Device O2 Liters/Min % FiO2 % Customer Service And Sales Consultant ID Sodium (136-145) mmol/L Potassium (3.5-5.1) mmol/L Chloride (98-107) mmol/L Carbon Dioxide (22-29) mmol/L Anion Gap (5-19) BUN (8-23) mg/dL Creatinine (0.7-1.2) mg/dL GFR Calculation (90-130) mL/min Glucose (65-115) mg/dL Calculated Osmolal ity (285-295) mOsm/k g Lactate 1.2 (0.5-2.2) mmol/L Calcium (8.5-10.5) mg/dL Total Bilirubin (0.15-1.2) mg/dL AST (0-40) U/L ALT (0-41) U/L Alkaline Phosphata se (40-130) IU/L Troponin T Baselin e (0-15) ng/L NT-Pro-B Natriuret Pep (0-125) pg/mL Total Protein (6.6-8.7) g/dL Albumin (3.5-5.2) g/dL Globulin (1.3-4.6) g/dL TSH (0.27-4.20) uIU/ mL Urine Color (Yellow) Urine Appearance (CLEAR) Urine pH (5-7) Ur Specific Gravit y (1.005-1.030) Urine Protein (Negative) Urine Glucose (UA) (Normal) Urine Ketones (Negative) Urine Blood (Negative) Urine Nitrate (Negative) Urine Bilirubin (Negative) Urine Urobilinogen (Negative) mg/dL Ur Leukocyte Virgie ase (Negative) Discharge Plan Discharge Admit Provider: Fadumo Amado Condition: Good Coding Level of Care Code ED It Solutions Architect for Chica Stout
[2020-06-22 18:48] LABS: Add Urine Microscopic? NO
[2020-06-22 18:51] LABS: Bilirubin Urine Neg (Negative); Blood Urine Neg (Negative); Glucose Urine UA Norm (Normal); Ketones Urine Negative (Negative); Leukocyte Esterase Urine Negative (Negative); Nitrate Urine Negative (Negative); Protein Urine Neg (Negative); Specific Gravity, Urine 1.015 (1.005-1.030); Urine Appearance Clear (CLEAR); Urine Color Yellow (Yellow); Urobilinogen Urine Norm (Negative); pH Urine 5 (5-7)
[2020-06-22 19:15] LABS: Basophils % 0.1 %; Hematocrit 31.6 % (42.0-52.0); Hemoglobin 9.6 g/dL (11.7-16.6); Lymphocytes # 1.4 10^3/uL (0.8-4.8); Lymphocytes % 18.1 %; Mean Corpuscular HGB Conc 30.4 g/dL (30.0-36.0); Mean Platelet Volume 10.2 fL (7.4-10.4); Monocytes # 0.4 10^3/uL (0.2-0.9); Monocytes % 5.6 %; Neutrophils # 5.93 10^3/uL (1.8-7.7); Neutrophils % 75.6 %; Nucleated Red Blood Cells % 0 %; Platelet Count 310 10^3/cmm (130-400); Red Blood Count 3.55 10^6/uL (4.1-5.3); Red Cell Distribution Width 15.9 % (12.1-15.1); White Blood Count 7.9 10^3/uL (4.0-10.0)
--- NOTE | 2020-06-22 19:18 | ECG_ITS ---
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
[2020-06-22 19:51] LABS: D Dimer 3.75 ug/mIFEU (0-0.59)
[2020-06-22 20:19] LABS: Lactate (Lactic Acid level) 1.2 mmol/L (0.5-2.2)
[2020-06-22 20:24] LABS: Troponin(5th) Baseline 43 ng/L (0-15)
[2020-06-22 20:32] LABS: Alanine Aminotransferase 34 U/L (0-41); Albumin Level 3.8 g/dL (3.5-5.2); Alkaline Phosphatase 168 IU/L (40-130); Anion Gap 14.7 (5-19); Aspartate Amino Transferase 18 U/L (0-40); Blood Urea Nitrogen 19 mg/dL (8-23); Calcium 9.1 mg/dL (8.5-10.5); Carbon Dioxide 29 mmol/L (22-29); Chloride 100 mmol/L (98-107); Globulin 2.7 g/dL (1.3-4.6); Glomerular Filtration Rate 43.9 mL/min (90-130); Glucose 92 mg/dL (65-115); NT Pro B Type Natriuretic Pept 12658 pg/mL (0-125); Osmolality Calculated 290 mOsm/kg (285-295); Potassium 4.7 mmol/L (3.5-5.1); Sodium 139 mmol/L (136-145); Thyroid Stimulating Hormone 7.93 uIU/mL (0.27-4.20); Total Bilirubin 0.5 mg/dL (0.15-1.2); Total Protein 6.5 g/dL (6.6-8.7)
--- NOTE | 2020-06-22 21:32 | P.HP_ITS ---
Providers/Chief Complaint Admitting Physician: Fadumo Amado MD Primary Care Provider: Thee Sage Chief Complaint: SOB/chest pain/post op History of Present Illness Rikki Barron is a 64 year old male who has history of ischemic cardiomyopathy EF 20% bioprosthetic mitral valve replacement, redo of CABG x3, was recently discharged from the hospital after management of atrial fibrillation RVR and heart failure exacerbation, he was discharged on Eliquis and Keflex for his leandro ous thrombophlebitis presents from cardiology clinic for worsening shortness of breath. Patient was discharged on 3 L of oxygen on last visit. Patient is stating that since his discharge he has been adjusting his Lasix dose according to his weight gain, but unfortunately Lasix does not seem to help diurese him well enough. He has been experiencing orthopnea PND, he increase his oxygen requirement from 3 L to 5 L and went to cardiology clinic today. There because of his worsening shortness of breath and tachypnea was requested to go to the ED for further evaluation. Patient denied chest pain fever, nausea, vomiting, diarrhea, he is endorsing compliance with his medications. Diagnostics in the ER revealed normal white count stable anemia high D-dimer 3.7, respiratory alkalosis with relative hypoxia BMP shows chronic kidney disease without acute worsening, BNP 12,000, TSH 7.9 I requested free T4 level, by the time I saw him patient was saturating well on 3 L nasal cannula was not complaining of orthopnea PND or chest pain. Patient felt better after getting IV Lasix 40 mg in the ER. Chest x-ray showing left sided effusion which seems to be loculated patient is not showing signs of sepsis, empyema less likely, right-sided pleural effusion is worsening, of note 600 mL pleural fluid was removed on last admission. Review of Systems Const: Reports: fatigue and malaise; Denies: fever(s), chills or body aches Eyes: Denies: change in vision ENMT: Denies: throat pain Card: Reports: swelling of feet/ankles, dyspnea on exertion and orthopnea; Denies: chest pain or pre-syncope Resp: Reports: dyspnea and non-productive cough GI: Denies: abdominal pain : Denies: flank pain Musc: Reports: muscle cramps; Denies: neck pain or limited range of motion Skin/Breast: Denies: rash Neuro: Denies: headache(s) Psych: Denies: anxiety Endo: Denies: polyuria [place]/Lymph: Denies: easy bruising All/Imm: Denies: urticaria Medications/Allergies Home Medications Medication Instructions Recorded Confirmed Last Taken Type aspirin 81 mg tablet,delayed 81 mg PO DAILY@09 tab 11/04/19 06/22/20 06/22/20 History release albuterol sulfate 2 puff INHALATION Q4H PRN 06/08/20 06/22/20 06/22/20 History alprazolam 0.25 mg PO BID PRN 06/08/20 06/22/20 Unknown History bisacodyl 5 mg PO DAILY PRN 06/08/20 06/22/20 Unknown History docusate sodium 100 mg PO DAILY@08 06/08/20 06/22/20 06/07/20 History temazepam 30 mg PO BEDTIME PRN 06/08/20 06/22/20 06/07/20 History tramadol 100 mg PO Q6H PRN 06/08/20 06/22/20 06/21/20 History furosemide [Lasix] 40 mg PO BID PRN #60 tab 06/14/20 06/22/20 06/22/20 Rx potassium chloride 10 mEq 20 meq PO DAILY PRN #60 tab 06/15/20 06/22/20 06/22/20 Rx tablet,extended release simvastatin 10 mg tablet 10 mg PO DAILY@18 #30 tab 06/15/20 06/22/20 06/21/20 Rx amiodarone [Pacerone] 400 mg PO TID@08,,06/22/20 06/22/20 06/22/20 History apixaban 5 mg PO BID@0800,199906/22/20 06/22/20 06/22/20 History cephalexin 500 mg PO QID@08,12,16,06/22/20 06/22/20 06/22/20 History isosorbide mononitrate 15 mg PO BID@0800,199906/22/20 06/22/20 06/22/20 History metoprolol succinate 50 mg PO BID@08,20 06/22/20 06/22/20 06/22/20 History pantoprazole 40 mg PO BID@0800,199906/22/20 06/22/20 06/22/20 History Allergies Allergy/AdvReac Type Severity Reaction Status Date / Time codeine Allergy Severe ADR-Agitate Verified 06/22/20 15:04 d morphine Allergy Severe ALGY-Difficulty Verified 06/22/20 15:04 Breathing acetaminophen [From Tylenol] AdvReac Severe ADR-Agitate Verified 06/22/20 15:04 d PFSH Acute PFSH: Medical History ASHD (arteriosclerotic heart disease) Atrial fibrillation CAD (coronary artery disease) Worsening of shortness of breath along with chest pressure in the patient with history of extensive coronary disease and bypass surgery Chronic headaches Chronic kidney disease Chronic pain Emphysema of lung Irritation around percutaneous endoscopic gastrostomy (PEG) tube site LV dysfunction Mitral valve regurgitation Pulmonary hypertension Pulmonary nodule Shortness of breath Systolic heart failure Tricuspid valve regurgitation Surgical History Previous back surgery S/P CABG (coronary artery bypass graft) S/P insertion of intrathecal pump S/P wrist surgery Family History Other Heart disease Stroke Social History Smoking and tobacco status: current every day smoker cigarettes Packs smoked per day: 1.5 Years cigarettes smoked: 40 Quit status (tobacco): has tried quititng Alcohol intake: never Lives independently: Yes Household members: spouse Marital status: Current occupational status: disabled History of recent travel: No Current gender identity: Male Vitals/I&O/Wt Last Vital Signs Temp 97.6 F 06/22/20 15:49 Pulse 122 H 06/22/20 20:03 Resp 16 06/22/20 20:03 BP 126/76 06/22/20 20:03 Pulse Ox 97 06/22/20 20:03 Weight last 48 hrs Weight 110.677 kg Physical Exam Narrative: EXAM NARRATIVE: elderly male who was sitting in semi- Rubalcava position on 3 to nasal cannula saturating well without any active chest pain orthopnea PND No cyanosis or gangrene noted No acute respiratory distress No conversational dyspnea Variable S1, S2 mild Systolic murmur appreciated, active signs of heart failure bilateral lower extremity edema 2+ No sign of cellulitis gangrene or ulcer of lower extremities Patient is awake alert oriented x3 GCS 15 no neurological deficit Bilateral breath sounds diminished at the bases right greater than left mild crackles Abdomen soft nontender bowel sounds present No joint swelling Appropriate mood and affect Data : 06/22/20 19:00 06/22/20 19:00 Other data: CABG 3 years back (single graft WALLACE to LAD, circumflex and RCA were diffusely diseased and not bypassed at [place]) with recent abnormal stress test, moderate to severe tricuspid valve regurgitation and severe mitral valve regurgitation. He also has history of PVC, chronic systolic congestive heart failure (LVEF=36%) and history of tobacco abuse. He underwent redo sternotomy and CABG x3 with great saphenous vein graft to diagonal, obtuse marginal and posterior descending. He also had mitral valve replacement with 33 mm epic porcine valve and tricuspid valve repair with 34 mm tri-Ad Lopez annuloplasty ring on 05/29/20. A&P Assessment and plan (1) Acute exacerbation of CHF (congestive heart failure): Acute on chronic congestive heart failure exacerbation reduce ejection fraction ischemic cardiomyopathy has mitral and tricuspid valve regurgitation, Current heart rate fluctuating between 1 10-1 20s atrial fibrillation with RVR I do believe his tachyarrhythmia is contributing towards worsening of his underlying cardiomyopathy I would continue amiodarone metoprolol succinate chronic anticoagulation with Eliquis and use Bumex instead of Lasix Chest x-ray showing recurrence of right-sided pleural effusion, I would like to do trial of Bumex first before requesting thoracentesis however on previous admission 600 mL fluid was removed, that was transudative No active chest pain, no ischemic or infarctive changes on EKG, troponin with negative delta High D-dimer noticed Previous venous Doppler did not show DVT however revealed superficial thrombophlebitis he has been anticoagulated since then Considering creatinine of 1.6 I would be reluctant to use CTA chest to rule out PE, Status: Acute Additional A&P Information Coronary artery disease status post CABG with redo, no active chest pain no signs of acute exacerbation no MN or ACS A. fib with RVR, heart rate fluctuating between 1 10-1 20s continue chronic anticoagulation with Eliquis, metoprolol succinate amiodarone, Abnormal TSH: We will request free T4 Full code Cardiac diet DVT prophylaxis not needed Attestations Medical Necessity Statement*: Anticipating discharge in less than 48 hours overnight diuresis needed for CHF exacerbation and rate control for A. fib RVR Time Spent in Patient Care: (>than 50% of time spent in counselling and/or direct pt care on unit) . 50mins Coding Level of Care Code Acute Roll Operator for Chg Fwd Diagnoses Acute exacerbation of CHF (congestive heart failure) I50.9
[2020-06-22] MEDS: FUROsemide 10 mg/mL SDV 4mL 40 MG IVP (21:44)
[2020-06-22 22:53] LABS: Troponin 5 2HR 40.72 ng/L (0-15)
[2020-06-22 22:54] LABS: Troponin 5 2HR Delta -2.28 ABS# (0-10)
[2020-06-22] MEDS: amiodarone 200 mg Tablet 400 MG PO (23:24)
--- NOTE | 2020-06-22 23:34 | PC.NURSE ---
PT ARRIVED TO ROOM 105. PT DENIES PAIN AT THIS TIME. PT ORIENTATED TO ROOM. PT STATES THAT HE JUST LEFT HERE SO HE IS FAMILIAR. VS WNL. WILL CONTINUE TO MONITOR.
[2020-06-22 23:40] LABS: Free T4 Free Thyroxine 1.35 ng/dL (0.82-1.77)
[2020-06-23] VITALS (12 sets, daily range): BP systolic 91–142; BP diastolic 56–77; PULSE 99–127; RESP 14–20; TEMP 36.4–36.8; O2SAT 93–943
[2020-06-23 01:00] LABS: Basophils % 0.3 %; Hemoglobin 9.5 g/dL (11.7-16.6); Lymphocytes # 1.4 10^3/uL (0.8-4.8); Lymphocytes % 19.7 %; Mean Corpuscular HGB Conc 30.6 g/dL (30.0-36.0); Mean Corpuscular Hemoglobin 27.3 pg (28.0-34.0); Mean Corpuscular Volume 89.1 fL (80-94); Mean Platelet Volume 10.8 fL (7.4-10.4); Monocytes # 0.4 10^3/uL (0.2-0.9); Monocytes % 6.2 %; Neutrophils # 5.09 10^3/uL (1.8-7.7); Neutrophils % 73.4 %; Nucleated Red Blood Cells % 0 %; Platelet Count 294 10^3/cmm (130-400); Red Blood Count 3.48 10^6/uL (4.1-5.3); Red Cell Distribution Width 16.1 % (12.1-15.1); White Blood Count 6.9 10^3/uL (4.0-10.0)
[2020-06-23 01:03] LABS: Anion Gap 14.1 (5-19); Blood Urea Nitrogen 19 mg/dL (8-23); Carbon Dioxide 29 mmol/L (22-29); Chloride 98 mmol/L (98-107); Glomerular Filtration Rate 51.2 mL/min (90-130); Glucose 90 mg/dL (65-115); Osmolality Calculated 286 mOsm/kg (285-295); Potassium 4.1 mmol/L (3.5-5.1); Sodium 137 mmol/L (136-145)
[2020-06-23 01:04] LABS: Troponin 5 6HR 45.95 ng/L (0-15)
--- NOTE | 2020-06-23 05:28 | PC.NURSE ---
PT HAD AN UNEVENTFUL NIGHT. PT DENIES PAIN. WILL CONTINUE TO MONITOR.
[2020-06-23] MEDS: bumetanide 1 mg Tablet 2 MG PO (08:41)
[2020-06-23] MEDS: apixaban 5 mg Tablet PO ×2 (08:41→20:51)
[2020-06-23] MEDS: aspirin 81 mg EC Tablet 162 MG PO (08:41)
[2020-06-23] MEDS: isosorbide mononitrate ER 30 mg Tablet 15 MG PO ×2 (08:41→20:50)
[2020-06-23] MEDS: amiodarone 200 mg Tablet 400 MG PO ×3 (08:41→20:50)
[2020-06-23] MEDS: docusate sodium 100 mg Capsule PO (08:42)
[2020-06-23] MEDS: pantoprazole DR 40 mg Tablet PO ×2 (08:42→20:51)
--- NOTE | 2020-06-23 09:23 | PC.CHAP ---
Pastoral Care Encounter/Spiritual Assessment Type of Contact [] Declined greaser and oiler visit [] Patient/Family/Request visit [] Outpatient visit [] Follow-up visit [] Physician referral [] Code/Alert [x] Routine visit [] Staff referral [] Actively dying [] Patient sleeping [] Family support [] [] Out of room [] Palliative care [] [] Receiving care in room [] Pre-surgical visit [] Trauma [] Long length of stay [] ICU visit [] Other: Relational/Emotional Strength [] Patient feels connected with others/family/visitors/staff [] Distress [] Loneliness/isolation [] Abandonment Spirituality of Patient [] Person of Dolly [] Attends Christianity of their Dolly [] Believes in Prayer [] Reads Bible or Restorationism materials [] There are Spiritual issues to be addressed House Mover Interventions [x] Prayer [x] Active listening [x] Non-anxious presence [x] Spiritual/emotional support [] Crisis/trauma care [] Spiritual counseling [] Bereavement support [] Provided bereavement packet [] Provided Bible/devotional materials [] Provided toy/stuffed animal, coloring book to patient or family member [] Provided Communion [] Anointing/[place] [] Salvation [x] Completed spiritual assessment [] Other: Impact on Illness or Injury [] Angry [] Fearful [] Anxious [] Often cries [] Exhaustion [] Unable to work [] Unable to attend cheondoism [] Unable to walk/stand [] Unable to read [] Unable to drive [] Unable to eat/drink [] Unable to sleep [] Unable to be with family [] Patient intubated [] Other: Summary resting well Time spent with patient 10 min
--- NOTE | 2020-06-23 09:35 | PC.NURSE ---
patient resting in bed at this time. no needs identified and call light within reach.
--- NOTE | 2020-06-23 09:49 | PC.NURSE ---
it was charted that patient had a left foot iv, patient does not. he has a left upper arm iv. documentation corrected from the start of my shift.
[2020-06-23] MEDS: ipratropium-albuterol 3 mL Neb INHALATION (09:50)
--- NOTE | 2020-06-23 10:14 | PM.PN ---
Subjective Subjective: Interval history: Patient is complaining of Worsening SOB as well as his inability to lie flat. His other Vitals and labs have been reviewed. Medications: Reviewed: Yes Vitals/I&O/Wt Last Vital Signs Temp 97.6 F 06/23/20 07:09 Pulse 99 06/23/20 09:50 Resp 17 06/23/20 09:50 BP 91/66 06/23/20 07:09 Pulse Ox 96 06/23/20 09:50 06/22/20 06/23/20 06/23/20 22:59 06:59 14:59 Intake Total 60 / 60 60 / 120 Output Total 1400 / 1400 Balance 60 / 60 -1340 / -1280 Weight last 48 hrs Weight 106.05 kg Weight 110.677 kg Physical Exam Const: COMMON NORMALS: patient oriented x3 HENMT: COMMON NORMALS: normocephalic and atraumatic HEAD & SCALP: normocephalic and atraumatic Chest: COMMONS NORMALS: normal inspection of the chest and normal palpation of entire chest wall CHEST: Yes Symmetrical chest wall rise Resp: COMMON NORMALS: normal respiratory effort, No retractions and No use of accessory muscles EFFORT & INSPECTION: Yes symmetric chest movement OTHER: B/L Basal crackles present Cardio: OTHER: S1S2 of Variable intensity. GI: COMMON NORMALS: Normal to inspection, nondistended, normoactive bowel sounds present, Soft to palpation, non-tender, No hepatosplenomegaly present and no masses AUSCULTATION: Yes normoactive bowel sounds PALPATION: Yes Soft to palpation and Yes No hepatosplenomegaly present RECTAL EXAM: Yes deferred Extremity: NARRATIVE EXTREMITY EXAM: Trace B/L L/E Pitting edema Neuro: COMMON NORMALS: patient oriented x3 Data : 06/23/20 00:33 06/23/20 00:33 A&P Assessment and plan (1) Acute exacerbation of CHF (congestive heart failure): Acute on chronic congestive heart failure exacerbation reduce ejection fraction ischemic cardiomyopathy has mitral and tricuspid valve regurgitation Chest x-ray showing recurrence of right-sided pleural effusion C.T Chest without Contrast: Small bilateral pleural effusions. RIGHT is slightly decreased in size. No change on the LEFT Bumex 2mg I.V q12 h daily I/O Charting Daily Weight Status: Acute (2) Atrial fibrillation with RVR: Current heart rate fluctuating between 110-120s atrial fibrillation with RVR Amidarone 400 MG TID Metoprolol Succinate 100 MG PO BID Metoprolol.T 5 gm I.V Q4H PRN Eliquis 5 MG Q12 H Daily Status: Acute (3) Anemia: Status: Acute (4) CKD (chronic kidney disease): Status: Acute (5) Elevated troponin: Status: Acute Additional A&P Information Coronary artery disease status post CABG with redo, no active chest pain no signs of acute exacerbation no [place] or ACS Full code Cardiac diet DVT prophylaxsis;On Eliquis Attestations Medical Necessity Statement*: Patient needs to be in hospital for the management of A.fib with RVR as well as Decompensated HFrEF Coding Level of Care Code Acute Radio Intelligence Operator for [place] Stout Diagnoses Acute exacerbation of CHF (congestive heart failure) I50.9 Atrial fibrillation with RVR I48.91 Anemia D64.9 CKD (chronic kidney disease) N18.9 Elevated troponin R77.8
--- NOTE | 2020-06-23 10:57 | CT_ITS ---
WS: [id number] CT CHEST WITHOUT INTRAVENOUS CONTRAST HISTORY: sob TECHNIQUE: Contiguous 5 mm axial imaging performed on the thorax. Coronal and sagittal reformats are submitted. All CT scans at [facility] use at least one of these dose optimization techniq ues: automated exposure control; mA and/or kV adjustment per patient size (includes targeted exams wh ere dose is matched to clinical indication); or iterative reconstruction. CONTRAST: None DLP: 930.01 mGy.cm COMPARISON: 06/09/2020 Lungs and central airway: Chronic emphysema with mild pulmonary edema. The edema does appear slightly improved as compared to 06/09/2020. No focal consolidation. Pleura: Bilateral pleural effusions. Small layering RIGHT pleural effusion has decreased in size from the prior study. There is a small layering RIGHT pleural effusion with a loculated component along t he LEFT lateral chest which is unchanged. Fluid extends into the fissures bilaterally. Heart and pericardium: Moderately enlarged heart. There is a small amount of pericardial fluid or per icardial thickening. Similar to the prior study. Status post CABG. Coronary artery calcifications are noted. Mediastinum and rk: Postsurgical changes from the sternotomy. There is no dehiscence or adjacent fl uid or new retrosternal collection. Postoperative collection just to the LEFT of the mid sternum is d ecreasing in size. There are small benign-appearing multiple mediastinal and hilar lymph nodes. Vessels: Mild atherosclerosis aorta. Normal pulmonary artery size. Chest wall and lower neck: Mild bilateral gynecomastia. Upper abdomen: Prior cholecystectomy. Osseous structures: No osteoblastic or osteolytic bone disease. Dorsal column stimulator wire is note d over the mid thoracic region. CT/CT chest wo con [id number] IMPRESSION: 1. Small bilateral pleural effusions. RIGHT is slightly decreased in size. No change on the LEFT. 2. Mild persistent pulmonary edema but slightly improved. 3. Status post CABG. 4. Cardiomegaly with no complications noted at the recent sternotomy. Previous ly described retrosternal collection is decreasing.
[2020-06-23] MEDS: metoprolol tartrate 1 mg/1 mL SDV 5 mL 5 MG IV (16:33)
[2020-06-23] MEDS: atorvastatin 40 mg Tablet 20 MG PO (17:33)
[2020-06-23] MEDS: metoprolol succinate ER (24 HR) 100 mg Tablet PO (17:33)
[2020-06-23] MEDS: bumetanide 0.25 mg/mL SDV 10 mL 2 MG IV (17:34)
--- NOTE | 2020-06-23 18:07 | PC.NURSE ---
Dr. Truong gave verbal order to give patient iv metoprolol. and put in a prn order. he also wanted the dose changed to 100 mg, order was changed.
[2020-06-24] VITALS (10 sets, daily range): BP systolic 92–112; BP diastolic 55–77; PULSE 98–121; RESP 15–30; TEMP 36.4–36.7; O2SAT 93–98
[2020-06-24 05:12] LABS: Basophils % 0.2 %; Hematocrit 31.8 % (42.0-52.0); Hemoglobin 9.7 g/dL (11.7-16.6); Lymphocytes # 1.5 10^3/uL (0.8-4.8); Mean Corpuscular HGB Conc 30.5 g/dL (30.0-36.0); Mean Corpuscular Hemoglobin 27.4 pg (28.0-34.0); Mean Corpuscular Volume 89.8 fL (80-94); Mean Platelet Volume 10.8 fL (7.4-10.4); Monocytes # 0.5 10^3/uL (0.2-0.9); Monocytes % 7.7 %; Neutrophils # 4.36 10^3/uL (1.8-7.7); Neutrophils % 68.6 %; Nucleated Red Blood Cells % 0 %; Platelet Count 277 10^3/cmm (130-400); Red Blood Count 3.54 10^6/uL (4.1-5.3); Red Cell Distribution Width 16.2 % (12.1-15.1); White Blood Count 6.4 10^3/uL (4.0-10.0)
[2020-06-24] MEDS: metoprolol tartrate 1 mg/1 mL SDV 5 mL 5 MG IV (06:32)
[2020-06-24 07:03] LABS: Alanine Aminotransferase 27 U/L (0-41); Albumin Level 3.8 g/dL (3.5-5.2); Alkaline Phosphatase 170 IU/L (40-130); Anion Gap 14.2 (5-19); Aspartate Amino Transferase 23 U/L (0-40); Blood Urea Nitrogen 24 mg/dL (8-23); Calcium 9.2 mg/dL (8.5-10.5); Carbon Dioxide 32 mmol/L (22-29); Chloride 97 mmol/L (98-107); Globulin 3.2 g/dL (1.3-4.6); Glomerular Filtration Rate 33.9 mL/min (90-130); Glucose 105 mg/dL (65-115); Magnesium 2.1 mg/dL (1.7-2.3); Osmolality Calculated 292 mOsm/kg (285-295); Potassium 4.2 mmol/L (3.5-5.1); Sodium 139 mmol/L (136-145); Total Bilirubin 0.5 mg/dL (0.15-1.2)
--- NOTE | 2020-06-24 07:37 | PC.NURSE ---
patient resting in bed at time of assessment. patient educated on the importance of using the urinal so that we could measure his urine. patient verbalized an understanding. patient denies any needs at this time. call light within reach.
[2020-06-24] MEDS: bumetanide 0.25 mg/mL SDV 10 mL 1 MG IV ×2 (08:46→15:20)
[2020-06-24] MEDS: aspirin 81 mg EC Tablet 162 MG PO (08:46)
[2020-06-24] MEDS: pantoprazole DR 40 mg Tablet PO ×2 (08:46→20:04)
[2020-06-24] MEDS: docusate sodium 100 mg Capsule PO (08:46)
[2020-06-24] MEDS: apixaban 5 mg Tablet PO ×2 (08:46→20:03)
[2020-06-24] MEDS: amiodarone 200 mg Tablet 400 MG PO ×3 (08:46→20:04)
[2020-06-24] MEDS: isosorbide mononitrate ER 30 mg Tablet 15 MG PO ×2 (08:46→20:03)
[2020-06-24] MEDS: metoprolol succinate ER (24 HR) 100 mg Tablet PO ×2 (08:47→17:54)
--- NOTE | 2020-06-24 09:11 | PC.CHAP ---
Pastoral Care Encounter/Spiritual Assessment Type of Contact [] Declined insurance and benefits clerk visit [] Patient/Family/Request visit [] Outpatient visit [] Follow-up visit [] Physician referral [] Code/Alert [x] Routine visit [] Staff referral [] Actively dying [x] Patient sleeping [] Family support [] [] Out of room [] Palliative care [] [] Receiving care in room [] Pre-surgical visit [] Trauma [] Long length of stay [] ICU visit [x] Other: patient resting well, didn't want to disturb Relational/Emotional Strength [] Patient feels connected with others/family/visitors/staff [] Distress [] Loneliness/isolation [] Abandonment Spirituality of Patient [] Person of Dolly [] Attends Protestant of their Dolly [] Believes in Prayer [] Reads Bible or Baptism materials [] There are Spiritual issues to be addressed Allergy Specialist Interventions [x] Prayer [] Active listening [] Non-anxious presence [] Spiritual/emotional support [] Crisis/trauma care [] Spiritual counseling [] Bereavement support [] Provided bereavement packet [] Provided Bible/devotional materials [] Provided toy/stuffed animal, coloring book to patient or family member [] Provided Communion [] Anointing/[place] [] Salvation [x] Completed spiritual assessment [] Other: Impact on Illness or Injury [] Angry [] Fearful [] Anxious [] Often cries [] Exhaustion [] Unable to work [] Unable to attend lutheran [] Unable to walk/stand [] Unable to read [] Unable to drive [] Unable to eat/drink [] Unable to sleep [] Unable to be with family [] Patient intubated [] Other: Summary Time spent with patient
--- NOTE | 2020-06-24 10:54 | P.PN_ITS ---
Subjective Subjective: Interval history: says that his SOB has improved.He has good urine output. His other Vitals and labs have been reviewed. Medications: Reviewed: Yes Vitals/I&O/Wt Last Vital Signs Temp 98.1 F 06/24/20 07:39 Pulse 101 H 06/24/20 09:11 Resp 17 06/24/20 09:11 BP 92/67 06/24/20 07:39 Pulse Ox 98 06/24/20 09:11 06/23/20 06/24/20 06/24/20 22:59 06:59 14:59 Intake Total 120 / 480 150 / 630 240 / 240 Output Total 500 / 501 800 / 1301 Balance -380 / -21 -650 / -671 240 / 240 Weight last 48 hrs Weight 106.05 kg Weight 110.677 kg Physical Exam Const: COMMON NORMALS: patient oriented x3 HENMT: COMMON NORMALS: normocephalic and atraumatic HEAD & SCALP: normocephalic and atraumatic Chest: COMMONS NORMALS: normal inspection of the chest and normal palpation of entire chest wall CHEST: Yes Symmetrical chest wall rise Resp: COMMON NORMALS: normal respiratory effort, No retractions and No use of accessory muscles EFFORT & INSPECTION: Yes symmetric chest movement OTHER: B/L Basal crackles present Cardio: OTHER: S1S2 of Variable intensity. GI: COMMON NORMALS: Normal to inspection, nondistended, normoactive bowel sounds present, Soft to palpation, non-tender, No hepatosplenomegaly present and no masses AUSCULTATION: Yes normoactive bowel sounds PALPATION: Yes Soft to palpation and Yes No hepatosplenomegaly present RECTAL EXAM: Yes deferred Extremity: NARRATIVE EXTREMITY EXAM: Trace B/L L/E Pitting edema Neuro: COMMON NORMALS: patient oriented x3 Data : 06/24/20 04:35 06/24/20 06:05 A&P Assessment and plan (1) Acute exacerbation of CHF (congestive heart failure): Acute on chronic congestive heart failure exacerbation reduce ejection fraction ischemic cardiomyopathy has mitral and tricuspid valve regurgitation Chest x-ray showing recurrence of right-sided pleural effusion C.T Chest without Contrast: Small bilateral pleural effusions. RIGHT is slightly decreased in size. No change on the LEFT Bumex 1mg I.V q12 h daily Dobutamine Drip @3mcg/kg/min I/O Charting Daily Weight Status: Acute (2) Atrial fibrillation with RVR: Current heart rate fluctuating between 110-120s atrial fibrillation with RVR Amidarone 400 MG TID Metoprolol Succinate 100 MG PO BID Metoprolol.T 5 gm I.V Q4H PRN Digoxin 250 MCG PO Once Eliquis 5 MG Q12 H Daily Status: Acute (3) Anemia: Status: Acute (4) CKD (chronic kidney disease): Status: Acute (5) Elevated troponin: Status: Acute Additional A&P Information Coronary artery disease status post CABG with redo, no active chest pain no signs of acute exacerbation no [place] or ACS Full code Cardiac diet DVT prophylaxsis;On Eliquis Attestations Medical Necessity Statement*: Patient needs to be in hospital for the management of A.Fib with RVR as well as decompensated HF Coding Level of Care Code Acute Cadastral Surveyor for Chg Fwd Diagnoses Acute exacerbation of CHF (congestive heart failure) I50.9 Atrial fibrillation with RVR I48.91 Anemia D64.9 CKD (chronic kidney disease) N18.9 Elevated troponin R77.8
[2020-06-24] MEDS: DOBUTamine drip 500 MG/250 ML PREMIX 9.5 MG IV (13:03)
[2020-06-24] MEDS: digoxin 250 mcg Tablet PO (13:05)
--- NOTE | 2020-06-24 13:09 | P.CONIM_ITS ---
Providers/Reason For Consult Consulting Physican/Specialty*: Dr. Perez, Cardiology Reason for Consult*: A. fib with RVR and decompensated CHF Attending Physician: Joao Truong MD Primary Care Provider: Thee Sage History of Present Illness History of Present Illness Rikki Barron is a 64 year old male with past medical history of coronary artery disease s/p CABG x 1 three years back (single graft WALLACE to LAD, circumflex and RCA were diffusely diseased and not bypassed at [facility]) with recent abnormal stress test, moderate to severe tricuspid valve regurgitation and severe mitral valve regurgitation. He also has history of PVC, chronic systolic congestive heart failure (LVEF=36%) and history of tobacco abuse. He underwent redo sternotomy and CABG x3 with great saphenous vein graft to diagonal, obtuse marginal and posterior descending. He also had mitral valve replacement with 33 mm epic porcine valve and tricuspid valve repair with 34 mm tri-Ad Lopez annuloplasty ring on 05/29/20. He was admitted at [facility] from May 29 to June 04, 2020 for the same. He was discharged home on mexiletine 150 mg 3 times daily, Lasix 40 mg daily for a week and then as needed along with potassium 10 M EQ. Plavix was held. He was discharged home on 3 L of oxygen. His creatinine on 20 June was 1.28 which had improved from 1.5. Hemoglobin of 8.6 hematocrit 26.5 and platelets 163. I do not have any documentation of A. fib post Sx on disc [facility]. # OSVALDO on 29 May intraoperatively that showed moderate to severely decreased global left ventricular systolic function with severely increased left ventricular cavity size. Severe mitral valve regurgitation dilated mitral valve annulus with restricted leaflet mobility during systole. Severe tricuspid valve regurgitation severely dilated left atrium and mildly dilated right atrium. Mild to moderate aortic valve regurgitation moderately enlarged right ventricle with tricuspid annular dilation. Post-bypass bioprosthetic valve seen in mitral position well-seated. Small paravalvular leak. Annuloplasty ring present in tricuspid position at least moderate residual TR no other changes compared to prebypass exam. #EKG from and 30 May showed sinus tachycardia with frequent PVCs low QRS voltage and nonspecific ST and T wave abnormality.EKG today with A. fib with RVR and non specific ST-T wave abnormality. He was admitted with A. fib with RVR, decompensated CHF, pleural effusion and concern for GI bleed last month. His anticoagulation was held. He not have any episodes of BRBPR throughout hospitalization. Hemoglobin remained stable. He was diascharged home on Eliquis. He was also started on amiodarone drip on admission on (06/08/20) and transitioned to PO 400 mg TID on 06/11/19. He also underwent right thoracentesis. He presented again with decompensated CHF from cardiology office. I have been asked to assist in further management. Review of Systems General: Reports: 10 or more systems reviewed and unremarkable except in HPI and below Const: Reports: fatigue and malaise; Denies: fever(s), chills or body aches Eyes: Denies: change in vision ENMT: Denies: throat pain Card: Reports: swelling of feet/ankles, dyspnea on exertion and orthopnea; Denies: chest pain or pre-syncope Resp: Reports: dyspnea and non-productive cough GI: Denies: abdominal pain : Denies: flank pain Musc: Reports: muscle cramps; Denies: neck pain or limited range of motion Skin/Breast: Denies: rash Neuro: Denies: headache(s) Psych: Denies: anxiety Endo: Denies: polyuria Nixon/Lymph: Denies: easy bruising All/Imm: Denies: urticaria Meds/Allergies Home Medications and Allergies Home Medications Medication Instructions Recorded Confirmed Last Taken Type aspirin 81 mg tablet,delayed 81 mg PO DAILY@09 tab 11/04/19 06/22/20 06/22/20 History release albuterol sulfate 2 puff INHALATION Q4H PRN 06/08/20 06/22/20 06/22/20 History alprazolam 0.25 mg PO BID PRN 06/08/20 06/22/20 Unknown History bisacodyl 5 mg PO DAILY PRN 06/08/20 06/22/20 Unknown History docusate sodium 100 mg PO DAILY@08 06/08/20 06/22/20 06/07/20 History temazepam 30 mg PO BEDTIME PRN 06/08/20 06/22/20 06/07/20 History tramadol 100 mg PO Q6H PRN 06/08/20 06/22/20 06/21/20 History furosemide [Lasix] 40 mg PO BID PRN #60 tab 06/14/20 06/22/20 06/22/20 Rx potassium chloride 10 mEq 20 meq PO DAILY PRN #60 tab 06/15/20 06/22/20 06/22/20 Rx tablet,extended release simvastatin 10 mg tablet 10 mg PO DAILY@18 #30 tab 06/15/20 06/22/20 06/21/20 Rx amiodarone [Pacerone] 400 mg PO TID@08,,06/22/20 06/22/20 06/22/20 History apixaban 5 mg PO BID@0800,199906/22/20 06/22/20 06/22/20 History cephalexin 500 mg PO QID@08,,,06/22/20 06/22/20 06/22/20 History isosorbide mononitrate 15 mg PO BID@0800,199906/22/20 06/22/20 06/22/20 History metoprolol succinate 50 mg PO BID@08,06/22/20 06/22/20 06/22/20 History pantoprazole 40 mg PO BID@0800,199906/22/20 06/22/20 06/22/20 History Allergies Allergy/AdvReac Type Severity Reaction Status Date / Time codeine Allergy Severe ADR-Agitate Verified 06/22/20 15:04 d morphine Allergy Severe ALGY-Difficulty Verified 06/22/20 15:04 Breathing acetaminophen [From Tylenol] AdvReac Severe ADR-Agitate Verified 06/22/20 15:04 d Current Medications Current Medications Generic Name Dose Route Start Last Admin Trade Name Freq PRN Reason Stop Dose Admin Albuterol/Ipratropium 3 ml 06/22/20 21:46 06/23/20 09:50 Ipratropium-Albuterol 3 Ml Neb INHALATION 3 ml Q4H PRN Administration SHORTNESS OF BREATH Amiodarone HCl 400 mg 06/22/20 22:40 06/24/20 11:59 Amiodarone 200 Mg Tablet PO 400 mg TID@, ROSA MARIA Administration Apixaban 5 mg 06/23/20 08:00 06/24/20 08:46 Apixaban 5 Mg Tablet PO 5 mg BID@799,1999 ROSA MARIA Administration Aspirin 162 mg 06/23/20 09:00 06/24/20 08:46 Aspirin 81 Mg Ec Tablet PO 162 mg DAILY@09 ROSA MARIA Administration Atorvastatin Calcium 20 mg 06/23/20 18:00 06/23/20 17:33 Atorvastatin 40 Mg Tablet PO 20 mg DAILY@18 ROSA MARIA Administration Bumetanide 1 mg 06/24/20 09:00 06/24/20 08:46 Bumetanide 0.25 Mg/Ml Sdv 10 Ml IV 1 mg BID ROSA MARIA Administration Docusate Sodium 100 mg 06/23/20 08:00 06/24/20 08:46 Docusate Sodium 100 Mg Capsule PO 100 mg DAILY@08 ROSA MARIA Administration Dobutamine HCl/Dextrose 500 mg in 250 mls @ 9.545 mls/hr 06/24/20 12:30 06/24/20 13:03 Dobutamine Drip IV 3 mcg/kg/min .Q24H ROSA MARIA 9.5 mls/hr Administration 3 MCG/KG/MIN Isosorbide Mononitrate 15 mg 06/23/20 08:00 06/24/20 08:46 Isosorbide Mononitrate Er 30 Mg Tablet PO 15 mg BID@ [facility] Administration Metoprolol Succinate 100 mg 06/23/20 18:00 06/24/20 08:47 Metoprolol Succinate Er (24 Hr) 100 Mg Tablet PO 100 mg BID ROSA MARIA Administration Metoprolol Tartrate 5 mg 06/23/20 16:14 06/24/20 06:32 Metoprolol Tartrate 1 Mg/1 Ml Sdv 5 Ml IV 5 mg PRN PRN Administration heart rate greater than 110 Pantoprazole Sodium 40 mg 06/23/20 08:00 06/24/20 08:[address] 40 Mg Tablet PO 40 mg BID@ ROSA MARIA Administration PFSH Acute PFSH: Medical History ASHD (arteriosclerotic heart disease) Atrial fibrillation CAD (coronary artery disease) Worsening of shortness of breath along with chest pressure in the patient with history of extensive coronary disease and bypass surgery Chronic headaches Chronic kidney disease Chronic pain Emphysema of lung Irritation around percutaneous endoscopic gastrostomy (PEG) tube site LV dysfunction Mitral valve regurgitation Pulmonary hypertension Pulmonary nodule Shortness of breath Systolic heart failure Tricuspid valve regurgitation Surgical History Previous back surgery S/P CABG (coronary artery bypass graft) S/P insertion of intrathecal pump S/P wrist surgery Family History Other Heart disease Stroke Social History Smoking and tobacco status: current every day smoker cigarettes Packs smoked per day: 1.5 Years cigarettes smoked: 40 Quit status (tobacco): has tried quititng Alcohol intake: never Lives independently: Yes Household members: spouse Marital status: Current occupational status: disabled History of recent travel: No Current gender identity: Male Vitals/I&O/Wt Last Vital Signs Temp 98.1 F 06/24/20 07:39 Pulse 101 H 06/24/20 09:11 Resp 17 06/24/20 09:11 BP 92/67 06/24/20 07:39 Pulse Ox 98 06/24/20 09:11 06/23/20 06/24/20 06/24/20 22:59 06:59 14:59 Intake Total 120 / 480 150 / 630 240 / 240 Output Total 500 / 501 800 / 1301 Balance -380 / -21 -650 / -671 240 / 240 Weight last 48 hrs Weight 233 lb 12.8 oz Weight 244 lb Physical Exam Narrative: EXAM NARRATIVE: Gen: Patient lying propped up in bed in NAD HEENT: PEERL, mild pallor, no icterus, elevated JVD CVS: S1, S2 irregular, tachycardia +, systolic murmur present in LLSB RS: decreased breath sounds at bilateral bases, intermittent rales diffusely WEB MARKETING INTERN: AAOx 3, NO FND; extremities warm Skin: No rash Psych: Normal mood and affect Data Other Data: Attestation for Other Data: I personally reviewed and interpreted the following: Other data: # TTE CONCLUSIONS 1. This is a technically very difficult study. Interpretation is limited by rapid ventricular response. 2. Dilated left ventricle. Severely decreased left ventricular systolic function. Left ventricular ejection fraction is estimated at 15-20 %. Severe global hypokinesis. 3. Probably normal right ventricular size with decreased right ventricular systolic function. 4. Moderate tricuspid valve regurgitation. ATRIAL FIB WITH RAPID VENTRICULAR RESPONSE NONSPECIFIC ST & T-WAVE ABNORMALITY ABNORMAL RHYTHM ECG Compared to ECG 06/22/2020 17:30:30 [address] is [address] CT scan of chest 23 June 2020 IMPRESSION: 1. Small bilateral pleural effusions. RIGHT is slightly decreased in size. No change on the LEFT. 2. Mild persistent pulmonary edema but slightly improved. 3. Status post CABG. 4. Cardiomegaly with no complications noted at the recent sternotomy. Previously described retrosternal collection is decreasing. # CXR (06/23/20) IMPRESSION: Increased interstitial markings and increased size of bilateral pleural effusions, suggestive of pulmonary edema. Pneumonia should be excluded clinically. A&P Assessment and plan (1) Shortness of breath: In setting of decompensated CHF and atrial fibrillation with RVR. Status: Acute (2) Systolic heart failure: ACC/AHA Stage C-D Acute on chronic systolic CHF -LVEF 15-20% on echo; about the same as OSVALDO intraop. -I think he is getting decompensated in setting of A. fib with RVR. -Currently on metoprolol, No t on ACEI/ARB or ARNI given renal function and soft BP. -continue with Dobutamine and bumex in attempt to diurese. _I will set him up for life vest this visit. Status: Acute Qualifiers: Heart failure chronicity: acute on chronic Qualified Code(s): I50.23 - Acute on chronic systolic (congestive) heart failure (3) Atrial fibrillation: Remains in RVR -decrease amiodarone to 200 mg daily -received Digoxin 250 mcg x 1 today. -on anticoagulation. I believe he needs OSVALDO/CV to restore NSR. Status: Acute Qualifiers: Atrial fibrillation type: persistent (not longstanding) Qualified Code(s): I48.19 - Other persistent atrial fibrillation (4) Elevated troponin: In setting of decompensated CHF . -No delta change. Status: Resolved Additional A&P Information s/p Bio MVR : well seated, no significant regurgitation noted s/p tricuspid valve ring annuloplasty: residual moderate MR h/o PVC's Anemia CKD Emphysema h/o lung nodule Smoker Thank you for allowing me to participate in patient's care. Please feel free to call with questions or concerns Consult Attestations Medical Necessity Statement: Needs hospital stay for dCHF and a. fib with RVR Time Spent in Patient Care: Greater than 35 minutes (>than 50% of time spent in counselling and/or direct pt care on unit) . Coding Level of Care Code Acute Activities Attendant for Chg Fwd Diagnoses Shortness of breath R06.02 Systolic heart failure I50.23 Heart failure chronicity: acute on chronic Atrial fibrillation I48.19 Atrial fibrillation type: persistent (not longstanding) Elevated troponin R77.8
--- NOTE | 2020-06-24 13:30 | PC.NURSE ---
dobutamine drip started per order from Dr. Perez. digoxin also administered per order. patient educated on these two medications and verbalized an understanding.
--- NOTE | 2020-06-24 15:09 | PC.NURSE ---
dr perez called and notfied of patient complaining of chest pain and stating, It feels like it is getting more difficult to breath. patient vitals were reported to . bp 87/51 and heart rate 120. Dr. Perez order that if chest pain doesn't resolve shortly to give the 1800 dose of bumex. call light within reach.
--- NOTE | 2020-06-24 15:18 | PC.NURSE ---
dr cuevas called and ordered to give 1800 dose of bumex now.
--- NOTE | 2020-06-24 17:06 | PC.RESP ---
Smoking Cessation information sent to patient.
[2020-06-24] MEDS: atorvastatin 40 mg Tablet 20 MG PO (17:54)
--- NOTE | 2020-06-24 17:57 | PC.NURSE ---
blood pressure 93/50 Dr. Truong order to give medications. and insert torres.
[2020-06-24] MEDS: bumetanide 0.25 mg/mL SDV 4 mL 1 MG IV (21:55)
--- NOTE | 2020-06-24 22:07 | PC.NURSE ---
spoke to pt about placing coude catheter, pt refused catheter stating that the first two attempts to place torres were too painful and he was not having any trouble urinating, educated pt on importance of using urinal to accurately measure output, pt voiced understanding
[2020-06-25] VITALS (14 sets, daily range): BP systolic 98–109; BP diastolic 61–69; PULSE 86–121; RESP 15–25; TEMP 36.5–37.1; O2SAT 91–100
[2020-06-25 05:44] LABS: Basophils % 0.2 %; Hematocrit 29.9 % (42.0-52.0); Hemoglobin 9.2 g/dL (11.7-16.6); Lymphocytes # 1.3 10^3/uL (0.8-4.8); Lymphocytes % 21.4 %; Mean Corpuscular HGB Conc 30.8 g/dL (30.0-36.0); Mean Corpuscular Volume 87.7 fL (80-94); Mean Platelet Volume 10.2 fL (7.4-10.4); Monocytes # 0.4 10^3/uL (0.2-0.9); Monocytes % 7.5 %; Neutrophils # 4.17 10^3/uL (1.8-7.7); Neutrophils % 70.6 %; Nucleated Red Blood Cells % 0 %; Platelet Count 284 10^3/cmm (130-400); Red Blood Count 3.41 10^6/uL (4.1-5.3); Red Cell Distribution Width 15.9 % (12.1-15.1); White Blood Count 5.9 10^3/uL (4.0-10.0)
[2020-06-25 06:01] LABS: Alanine Aminotransferase 22 U/L (0-41); Albumin Level 3.6 g/dL (3.5-5.2); Alkaline Phosphatase 149 IU/L (40-130); Anion Gap 12.7 (5-19); Aspartate Amino Transferase 12 U/L (0-40); Blood Urea Nitrogen 27 mg/dL (8-23); Calcium 8.7 mg/dL (8.5-10.5); Carbon Dioxide 31 mmol/L (22-29); Chloride 98 mmol/L (98-107); Globulin 3.1 g/dL (1.3-4.6); Glucose 96 mg/dL (65-115); Magnesium 2.1 mg/dL (1.7-2.3); Osmolality Calculated 291 mOsm/kg (285-295); Potassium 3.7 mmol/L (3.5-5.1); Sodium 138 mmol/L (136-145); Total Bilirubin 0.4 mg/dL (0.15-1.2); Total Protein 6.7 g/dL (6.6-8.7)
[2020-06-25 06:26] LABS: Folate Level 16.1 ng/mL (4.5-32.2)
[2020-06-25 07:02] LABS: Ferritin 143 ng/mL (30-400); Iron 44 ug/dL (59-158); Percent Saturation 18.9 % (20-50); Total Iron Binding Capacity 232 mcg/dl; Transferrin 194 mg/dL (200-360); Unsaturated Iron Binding 188 ug/dL (112-347)
[2020-06-25 07:18] LABS: Vitamin B12 445 pg/mL (232-1245)
--- NOTE | 2020-06-25 08:30 | PC.NURSE ---
Upon initial rounding, patient states that when his gets to the hospital he is leaving. Patient educated on risks associated with leaving AMA, patient verbalized understanding. Dr. Truong notified. Physician came to bedside. Patient now agreeable to stay and continue treatment. Verbal order received for 2 mg dilaudid PO PRN q6 hour for pain. Nurse to continue to monitor.
[2020-06-25] MEDS: metoprolol succinate ER (24 HR) 100 mg Tablet PO ×2 (09:18→17:56)
[2020-06-25] MEDS: pantoprazole DR 40 mg Tablet PO ×2 (09:18→20:39)
[2020-06-25] MEDS: docusate sodium 100 mg Capsule PO (09:18)
[2020-06-25] MEDS: amiodarone 200 mg Tablet PO (09:18)
[2020-06-25] MEDS: aspirin 81 mg EC Tablet 162 MG PO (09:18)
[2020-06-25] MEDS: bumetanide 0.25 mg/mL SDV 10 mL 1 MG IV (09:19)
[2020-06-25] MEDS: apixaban 5 mg Tablet PO ×2 (09:19→20:38)
--- NOTE | 2020-06-25 09:30 | PC.NURSE ---
Sr. Perez updated on patient condition. Due to BP, hold imdur at this time, administer other medications. Recheck BP in one hour and update physician. RBVO.
--- NOTE | 2020-06-25 11:00 | PC.NURSE ---
Dr. Perez updated on patient condition. BP now 98/66. No CP at this time. Telephone order to hold imdur. RBTO.
[2020-06-25] MEDS: DOBUTamine drip 500 MG/250 ML PREMIX 9.5 MG IV (11:57)
--- NOTE | 2020-06-25 12:47 | PM.PN ---
Subjective Subjective: Interval history: Patient feels SOB, No events on telemetry. remains in A. flutter/fib in 's Medications: Reviewed: Yes Vitals/I&O/Wt Last Vital Signs Temp 97.8 F 06/25/20 10:46 Pulse 117 H 06/25/20 10:46 Resp 16 06/25/20 10:46 BP 98/66 06/25/20 10:46 Pulse Ox 97 06/25/20 10:46 06/24/20 06/25/20 06/25/20 22:59 06:59 14:59 Intake Total 240 / 720 547 / 1267 577.55 / 577.55 Output Total 800 / 1100 400 / 1500 275 / 275 Balance -560 / -380 147 / -233 302.55 / 302.55 Physical Exam Narrative: EXAM NARRATIVE: Gen: Patient lying propped up in bed in NAD HEENT: PEERL, mild pallor, no icterus, elevated JVD CVS: S1, S2 irregular, tachycardia +, systolic murmur present in LLSB RS: decreased breath sounds at bilateral bases, intermittent rales diffusely PRODUCT RESPONSIBILITY LIAISON: AAOx 3, NO FND; extremities warm Skin: No rash Psych: Normal mood and affect Data : 06/25/20 05:00 06/25/20 05:00 A&P Assessment and plan (1) Shortness of breath: In setting of decompensated CHF and atrial fibrillation with RVR. Status: Acute (2) Systolic heart failure: ACC/AHA Stage C-D Acute on chronic systolic CHF -LVEF 15-20% on echo; about the same as OSVALDO intraop. -I think he is getting decompensated in setting of A. fib with RVR. -Currently on metoprolol, No t on ACEI/ARB or ARNI given renal function and soft BP. -continue with Dobutamine and bumex in attempt to diurese. _He has life vest at home. Status: Acute Qualifiers: Heart failure chronicity: acute on chronic Qualified Code(s): I50.23 - Acute on chronic systolic (congestive) heart failure (3) Atrial fibrillation: Remains in RVR -decrease amiodarone to 200 mg daily -received Digoxin 250 mcg x 1 yesterday. will consider another dose today. -on anticoagulation. I believe he needs OSVALDO/CV to restore NSR. Status: Acute Qualifiers: Atrial fibrillation type: persistent (not longstanding) Qualified Code(s): I48.19 - Other persistent atrial fibrillation (4) Elevated troponin: In setting of decompensated CHF . -No delta change. Status: Resolved Additional A&P Information s/p Bio MVR : well seated, no significant regurgitation noted s/p tricuspid valve ring annuloplasty: residual moderate MR h/o PVC's Anemia CKD Emphysema h/o lung nodule Smoker Thank you for allowing me to participate in patient's care. Please feel free to call with questions or concerns Attestations Medical Necessity Statement*: Patient needs to be in hospital for the management of A.Fib with RVR as well as decompensated HF Time Spent in Patient Care: Greater than 35 minutes (>than 50% of time spent in counselling and/or direct pt care on unit). Coding Level of Care Code Acute Automatic Clipper for Chica Stout Diagnoses Shortness of breath R06.02 Systolic heart failure I50.23 Heart failure chronicity: acute on chronic Atrial fibrillation I48.19 Atrial fibrillation type: persistent (not longstanding) Elevated troponin R77.8
--- NOTE | 2020-06-25 12:54 | P.PN_ITS ---
Subjective Subjective: Interval history: was expressing his desire to go home.But agreed to stay when we explained him the medical necessity to stay in the hospital. Over all he continues to stay in A. flutter/fib in 110's. SOB has slightly improved. His other vitals and labs have been reviewed. Medications: Reviewed: Yes Vitals/I&O/Wt Last Vital Signs Temp 97.8 F 06/25/20 10:46 Pulse 117 H 06/25/20 10:46 Resp 16 06/25/20 10:46 BP 98/66 06/25/20 10:46 Pulse Ox 97 06/25/20 10:46 06/24/20 06/25/20 06/25/20 22:59 06:59 14:59 Intake Total 240 / 720 547 / 1267 577.55 / 577.55 Output Total 800 / 1100 400 / 1500 275 / 275 Balance -560 / -380 147 / -233 302.55 / 302.55 Physical Exam Const: COMMON NORMALS: patient oriented x3 HENMT: COMMON NORMALS: normocephalic and atraumatic HEAD & SCALP: no rmocephalic and atraumatic Chest: COMMONS NORMALS: normal inspection of the chest and normal palpation of entire chest wall CHEST: Yes Symmetrical chest wall rise Resp: COMMON NORMALS: normal respiratory effort, No retractions and No use of accessory muscles EFFORT & INSPECTION: Yes symmetric chest movement OTHER: B/L Basal crackles present Cardio: OTHER: S1S2 of Variable intensity. GI: COMMON NORMALS: Normal to inspection, nondistended, normoactive bowel sounds present, Soft to palpation, non-tender, No hepatosplenomegaly present and no masses AUSCULTATION: Yes normoactive bowel sounds PALPATION: Yes Soft to palpation and Yes No hepatosplenomegaly present RECTAL EXAM: Yes deferred Extremity: NARRATIVE EXTREMITY EXAM: Trace B/L L/E Pitting edema Neuro: COMMON NORMALS: patient oriented x3 Data : 06/25/20 05:00 06/25/20 05:00 A&P Assessment and plan (1) Acute exacerbation of CHF (congestive heart failure): Acute on chronic congestive heart failure exacerbation reduce ejection fraction ischemic cardiomyopathy has mitral and tricuspid valve regurgitation Chest x-ray showing recurrence of right-sided pleural effusion C.T Chest without Contrast: Small bilateral pleural effusions. RIGHT is slightly decreased in size. No change on the LEFT Bumex 2 mg I.V q12 h daily Dobutamine Drip @5mcg/kg/min I/O Charting Daily Weight Status: Acute (2) Atrial fibrillation with RVR: Current heart rate fluctuating between 110-120s atrial fibrillation with RVR Amidarone 400 MG TID Metoprolol Succinate 100 MG PO BID Metoprolol.T 5 gm I.V Q4H PRN Digoxin 250 MCG PO Once Eliquis 5 MG Q12 H Daily Status: Acute (3) Anemia: Status: Acute (4) CKD (chronic kidney disease): Status: Acute (5) Elevated troponin: Status: Acute Additional A&P Information Coronary artery disease status post CABG with redo, no active chest pain no signs of acute exacerbation no VA or ACS Full code Cardiac diet DVT prophylaxsis;On Eliquis Attestations Medical Necessity Statement*: Patient needs to be in hospital for the managem ent of A.Fib with RVR as well as decompensated HF. Coding Level of Care Code Acute Patient Placement Coordinator for Chica Stout Diagnoses Acute exacerbation of CHF (congestive heart failure) I50.9 Atrial fibrillation with RVR I48.91 Anemia D64.9 CKD (chronic kidney disease) N18.9 Elevated troponin R77.8
[2020-06-25] MEDS: bumetanide 0.25 mg/mL SDV 4 mL 1 MG IV (13:09)
[2020-06-25] MEDS: bumetanide 0.25 mg/mL SDV 10 mL 2 MG IV (17:57)
[2020-06-25] MEDS: atorvastatin 40 mg Tablet 20 MG PO (17:57)
[2020-06-25] MEDS: isosorbide mononitrate ER 30 mg Tablet 15 MG PO (20:39)
[2020-06-25 22:18] LABS: SARS Covid-2 Antigen Negative (Negative)
[2020-06-26] VITALS (38 sets, daily range): BP systolic 71–117; BP diastolic 44–71; PULSE 61–128; RESP 12–27; TEMP 36.1–36.9; O2SAT 95–100
[2020-06-26 03:59] LABS: Basophils % 0.2 %; Hematocrit 32.6 % (42.0-52.0); Hemoglobin 9.8 g/dL (11.7-16.6); Lymphocytes # 1.8 10^3/uL (0.8-4.8); Lymphocytes % 28.3 %; Mean Corpuscular HGB Conc 30.1 g/dL (30.0-36.0); Mean Corpuscular Hemoglobin 27.4 pg (28.0-34.0); Mean Corpuscular Volume 91.1 fL (80-94); Mean Platelet Volume 10.4 fL (7.4-10.4); Monocytes # 0.5 10^3/uL (0.2-0.9); Monocytes % 8.5 %; Neutrophils # 3.92 10^3/uL (1.8-7.7); Neutrophils % 62.7 %; Nucleated Red Blood Cells % 0 %; Platelet Count 275 10^3/cmm (130-400); Red Blood Count 3.58 10^6/uL (4.1-5.3); Red Cell Distribution Width 15.7 % (12.1-15.1); White Blood Count 6.3 10^3/uL (4.0-10.0)
[2020-06-26 04:40] LABS: Alanine Aminotransferase 22 U/L (0-41); Albumin Level 3.5 g/dL (3.5-5.2); Alkaline Phosphatase 141 IU/L (40-130); Blood Urea Nitrogen 27 mg/dL (8-23); Calcium 9.1 mg/dL (8.5-10.5); Carbon Dioxide 31 mmol/L (22-29); Chloride 99 mmol/L (98-107); Globulin 3.2 g/dL (1.3-4.6); Glomerular Filtration Rate 33.9 mL/min (90-130); Glucose 95 mg/dL (65-115); Magnesium 2.3 mg/dL (1.7-2.3); Osmolality Calculated 297 mOsm/kg (285-295); Sodium 141 mmol/L (136-145); Total Bilirubin 0.4 mg/dL (0.15-1.2); Total Protein 6.7 g/dL (6.6-8.7)
[2020-06-26 04:41] LABS: Anion Gap 15.9 (5-19); Aspartate Amino Transferase 19 U/L (0-40); Potassium 4.9 mmol/L (3.5-5.1)
[2020-06-26] MEDS: DOBUTamine drip 500 MG/250 ML PREMIX 15.9 MG IV ×2 (04:59→22:57)
[2020-06-26] MEDS: apixaban 5 mg Tablet PO ×2 (07:38→20:13)
[2020-06-26] MEDS: docusate sodium 100 mg Capsule PO (07:38)
[2020-06-26] MEDS: pantoprazole DR 40 mg Tablet PO ×2 (07:38→20:13)
[2020-06-26] MEDS: metOLazone 5 MG Tablet PO (07:38)
[2020-06-26] MEDS: ipratropium-albuterol 3 mL Neb INHALATION (07:55)
[2020-06-26] MEDS: bumetanide 0.25 mg/mL SDV 10 mL 2 MG IV ×2 (09:03→17:23)
[2020-06-26] MEDS: metoprolol succinate ER (24 HR) 100 mg Tablet PO ×2 (09:05→17:22)
[2020-06-26] MEDS: aspirin 81 mg EC Tablet PO (09:05)
[2020-06-26] MEDS: amiodarone 200 mg Tablet PO (09:05)
--- NOTE | 2020-06-26 09:26 | DCPLANNER ---
IMM completed on 06/26/20 @ 0912. Copy of rights given to pt.
--- NOTE | 2020-06-26 10:15 | ANES.PREANE2 ---
Pre-Anesthetic Assessment Pre-Anesthetic Assessment: Height/Weight: Height 1.8 m Weight 106.05 kg Temp Pulse Resp BP Pulse Ox 97.4 F L 124 H 15 95/65 95 06/26/20 08:00 06/26/20 08:00 06/26/20 08:00 06/26/20 08:45 06/26/20 08:00 Preop Diagnosis: A fib w/ RBR Proposed Procedure: Operation Date: 06/26/20 13:15 Proposed Procedures p OSVALDO (Transesophageal Echocardiogram)(Not Applicable) - Shelly Perez MD Familial anesthetic complications: None Last intake: NPO > 8 hrs Social: Social History: No alcohol and No tobacco Comment: former smoker Exam: Pre-Anes Outpt Exam: alert, oriented x 3, clear to auscultation bilaterally and regular rate & rhythm Additional Exam Findings (including area of procedure): a fib w/ rvr Airway: Cervical ROM: WNL MP: 4 Dentition: Chipped and Other (missing) Pulmonary: Pulmonary: COPD (3 L NC) CV/HEM: CV/HEM: Afib and CHF Comments: sever MVR/TVR s/p replacement and ring, CABG X2, Echo w/ EF of 15-20%, life vest at home : : Chronic renal Insufficiency Anesthetic Plan: ASA status: 4 Anesthesia: MAC Risk of > 500 ml blood loss (7ml/kg in children): No Meds/Allergies Current Medications: Current Medications Generic Name Dose Route Start Last Admin Trade Name Freq PRN Reason Stop Dose Admin Albuterol/Ipratrop ium 3 ml 06/22/20 21:46 06/26/20 07:55 Ipratropium-Albu terol 3 Ml Neb INHALATION 3 ml Q4H PRN Administration SHORTNESS OF LORENZO TH Amiodarone HCl 200 mg 06/25/20 09:00 06/26/20 09:05 Amiodarone 200 M g Tablet PO 200 mg DAILY ROSA MARIA Administration Apixaban 5 mg 06/23/20 08:00 06/26/20 07:38 Apixaban 5 Mg Ta blet PO 5 mg BID@0800,1999 ROSA MARIA Administration Aspirin 81 mg 06/26/20 09:00 06/26/20 09:05 Aspirin 81 Mg Ec Tablet PO 81 mg DAILY@09 ROSA MARIA Administration Atorvastatin Calci um 20 mg 06/23/20 18:00 02/04/21 17:57 Atorvastatin 40 Mg Tablet PO 20 mg DAILY@18 ROSA MARIA Administration Bumetanide 2 mg 06/25/20 18:00 06/26/20 09:03 Bumetanide 0.25 Mg/Ml Sdv 10 Ml IV 2 mg BID ROSA MARIA Administration Docusate Sodium 100 mg 06/23/20 08:00 06/26/20 07:38 Docusate Sodium 100 Mg Capsule PO 100 mg DAILY@08 ROSA MARIA Administration Hydromorphone HCl 2 mg 06/25/20 08:21 06/25/20 20:37 Hydromorphone 4 Mg Tablet PO 2 mg Q6H PRN Administration PAIN Dobutamine HCl/Dex trose 500 mg in 250 mls @ 15.908 mls/hr 06/24/20 12:30 06/26/20 04:59 Dobutamine Drip IV 5 mcg/kg/min .[id number] ROSA MARIA 15.9 mls/hr Administration 5 MCG/KG/MIN Isosorbide Mononit rate 15 mg 06/25/20 20:00 06/25/20 20:39 Isosorbide [place] itrate Er 30 Mg Ta blet PO 15 mg 1999 [facility] Administration Metoprolol Succina te 100 mg 06/23/20 18:00 06/26/20 09:05 Metoprolol Succi александр Er (24 Hr) 10 0 Mg Tablet PO 100 mg BID ROSA MARIA Administration Metoprolol Tartrat e 5 mg 06/23/20 16:14 06/24/20 06:32 Metoprolol Tartr ate 1 Mg/1 Ml Sdv 5 Ml IV 5 mg PRN PRN Administration heart rate greate r than 110 Pantoprazole Sodiu m 40 mg 06/23/20 08:00 06/26/20 07:[address] 40 Mg Tablet PO 40 mg BID@799,1999 [facility] Administration PFSH Anesthesia PFSH: Medical History ASHD (arteriosclerotic heart disease) Atrial fibrillation CAD (coronary artery disease) Worsening of shortness of breath along with chest pressure in the patient with history of extensive coronary disease and bypass surgery Chronic headaches Chronic kidney disease Chronic pain Emphysema of lung Irritation around percutaneous endoscopic gastrostomy (PEG) tube site LV dysfunction Mitral valve regurgitation Pulmonary hypertension Pulmonary nodule Shortness of breath Systolic heart failure Tricuspid valve regurgitation Surgical History Previous back surgery S/P CABG (coronary artery bypass graft) S/P insertion of intrathecal pump S/P wrist surgery Family History Other Heart disease Stroke Social History Smoking and tobacco status: current every day smoker cigarettes Packs smoked per day: 1.5 Years cigarettes smoked: 40 Quit status (tobacco): has tried quititng Alcohol intake: never Lives independently: Yes Household members: spouse Marital status: Current occupational status: disabled History of recent travel: No Current gender identity: Male Data Anesthesia CBC & Chem 7: 06/26/20 03:17 06/26/20 03:17 Other Labs: Laboratory Results - last 48 hr 06/25/20 06/25/20 06/25/20 05:00 05:00 05:00 WBC 5.9 RBC 3.41 L Hgb 9.2 L Hct 29.9 L MCV 87.7 MCH 27.0 L MCHC 30.8 RDW 15.9 H Plt Count 284 MPV 10.2 Neut % (Auto) 70.6 Lymph % (Auto) 21.4 [place] % (Auto) 7.5 Eos % (Auto) 0.0 Baso % (Auto) 0.2 Neut # (Auto) 4.17 Lymph # (Auto) 1.3 [place] # (Auto) 0.4 Eos # (Auto) 0.0 Baso # (Auto) 0.0 Nucleated RBC % (auto) 0 Nucleated RBCs # 0.0 Sodium 138 Potassium 3.7 Chloride 98 Carbon Dioxide 31 H Anion Gap 12.7 BUN 27 H Creatinine 1.9 H GFR Calculation 36.0 L Glucose 96 Calculated Osmolality 291 Calcium 8.7 Magnesium 2.1 Iron 44 L TIBC 232 % Saturation 18.9 L Unsat Iron Binding 188 Transferrin 194 L Ferritin 143 Total Bilirubin 0.4 AST 12 ALT 22 Alkaline Phosphatase 149 H Total Protein 6.7 Albumin 3.6 Globulin 3.1 Vitamin B12 445 Folate SARS-CoV-2 Ag (Rapid) 06/25/20 06/25/20 06/26/20 05:00 21:30 03:17 WBC 6.3 RBC 3.58 L Hgb 9.8 L Hct 32.6 L MCV 91.1 MCH 27.4 L MCHC 30.1 RDW 15.7 H Plt Count 275 MPV 10.4 Neut % (Auto) 62.7 Lymph % (Auto) 28.3 [place] % (Auto) 8.5 Eos % (Auto) 0.0 Baso % (Auto) 0.2 Neut # (Auto) 3.92 Lymph # (Auto) 1.8 [place] # (Auto) 0.5 Eos # (Auto) 0.0 Baso # (Auto) 0.0 Nucleated RBC % (auto) 0 Nucleated RBCs # 0.0 Sodium Potassium Chloride Carbon Dioxide Anion Gap BUN Creatinine GFR Calculation Glucose Calculated Osmolality Calcium Magnesium Iron TIBC % Saturation Unsat Iron Binding Transferrin Ferritin Total Bilirubin AST ALT Alkaline Phosphatase Total Protein Albumin Globulin Vitamin B12 Folate 16.1 SARS-CoV-2 Ag (Rapid) Negative 06/26/20 03:17 WBC RBC Hgb Hct MCV MCH MCHC RDW Plt Count MPV Neut % (Auto) Lymph % (Auto) [place] % (Auto) Eos % (Auto) Baso % (Auto) Neut # (Auto) Lymph # (Auto) [place] # (Auto) Eos # (Auto) Baso # (Auto) Nucleated RBC % (auto) Nucleated RBCs # Sodium 141 Potassium 4.9 Chloride 99 Carbon Dioxide 31 H Anion Gap 15.9 BUN 27 H Creatinine 2.0 H GFR Calculation 33.9 L Glucose 95 Calculated Osmolality 297 H Calcium 9.1 Magnesium 2.3 Iron TIBC % Saturation Unsat Iron Binding Transferrin Ferritin Total Bilirubin 0.4 AST 19 ALT 22 Alkaline Phosphatase 141 H Total Protein 6.7 Albumin 3.5 Globulin 3.2 Vitamin B12 Folate SARS-CoV-2 Ag (Rapid) Cardiac Studies: No Data to Display
--- NOTE | 2020-06-26 10:45 | P.PN_ITS ---
Subjective Subjective: Interval history: SOB has improved. Had good urine output on Doubtamine drip:He is net -3.6 Ls His other vitals and labs have been reviewed. Medications: Reviewed: Yes Vitals/I&O/Wt Last Vital Signs Temp 97.4 F L 06/26/20 08:00 Pulse 124 H 06/26/20 08:00 Resp 15 06/26/20 08:00 BP 95/65 06/26/20 08:45 Pulse Ox 95 06/26/20 08:00 06/25/20 06/26/20 06/26/20 22:59 06:59 14:59 Intake Total 572 / 1520.00 406.55 / 1926.55 Output Total 1450 / 2100 100 / 2200 425 / 425 Balance -878 / -580.00 306.55 / -273.45 -425 / -425 Physical Exam Const: COMMON NORMALS: patient oriented x3 HENMT: COMMON NORMALS: normocephalic and atraumatic HEAD & SCALP: normocephalic and atraumatic Chest: COMMONS NORMALS: normal inspection of the chest and normal palpation of entire chest wall CHEST: Yes Symmetrical chest wall rise Resp: COMMON NORMALS: normal respiratory effort, No retractions and No use of accessory muscles EFFORT & INSPECTION: Yes symmetric chest movement OTHER: B/L Basal crackles has improved.Diminish air entry at rt lung bases. Cardio: OTHER: S1S2 of Variable intensity. GI: COMMON NORMALS: Normal to inspection, nondistended, normoactive bowel sounds present, Soft to palpation, non-tender, No hepatosplenomegaly present and no masses AUSCULTATION: Yes normoactive bowel sounds PALPATION: Yes Soft to palpation and Yes No hepatosplenomegaly present RECTAL EXAM: Yes deferred Extremity: NARRATIVE EXTREMITY EXAM: Trace B/L L/E Pitting edema Neuro: COMMON NORMALS: patient oriented x3 Data : 06/26/20 03:17 06/26/20 03:17 A&P Assessment and plan (1) Acute exacerbation of CHF (congestive heart failure): Acute on chronic congestive heart failure exacerbation reduce ejection fraction ischemic cardiomyopathy has mitral and tricuspid valve regurgitation Chest x-ray showing recurrence of right-sided pleural effusion C.T Chest without Contrast: Small bilateral pleural effusions. RIGHT is slightly decreased in size. No change on the LEFT Bumex 2 mg I.V q12 h daily Dobutamine Drip @5mcg/kg/min I/O Charting Daily Weight Status: Acute (2) Atrial fibrillation with RVR: Post admission his heart rate was fluctuating between 110-120s atrial fibrillation/Flutter with RVR S/P OSVALDO Cardioversion on 06/26.Currently in NSR Initially on Amidarone 400 MG TID Now switched to 200 mg po daily. Metoprolol Succinate 100 MG PO BID Metoprolol.T 5 gm I.V Q4H PRN Digoxin 250 MCG PO Once Eliquis 5 MG Q12 H Daily Status: Acute (3) Anemia: Status: Acute (4) CKD (chronic kidney disease): Status: Acute (5) Elevated troponin: Status: Acute Additional A&P Information Coronary artery disease status post CABG with redo, no active chest pain no signs of acute exacerbation no AL or ACS Full code Cardiac diet DVT prophylaxsis;On Eliquis Attestations 2 Medical Necessity Statement*: Patient needs to be in hospital for the management of HF as well as A.fib Coding Level of Care Code Acute Display Designer for Chg Fwd Exam Detailed Diagnoses Acute exacerbation of CHF (congestive heart failure) I50.9 Atrial fibrillation with RVR I48.91 Anemia D64.9 CKD (chronic kidney disease) N18.9 Elevated troponin R77.8
--- NOTE | 2020-06-26 13:00 | USCV_ITS ---
Rikki Barron Age: 64 Gender: M : 1955 Exam Date: 06/26/2020 12:56 Ordering Phys: Shelly Perez MD ([email or web address]) Technologist: Jerome Deleon Exam Location: [facility] – [place] Indication: CHF, Atrial flutter BP: 103 / 58 HR: 127 Rhythm: Sinus Technical Quality: Fair MEASUREMENTS (Male / Female) Normal Values Medications Sedations by anesthesia. Refer to the report for full details Complications Intubation easy attempts x1. No blood on probe post procedure. No periprocedural or postprocedural complications. Proc. Components Multiple images were obtained at mid esophageal level. Transgastric images were not obtained given patient's low blood pressure. FINDINGS Left Ventricle Severely increased left ventricular cavity size. Severely decreased left ventricular systolic function. Left ventricular ejection fraction is estimated at 15-20 %. Severe global hypokinesis. Right Ventricle Mildly dilated left ventricular cavity with at least mildly decreased right ventricular systolic function. Right ventricular systolic pressure 31 mmHg. Right Atrium Mildly increased right atrial size. Left Atrium Severely increased left atrial size. LA Appendage Normal left atrial appendage. Decreased flow velocities in the left atrial appendage. No thrombus or spontaneous echo contrast visualized in the left atrial appendage. IA Septum Normal interatrial septum. No patent foramen ovale or atrial septal defect by color Doppler or agitated saline study. Mitral Valve Bioprosthetic mitral valve in situ. No valvular mitral valve regurgitation. Small perivalvular mitral regurgitation. Aortic Valve Mildly thickened trileaflet aortic valve. Mild to moderate aortic valve regurgitation. Tricuspid Valve s/p Tricuspid valve annuloplasty ring. No tricuspid valve stenosis. Moderate tricuspid valve regurgitation. Pulmonic Valve Structurally normal pulmonic valve. Trace pulmonary valve regurgitation. Pericardium No pericardial effusion. Aorta Normal size aortic root and proximal ascending aorta. Grade 2 atheroma noted in ascending aorta. No aortic aneurysm dilation or dissection. CONCLUSIONS 1. Severely increased left ventricular cavity size. Severely decreased left ventricular systolic function. Left ventricular ejection fraction is estimated at 15-20 %. Severe global hypokinesis. 2. Mildly dilated left ventricular cavity with at least mildly decreased right ventricular systolic function. 3. Bioprosthetic mitral valve in situ. Small perivalvular mitral regurgitation. 4. Mild to moderate aortic valve regurgitation. 5. S/p Tricuspid valve annuloplasty ring. Moderate tricuspid valve regurgitation. 6. No evidence of left atrial or left atrial appendage thrombus. Shelly Perez MD (Electronically Signed) Final Date: 30 June 2020 16:08 S
--- NOTE | 2020-06-26 13:03 | PM.PN ---
Subjective Subjective: Interval history: Patient feels some SOB, No events on telemetry. remains in A. flutter/fib in 110's -120's. Plan for OSVALDO/CV today. Medications: Reviewed: Yes Medication Review Details: Current Medications Albuterol Sulfate (Albuterol 8 Gm Mdi) 2 puff INHALATION Q4H PRN PRN Reason: Shortness Of Breath Albuterol/Ipratropium (Ipratropium-Albuterol 3 Ml Neb) 3 ml INHALATION Q4H PRN PRN Reason: SHORTNESS OF BREATH Last Admin: 06/26/20 07:55 Dose: 3 ml Documented by: Alprazolam (Alprazolam 0.25 Mg Tablet) 0.25 mg PO BID PRN PRN Reason: Anxiety Amiodarone HCl (Amiodarone 200 Mg Tablet) 200 mg PO DAILY [facility] Last Admin: 06/26/20 09:05 Dose: 200 mg Documented by: Apixaban (Apixaban 5 Mg Tablet) 5 mg PO BID@0800,2000 [facility] Last Admin: 06/26/20 07:38 Dose: 5 mg Documented by: Aspirin (Aspirin 81 Mg Ec Tablet) 81 mg PO DAILY@09 [facility] Last Admin: 06/26/20 09:05 Dose: 81 mg Documented by: Atorvastatin Calcium (Atorvastatin 40 Mg Tablet) 20 mg PO DAILY@18 [facility] Last Admin: 06/25/20 17:57 Dose: 20 mg Documented by: Bisacodyl (Bisacodyl 5 Mg Tablet) 5 mg PO DAILY PRN PRN Reason: Constipation Bumetanide (Bumetanide 0.25 Mg/Ml Sdv 10 Ml) 2 mg IV BID [facility] Last Admin: 06/26/20 09:03 Dose: 2 mg Documented by: Docusate Sodium (Docusate Sodium 100 Mg Capsule) 100 mg PO DAILY@08 [facility] Last Admin: 06/26/20 07:38 Dose: 100 mg Documented by: Hydromorphone HCl (Hydromorphone 4 Mg Tablet) 2 mg PO Q6H PRN PRN Reason: PAIN Last Admin: 06/25/20 20:37 Dose: 2 mg Documented by: Dobutamine HCl/Dextrose (Dobutamine Drip) 500 mg in 250 mls @ 15.908 mls/hr IV .[id number] [facility] Last Admin: 06/26/20 04:59 Dose: 5 mcg/kg/min, 15.9 mls/hr Documented by: Sodium Chloride (Sodium Chloride 0.9%) 1,000 mls @ 30 mls/hr IV .Q24H [facility] Stop: 06/27/20 22:04 Isosorbide Mononitrate (Isosorbide Mononitrate Er 30 Mg Tablet) 15 mg PO 1999 [facility] Last Admin: 06/25/20 20:39 Dose: 15 mg Documented by: Metoprolol Succinate (Metoprolol Succinate Er (24 Hr) 100 Mg Tablet) 100 mg PO BID [facility] Last Admin: 06/26/20 09:05 Dose: 100 mg Documented by: Metoprolol Tartrate (Metoprolol Tartrate 1 Mg/1 Ml Sdv 5 Ml) 5 mg IV PRN PRN PRN Reason: heart rate greater than 110 Last Admin: 06/24/20 06:32 Dose: 5 mg Documented by: Pantoprazole Sodium (Pantoprazole Dr 40 Mg Tablet) 40 mg PO BID@0800,1999 [facility] Last Admin: 06/26/20 07:38 Dose: 40 mg Documented by: Potassium Chloride (Potassium Chloride Er 20 Meq Tablet) 20 meq PO DAILY PRN PRN Reason: WITH LASIX Vitals/I&O/Wt Last Vital Signs Temp 98.2 F 06/26/20 11:18 Pulse 124 H 06/26/20 11:18 Resp 16 06/26/20 11:18 BP 98/64 06/26/20 11:18 Pulse Ox 97 06/26/20 11:18 06/25/20 06/26/20 06/26/20 22:59 06:59 14:59 Intake Total 572 / 1520.00 406.55 / 1926.55 Output Total 1450 / 2100 100 / 2200 925 / 925 Balance -878 / -580.00 306.55 / -273.45 -925 / -925 Physical Exam Narrative: EXAM NARRATIVE: Gen: Patient lying propped up in bed in NAD HEENT: PEERL, mild pallor, no icterus, elevated JVD CVS: S1, S2 irregular, tachycardia +, systolic murmur present in LLSB RS: decreased breath sounds at bilateral bases, intermittent rales diffusely 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 Status: Acute (2) Systolic heart failure: ACC/AHA Stage C-D Acute on chronic systolic CHF -LVEF 15-20% on echo; about the same as OSVALDO intraop. -I think he is getting decompensated in setting of A. fib with RVR. -Currently on metoprolol, No t on ACEI/ARB or ARNI given renal function and soft BP. -continue with Dobutamine and bumex in attempt to diurese. -Metolazone today -He has life vest at home. Status: Acute Qualifiers: Heart failure chronicity: acute on chronic Qualified Code(s): I50.23 - Acute on chronic systolic (congestive) heart failure (3) Atrial fibrillation: Remains in RVR -decrease amiodarone to 200 mg daily -on anticoagulation. s/p OSVALDO/CV with holiness of NSR. Status: Acute Qualifiers: Atrial fibrillation type: persistent (not longstanding) Qualified Code(s): I48.19 - Other persistent atrial fibrillation (4) Elevated troponin: In setting of decompensated CHF . -No delta change. Status: Resolved Additional A&P Information s/p Bio MVR : well seated, no significant regurgitation noted s/p tricuspid valve ring annuloplasty: residual moderate MR h/o PVC's Anemia CKD Emphysema h/o lung nodule Smoker Thank you for allowing me to participate in patient's care. Please feel free to call with questions or concerns Attestations Medical Necessity Statement*: Patient needs to be in hospital for the management of A.Fib with RVR as well as decompensated HF Time Spent in Patient Care: Greater than 35 minutes (>than 50% of time spent in counselling and/or direct pt care on unit). Critical Care Time: Critical Care Time (min): 40 Procedures Time out/Consent Time Out Performed: Yes Consent for Procedure: Consent obtained from patient, Risks & Benefits reviewed and Agrees to proceed with procedure Procedure Narrative OSVALDO Procedure note Indication: Symptomatic atrial flutter with rapid ventricular response Sedation: Propofol by anesthesia Procedure was explained to the patient in detail and informed consent was obtained. Timeout was called. After achieving adequate sedation, the probe was inserted on first attempt. No blood on the probe post procedure. Prelim report: Severely decreased left ventricle systolic function. No left atrial or left atrial appendage mass or thrombus visualized. No ASD or PFO identified. Full report to follow. Cardioversion procedure note. Indication: Symptomatic atrial flutter Anticoagulation: Eliquis Sedation: Propofol by anesthesia After ruling out left atrial and left atrial appendage thrombus or clot and ensuring adequate sedation, pads were placed anteroposteriorly. He received 150 J of synchronized biphasic shock ?1 with holiness of normal sinus rhythm. Patient tolerated the procedure well. Recovery: In unit Disposition: Patient to be discharged later today on current medications Coding Level of Care Code Acute Cardiovascular Surgical Tech for [facility] Diagnoses Shortness of breath R06.02 Systolic heart failure I50.23 Heart failure chronicity: acute on chronic Atrial fibrillation I48.19 Atrial fibrillation type: persistent (not longstanding) Elevated troponin R77.8
--- NOTE | 2020-06-26 13:51 | ECG_ITS ---
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 Measurements Intervals [place] Rate: 61 P: 41 MO: 193 QRS: -15 QRSD: 109 T: 99 QT: 433 QTc: 437 Interpretive Statements SINUS RHYTHM LEFT ATRIAL ENLARGEMENT [-0.15mV P WAVE IN V1/V2] NONSPECIFIC ST & T-WAVE ABNORMALITY Compared to ECG 06/22/2020 20:19:55 Atrial abnormality now present T-wave abnormality still present Electronically Signed On 06-27-2020 7:58:22 FOREPART RASPER by Shelly Perez M.D. [id number]
--- NOTE | 2020-06-26 14:00 | PC.NURSE ---
OSVALDO/CV Verbal order from Dr. Perez to pause dobutamine gtt during procedure. RBVO. 1320 Dobutamine gtt paused. 1323 Time out performed. 1324 Patient confirmed asleep. 1325 OSVALDO scope in. 1342 OSVALDO scope out. 1345 150 J shock delivered. Patient resumed NSR. 12 lead EKG obtained. 1355 Dobutamine gtt resumed. VSS, see flowsheet. Nurse to continue to monitor.
--- NOTE | 2020-06-26 15:32 | ANE.PACU2 ---
Inpatient post-anesthesia follow up: Airway intact: Yes Vital signs: Temperature 98.2 F Pulse Rate [Left] 122 Pulse Rate 124 Respiratory Rate 16 Blood Pressure [Le ft Arm] 117/72 Blood Pressure 98/64 Pulse Oximetry 97 Oxygen Delivery Me thod Room Air Oxygen Flow Rate 4 Fraction of Inspir ed Oxygen Hydration adequate: Yes Nausea and vomiting: No Pain level: 1 Mental status: Baseline
[2020-06-26] MEDS: atorvastatin 40 mg Tablet 20 MG PO (17:22)
--- NOTE | 2020-06-26 23:42 | PC.NURSE ---
PT RESTING IN BED. PT DENIES PAIN. PT STATES THAT THIS IS THE BEST THAT THEY HAVE FELT IN YEARS. PT IS ON A DOBUTAMINE DRIP AT 15.9ML/HR. WILL CONTINUE TO MONITOR.
[2020-06-27] VITALS (12 sets, daily range): BP systolic 99–115; BP diastolic 35–60; PULSE 64–73; RESP 12–21; TEMP 36.2–36.9; O2SAT 94–98
--- NOTE | 2020-06-27 04:45 | PC.NURSE ---
PT RESTING IN BED. PT DENIES PAIN AT THIS TIME. WILL CONTINUE TO MONITOR.
[2020-06-27 05:15] LABS: Anion Gap 14.5 (5-19); Blood Urea Nitrogen 29 mg/dL (8-23); Carbon Dioxide 34 mmol/L (22-29); Chloride 94 mmol/L (98-107); Chol HDL Ratio 3.77 mg/dL (1.0-5.00); Cholesterol 117 mg/dL (0-200); Glomerular Filtration Rate 32.1 mL/min (90-130); Glucose 87 mg/dL (65-115); HDL Cholesterol 31 mg/dL (60-100); LDL Cholesterol Calculated 55 mg/dL (50-129); LDL HDL Ratio 1.77 RATIO (0.00-3.22); Magnesium 2.2 mg/dL (1.7-2.3); NT Pro B Type Natriuretic Pept 4660 pg/mL (0-125); Osmolality Calculated 293 mOsm/kg (285-295); Potassium 3.5 mmol/L (3.5-5.1); Sodium 139 mmol/L (136-145); Triglycerides 157 mg/dL (0-150)
[2020-06-27] MEDS: bumetanide 0.25 mg/mL SDV 10 mL 2 MG IV ×2 (06:05→12:22)
--- NOTE | 2020-06-27 06:07 | XRR_ITS ---
PROCEDURE INFORMATION: Exam: XR Chest, 1 View Exam date and time: 06/27/2020 8:27 AM Age: 64 years old Clinical indication: Shortness of breath; Additional info: SOB, pleural effusion TECHNIQUE: Imaging protocol: XR of the chest Views: 1 view. COMPARISON: CT chest con [id number] 06/23/2020 11:14 AM FINDINGS: Lungs: Large loculated pleural fluid collection about the inferolateral aspect of the left hemithorax. Hyperinflation, interstitial prominence, and mild basilar airspace disease. Pleural spaces: small right pleural effusion. Heart/Mediastinum: Valve replacements and cardiomegaly. Bones/joints: Median sternotomy. Mild degenerative change. XR/XR chest 1V portable [id number] IMPRESSION: 1. Large loculated pleural fluid collection about the inferolateral aspect of the left hemithorax. 2. Additional findings as described above.
[2020-06-27] MEDS: pantoprazole DR 40 mg Tablet PO ×2 (08:46→20:45)
[2020-06-27] MEDS: aspirin 81 mg EC Tablet PO (08:46)
[2020-06-27] MEDS: apixaban 5 mg Tablet PO ×2 (08:46→20:46)
[2020-06-27] MEDS: metoprolol succinate ER (24 HR) 100 mg Tablet PO ×2 (08:47→17:47)
[2020-06-27] MEDS: isosorbide dinitrate 20 mg Tablet 5 MG PO ×3 (08:47→20:43)
[2020-06-27] MEDS: docusate sodium 100 mg Capsule PO (08:47)
[2020-06-27] MEDS: amiodarone 200 mg Tablet PO (08:47)
[2020-06-27] MEDS: hyDRALAzine 10 mg Tablet 5 MG PO ×3 (08:48→20:44)
--- NOTE | 2020-06-27 11:26 | P.PN_ITS ---
Subjective Subjective: Interval history: SOB has improved. Had good urine output on Doubtamine drip:He is net -4.8 Ls His other vitals and labs have been reviewed. Medications: Reviewed: Yes Medication Review Details: Current Medications Albuterol Sulfate (Albuterol 8 Gm Mdi) 2 puff INHALATION Q4H PRN PRN Reason: Shortness Of Breath Albuterol/Ipratropium (Ipratropium-Albuterol 3 Ml Neb) 3 ml INHALATION Q4H PRN PRN Reason: SHORTNESS OF BREATH Last Admin: 06/26/20 07:55 Dose: 3 ml Documented by: Alprazolam (Alprazolam 0.25 Mg Tablet) 0.25 mg PO BID PRN PRN Reason: Anxiety Amiodarone HCl (Amiodarone 200 Mg Tablet) 200 mg PO DAILY [facility] Last Admin: 06/26/20 09:05 Dose: 200 mg Documented by: Apixaban (Apixaban 5 Mg Tablet) 5 mg PO BID@0800,2000 [facility] Last Admin: 06/26/20 07:38 Dose: 5 mg Documented by: Aspirin (Aspirin 81 Mg Ec Tablet) 81 mg PO DAILY@09 [facility] Last Admin: 06/26/20 09:05 Dose: 81 mg Documented by: Atorvastatin Calcium (Atorvastatin 40 Mg Tablet) 20 mg PO DAILY@18 [facility] Last Admin: 06/25/20 17:57 Dose: 20 mg Documented by: Bisacodyl (Bisacodyl 5 Mg Tablet) 5 mg PO DAILY PRN PRN Reason: Constipation Bumetanide (Bumetanide 0.25 Mg/Ml Sdv 10 Ml) 2 mg IV BID [facility] Last Admin: 06/26/20 09:03 Dose: 2 mg Documented by: Docusate Sodium (Docusate Sodium 100 Mg Capsule) 100 mg PO DAILY@08 [facility] Last Admin: 06/26/20 07:38 Dose: 100 mg Documented by: Hydromorphone HCl (Hydromorphone 4 Mg Tablet) 2 mg PO Q6H PRN PRN Reason: PAIN Last Admin: 06/25/20 20:37 Dose: 2 mg Documented by: Dobutamine HCl/Dextrose (Dobutamine Drip) 500 mg in 250 mls @ 15.908 mls/hr IV .[id number] [facility] Last Admin: 06/26/20 04:59 Dose: 5 mcg/kg/min, 15.9 mls/hr Documented by: Sodium Chloride (Sodium Chloride 0.9%) 1,000 mls @ 30 mls/hr IV .Q24H [facility] Stop: 06/27/20 22:04 Isosorbide Mononitrate (Isosorbide Mononitrate Er 30 Mg Tablet) 15 mg PO 1999 [facility] Last Admin: 06/25/20 20:39 Dose: 15 mg Documented by: Metoprolol Succinate (Metoprolol Succinate Er (24 Hr) 100 Mg Tablet) 100 mg PO BID [facility] Last Admin: 06/26/20 09:05 Dose: 100 mg Documented by: Metoprolol Tartrate (Metoprolol Tartrate 1 Mg/1 Ml Sdv 5 Ml) 5 mg IV PRN PRN PRN Reason: heart rate greater than 110 Last Admin: 06/24/20 06:32 Dose: 5 mg Documented by: Pantoprazole Sodium (Pantoprazole Dr 40 Mg Tablet) 40 mg PO BID@0800,1999 [facility] Last Admin: 06/26/20 07:38 Dose: 40 mg Documented by: Potassium Chloride (Potassium Chloride Er 20 Meq Tablet) 20 meq PO DAILY PRN PRN Reason: WITH LASIX Vitals/I&O/Wt Last Vital Signs Temp 97.1 F L 06/27/20 11:00 Pulse 73 06/27/20 11:00 Resp 21 H 06/27/20 11:00 BP 106/51 06/27/20 11:00 Pulse Ox 97 06/27/20 11:00 06/26/20 06/27/20 06/27/20 22:59 06:59 14:59 Intake Total 459.235 / 592.000 360 / 360 Output Total 500 / 1925 775 / 2700 500 / 500 Balance -40.765 / -1333.000 -775 / -2108.000 -140 / -140 Physical Exam Const: COMMON NORMALS: patient oriented x3 HENMT: COMMON NORMALS: normocephalic and atraumatic HEAD & SCALP: normocephalic and atraumatic Chest: COMMONS NORMALS: normal inspection of the chest and normal palpation of entire chest wall CHEST: Yes Symmetrical chest wall rise Resp: COMMON NORMALS: normal respiratory effort, No retractions and No use of accessory muscles EFFORT & INSPECTION: Yes symmetric chest movement OTHER: B/L Basal crackles has improved.Diminish air entry at rt lung bases. Cardio: OTHER: S1S2 of Variable intensity. GI: COMMON NORMALS: Normal to inspection, nondistended, normoactive bowel sounds present, Soft to palpation, non-tender, No hepatosplenomegaly present and no masses AUSCULTATION: Yes normoactive bowel sounds PALPATION: Yes Soft to palpation and Yes No hepatosplenomegaly present RECTAL EXAM: Yes deferred Extremity: NARRATIVE EXTREMITY EXAM: Trace B/L L/E Pitting edema Neuro: COMMON NORMALS: patient oriented x3 Data : 06/26/20 03:17 06/27/20 03:57 A&P Assessment and plan (1) Acute exacerbation of CHF (congestive heart failure): Acute on chronic congestive heart failure exacerbation reduce ejection fraction ischemic cardiomyopathy has mitral and tricuspid valve regurgitation Chest x-ray showing recurrence of right-sided pleural effusion C.T Chest without Contrast: Small bilateral pleural effusions. RIGHT is slightly decreased in size. No change on the LEFT Currently compensated Bumex 2 mg I.V q12 h daily Hydralazine 5 MG PO TID ISDN 5 MG PO TID M.T 100 MG Q12 H Dobutamine Drip @5mcg/kg/min was stopped on 06/27 I/O Charting Daily Weight Status: Acute (2) Atrial fibrillation with RVR: Post admission his heart rate was fluctuating between 110-120s atrial fibrillation/Flutter with RVR S/P OSVALDO Cardioversion on 06/26.Currently in NSR Initially on Amidarone 400 MG TID Now switched to 200 mg po daily. Metoprolol Succinate 100 MG PO BID Metoprolol.T 5 gm I.V Q4H PRN Digoxin 250 MCG PO Once Eliquis 5 MG Q12 H Daily Status: Acute (3) Anemia: Status: Acute (4) CKD (chronic kidney disease): Status: Acute (5) Elevated troponin: Status: Acute Additional A&P Information Coronary artery disease status post CABG with redo, no active chest pain no signs of acute exacerbation no NM or ACS Full code Cardiac diet DVT prophylaxsis;On Eliquis Attestations Medical Necessity Statement*: Patient needs to be in hospital for the management of A.FIB/HF Coding Level of Care Code Acute Clinical Engineering Director for g Fwd Exam Detailed Diagnoses Acute exacerbation of CHF (congestive heart failure) I50.9 Atrial fibrillation with RVR I48.91 Anemia D64.9 CKD (chronic kidney disease) N18.9 Elevated troponin R77.8
[2020-06-27] MEDS: ondansetron 2 mg/ML SDV 2 mL 4 MG IVP (11:43)
[2020-06-27] MEDS: DOBUTamine drip 500 MG/250 ML PREMIX 15.9 MG IV (14:26)
--- NOTE | 2020-06-27 17:29 | PM.PN ---
Subjective Subjective: Interval history: Feeling better appear to be euvolemic Medications: Reviewed: Yes Medication Review Details: Current Medications Albuterol Sulfate (Albuterol 8 Gm Mdi) 2 puff INHALATION Q4H PRN PRN Reason: Shortness Of Breath Albuterol/Ipratropium (Ipratropium-Albuterol 3 Ml Neb) 3 ml INHALATION Q4H PRN PRN Reason: SHORTNESS OF BREATH Last Admin: 06/26/20 07:55 Dose: 3 ml Documented by: Alprazolam (Alprazolam 0.25 Mg Tablet) 0.25 mg PO BID PRN PRN Reason: Anxiety Amiodarone HCl (Amiodarone 200 Mg Tablet) 200 mg PO DAILY [facility] Last Admin: 06/26/20 09:05 Dose: 200 mg Documented by: Apixaban (Apixaban 5 Mg Tablet) 5 mg PO BID@0800,2000 [facility] Last Admin: 06/26/20 07:38 Dose: 5 mg Documented by: Aspirin (Aspirin 81 Mg Ec Tablet) 81 mg PO DAILY@09 [facility] Last Admin: 06/26/20 09:05 Dose: 81 mg Documented by: Atorvastatin Calcium (Atorvastatin 40 Mg Tablet) 20 mg PO DAILY@18 [facility] Last Admin: 06/25/20 17:57 Dose: 20 mg Documented by: Bisacodyl (Bisacodyl 5 Mg Tablet) 5 mg PO DAILY PRN PRN Reason: Constipation Bumetanide (Bumetanide 0.25 Mg/Ml Sdv 10 Ml) 2 mg IV BID [facility] Last Admin: 06/26/20 09:03 Dose: 2 mg Documented by: Docusate Sodium (Docusate Sodium 100 Mg Capsule) 100 mg PO DAILY@08 [facility] Last Admin: 06/26/20 07:38 Dose: 100 mg Documented by: Hydromorphone HCl (Hydromorphone 4 Mg Tablet) 2 mg PO Q6H PRN PRN Reason: PAIN Last Admin: 06/25/20 20:37 Dose: 2 mg Documented by: Dobutamine HCl/Dextrose (Dobutamine Drip) 500 mg in 250 mls @ 15.908 mls/hr IV .[id number] [facility] Last Admin: 06/26/20 04:59 Dose: 5 mcg/kg/min, 15.9 mls/hr Documented by: Sodium Chloride (Sodium Chloride 0.9%) 1,000 mls @ 30 mls/hr IV .Q24H [facility] Stop: 06/27/20 22:04 Isosorbide Mononitrate (Isosorbide Mononitrate Er 30 Mg Tablet) 15 mg PO 1999 [facility] Last Admin: 06/25/20 20:39 Dose: 15 mg Documented by: Metoprolol Succinate (Metoprolol Succinate Er (24 Hr) 100 Mg Tablet) 100 mg PO BID [facility] Last Admin: 06/26/20 09:05 Dose: 100 mg Documented by: Metoprolol Tartrate (Metoprolol Tartrate 1 Mg/1 Ml Sdv 5 Ml) 5 mg IV PRN PRN PRN Reason: heart rate greater than 110 Last Admin: 06/24/20 06:32 Dose: 5 mg Documented by: Pantoprazole Sodium (Pantoprazole Dr 40 Mg Tablet) 40 mg PO BID@799,1999 [facility] Last Admin: 06/26/20 07:38 Dose: 40 mg Documented by: Potassium Chloride (Potassium Chloride Er 20 Meq Tablet) 20 meq PO DAILY PRN PRN Reason: WITH LASIX Vitals/I&O/Wt Last Vital Signs Temp 97.1 F L 06/27/20 14:54 Pulse 68 06/27/20 14:54 Resp 17 06/27/20 14:54 BP 105/35 06/27/20 14:54 Pulse Ox 97 06/27/20 14:54 06/27/20 06/27/20 06/27/20 06:59 14:59 22:59 Intake Total 726.185 / 726.185 Output Total 775 / 2700 900 / 900 Balance -775 / -2108.000 -173.815 / -173.815 Physical Exam Narrative: EXAM NARRATIVE: GENERAL: Patient is alert, awake and oriented x3. NECK: No jugular vein distension. HEENT: No cyanosis. No icterus. No pallor. HEART: Regular S1 and S2. No murmur, rub or gallop. LUNGS: Clear to auscultate bilaterally. ABDOMEN: Soft, nontender and nondistended. Positive bowel sounds. No guarding, rebound or tenderness. CENTRAL NERVOUS SYSTEM: Grossly nonfocal. EXTREMITIES: Lower extremities without edema bilaterally. Data : 06/26/20 03:17 06/27/20 03:57 A&P Assessment and plan (1) Shortness of breath: Stable and improved. Status: Acute (2) Systolic heart failure: Currently compensated after cardioversion. Continue to diurese we will switch to p.o. from tomorrow may will discharge tomorrow. I will discontinue dobutamine. Status: Acute Qualifiers: Heart failure chronicity: acute on chronic Qualified Code(s): I50.23 - Acute on chronic systolic (congestive) heart failure (3) Atrial fibrillation: Patient has been converted to sinus rhythm with OSVALDO guided cardioversion continue amiodarone continue anticoagulation Status: Acute Qualifiers: Atrial fibrillation type: persistent (not longstanding) Qualified Code(s): I48.19 - Other persistent atrial fibrillation (4) Elevated troponin: Type II. Status: Resolved Additional A&P Information s/p Bio MVR : well seated, no significant regurgitation noted s/p tricuspid valve ring annuloplasty: residual moderate MR h/o PVC's Anemia CKD Emphysema h/o lung nodule Smoker Thank you for allowing me to participate in patient's care. Please feel free to call with questions or concerns Attestations Medical Necessity Statement*: Patient require continuation hospitalization for above defined care Coding Level of Care Code Established Pt Acute Demurrage Agent for Chg Fwd Patient Type Established History Detailed Exam Detailed Medical Decision Making Moderate Complexity Diagnoses Shortness of breath R06.02 Systolic heart failure I50.23 Heart failure chronicity: acute on chronic Atrial fibrillation I48.19 Atrial fibrillation type: persistent (not longstanding) Elevated troponin R77.8
[2020-06-27] MEDS: atorvastatin 40 mg Tablet PO (17:47)
--- NOTE | 2020-06-27 19:50 | PC.NURSE ---
PT IS RESTING IN BED. PT STATES THAT THEY ARE EXCITED ABOUT GOING HOME TOMORROW. PT IS CONCERNED ABOUT PT. PT DENIES PAIN AT THIS TIME. WILL CONTINUE TO MONITOR.
[2020-06-28 03:30] VITALS: BP 96/49; PULSE 63; RESP 17; TEMP 36.8; O2SAT 97
--- NOTE | 2020-06-28 04:18 | PC.NURSE ---
PT RESTING IN BED. PT STATES THAT THEY ARE EXCITED TO GO HOME. PT DENIES PAIN. WILL CONTINUE TO MONITOR.
[2020-06-28 04:29] LABS: Basophils % 0.2 %; Eosinophils % 0.2 %; Hemoglobin 10.7 g/dL (11.7-16.6); Lymphocytes # 1.3 10^3/uL (0.8-4.8); Lymphocytes % 22.3 %; Mean Corpuscular HGB Conc 31.5 g/dL (30.0-36.0); Mean Corpuscular Hemoglobin 27.2 pg (28.0-34.0); Mean Corpuscular Volume 86.3 fL (80-94); Mean Platelet Volume 10.2 fL (7.4-10.4); Monocytes # 0.5 10^3/uL (0.2-0.9); Monocytes % 8.4 %; Neutrophils % 68.6 %; Nucleated Red Blood Cells % 0 %; Platelet Count 276 10^3/cmm (130-400); Red Blood Count 3.94 10^6/uL (4.1-5.3); Red Cell Distribution Width 15.1 % (12.1-15.1); White Blood Count 5.8 10^3/uL (4.0-10.0)
[2020-06-28 04:51] LABS: Anion Gap 15.3 (5-19); Blood Urea Nitrogen 35 mg/dL (8-23); Calcium 9.1 mg/dL (8.5-10.5); Carbon Dioxide 34 mmol/L (22-29); Chloride 90 mmol/L (98-107); Glomerular Filtration Rate 28.9 mL/min (90-130); Glucose 88 mg/dL (65-115); Magnesium 2.3 mg/dL (1.7-2.3); Osmolality Calculated 289 mOsm/kg (285-295); Potassium 3.3 mmol/L (3.5-5.1); Sodium 136 mmol/L (136-145)
[2020-06-28 06:00] VITALS: PULSE 63
[2020-06-28] MEDS: bumetanide 0.25 mg/mL SDV 10 mL 2 MG IV (06:02)
[2020-06-28 07:15] VITALS: BP 122/66; PULSE 64; RESP 14; TEMP 35.8; O2SAT 98
[2020-06-28] MEDS: metoprolol succinate ER (24 HR) 100 mg Tablet PO (09:29)
[2020-06-28] MEDS: aspirin 81 mg EC Tablet PO (09:29)
[2020-06-28] MEDS: amiodarone 200 mg Tablet PO (09:29)
[2020-06-28] MEDS: potassium chloride ER 20 mEq Tablet PO (09:29)
[2020-06-28 09:30] VITALS: PULSE 68; RESP 16; O2SAT 96
[2020-06-28] MEDS: isosorbide dinitrate 20 mg Tablet 5 MG PO (09:30)
[2020-06-28] MEDS: pantoprazole DR 40 mg Tablet PO (09:31)
[2020-06-28] MEDS: apixaban 5 mg Tablet PO (09:31)
[2020-06-28] MEDS: hyDRALAzine 10 mg Tablet PO (09:34)
--- NOTE | 2020-06-28 10:00 | PC.SOCIAL ---
IMM Updated Updated pt on Pg 2 IMM. No questions voiced. Provided pt a copy. Signed, dated, & timed copy in chart.
[2020-06-28 10:56] VITALS: BP 96/54; PULSE 59; RESP 13; TEMP 36.6; O2SAT 97
--- NOTE | 2020-06-28 13:08 | P.DS_ITS ---
Discharge Providers Date of Admission: 06/23/20 18:13 Date of Discharge: June 28, 2020 Attending Provider at Admission: Fadumo Amado MD Attending Provider at Discharge: Joao Truong MD Primary Care Provider: Thee Sage Diagnoses at Discharge Discharge Diagnosis (1) Acute exacerbation of CHF (congestive heart failure): Status: Resolved (2) Atrial fibrillation with RVR: Status: Resolved Permanent problem details: Patient underwent OSVALDO Cardioversion and post that he remained in NSR (3) CKD (chronic kidney disease): Status: Acute Reason for Visit Reason for Visit: SOB/chest pain/post op Hospital Course Hospital Course 64 year old male who has history of ischemic cardiomyopathy EF 20% bioprosthetic mitral valve replacement, redo of CABG x3, was recently discharged from the hospital after management of atrial fibrillation RVR and heart failure exacerbation, he was discharged on Eliquis and Keflex for his venous thrombophlebitis was admitted from cardiology clinic for worsening shortness of breath Diagnostics in the ER revealed normal white count stable anemia high D- dimer 3.7, respiratory alkalosis with relative hypoxia BMP shows chronic kidney disease without acute worsening, BNP 12,000, TSH 7.9 I requested free T4 level, by the time I saw him patient was saturating well on 3 L nasal cannula was not complaining of orthopnea PND or chest pain. Patient felt better after getting IV Lasix 40 mg in the ER. Chest x-ray showing left sided effusion which seems to be loculated patient was not showing signs of sepsis, empyema. He was admitted for the management of Acute exacerbation of CHF 2/2 A.fib with RVR.During the hospital stay he was continued on I.V diuresis ( Bumex ) as well as he was also on dobutamine drip for the last few days of his hopital stay,he responded well and at the time of discharge he was euvolemic and was discharged on 60 mg po lasix BID,he was started on hydralazine 5 MG PO TID along with ISDN 5 MG TID.Hydralazine was increased to 10 mg po TID on discharge. For his A.fib with RVR he was continued on amidarone as well as M.T 100 MG BID also received a dose of digoxin 250 mcg po but he continued to be in A.fib/Flutter with RVR and finally had to be OSVALDO Cardioverted. Post Cardioversion he was in NSR. C.T Chest without contrast was done for evaluation of his pleural effusion, he has reaccumlation of rt pleural effusion as well as lt loculated effusion.Pleural effusion is likely a consequence of Heart failure, loculation on the left side is due to prior cardiac surgery resulting in adhesion.Patient has no signs of para pneumonic effusion or empyema. Patient responded well to the above medical management and is being discharged in stable condition he will follow Cardiology as outpatient. Physical Exam Const: COMMON NORMALS: patient oriented x3 HENMT: COMMON NORMALS: normocephalic and atraumatic HEAD & SCALP: normocephalic and atraumatic Chest: COMMONS NORMALS: normal inspection of the chest and normal palpation of entire chest wall CHEST: Yes Symmetrical chest wall rise Resp: COMMON NORMALS: normal respiratory effort, No retractions and No use of accessory muscles EFFORT & INSPECTION: Yes symmetric chest movement OTHER: Diminish air entry at rt lung bases. Cardio: COMMON NORMALS: regular rate, regular rhythm, S1 normal heart sound present, S2 normal heart sound present and No murmurs present (Cardio) RATE: regular rate RHYTHM: regular rhythm HEART SOUNDS: S1 normal heart sound present and S2 normal heart sound present GI: COMMON NORMALS: Normal to inspection, nondistended, normoactive bowel sounds present, Soft to palpation, non-tender, No hepatosplenomegaly present and no masses AUSCULTATION: Yes normoactive bowel sounds PALPATION: Yes Soft to palpation and Yes No hepatosplenomegaly present RECTAL EXAM: Yes deferred Extremity: NARRATIVE EXTREMITY EXAM: Trace B/L L/E Pitting edema Neuro: COMMON NORMALS: patient oriented x3 Discharge Data Data Completed and Pending: Completed Studies During Hospitalization Category Date Time Status CT chest wo con 7 1250 Routine Cat Scan 06/23/20 10:57 Completed XR chest 1V donaldo ble [id number] Routine Exams 06/27/20 06:07 Completed XR chest 1V donaldo ble [id number] Stat Exams 06/22/20 16:33 Completed Pending at discharge Category Date Time Status Basic Metabolic P kal AM LABS Lab 06/29/20 04:00 Ordered Complete Blood Co unt w/Auto AM LABS Lab 06/29/20 04:00 Ordered Magnesium AM LABS Lab 06/29/20 04:00 Ordered CV echo transesop hageal [id number] Routi ne Ultrasound 06/26/20 13:00 Taken Labs from last 24 hours 06/28/20 06/28/20 03:58 03:58 WBC 5.8 RBC 3.94 L Hgb 10.7 L Hct 34.0 L MCV 86.3 MCH 27.2 L MCHC 31.5 RDW 15.1 Plt Count 276 MPV 10.2 Neut % (Auto) 68.6 Lymph % (Auto) 22.3 Spencer % (Auto) 8.4 Eos % (Auto) 0.2 Baso % (Auto) 0.2 Neut # (Auto) 4.00 Lymph # (Auto) 1.3 Spencer # (Auto) 0.5 Eos # (Auto) 0.0 Baso # (Auto) 0.0 Nucleated RBC % (a uto) 0 Nucleated RBCs # 0.0 Sodium 136 Potassium 3.3 L Chloride 90 L Carbon Dioxide 34 H Anion Gap 15.3 BUN 35 H Creatinine 2.3 H GFR Calculation 28.9 L Glucose 88 Calculated Osmolal ity 289 Calcium 9.1 Magnesium 2.3 Vitals: Last Vital Signs Temp 97.8 F 06/28/20 10:56 Pulse 59 L 06/28/20 10:56 Resp 13 06/28/20 10:56 BP 96/54 06/28/20 10:56 Pulse Ox 97 06/28/20 10:56 Discharge Plan Discharge Patient Disposition: Home Condition: Stable Prescriptions: New hydralazine 10 mg Tablet 10 mg PO TID Qty: 90 RF: 5 isosorbide dinitrate 20 mg Tablet 5 mg PO TID Qty: 90 RF: 4 Continued aspirin [Adult Aspirin Regimen] 81 mg tablet,delayed release (DR/EC) 81 mg PO DAILY@09 RF: 0 tramadol 50 mg tablet 100 mg PO Q6H PRN (Reason: Pain) RF: 0 alprazolam 0.25 mg tablet 0.25 mg PO BID PRN (Reason: Anxiety) RF: 0 temazepam 30 mg capsule 30 mg PO BEDTIME PRN (Reason: Insomnia) RF: 0 docusate sodium 100 mg Capsule 100 mg PO DAILY@08 RF: 0 albuterol sulfate 90 mcg/actuation HFA aerosol inhaler 2 puff INHALATION Q4H PRN (Reason: Shortness Of Breath) RF: 0 bisacodyl 5 mg Tablet 5 mg PO DAILY PRN (Reason: Constipation) RF: 0 pantoprazole 40 mg tablet,delayed release (DR/EC) 40 mg PO BID@799,1999 RF: 0 apixaban 5 mg tablet 5 mg PO BID@799,1999 RF: 0 simvastatin 10 mg tablet 10 mg PO DAILY@18 Qty: 30 RF: 3 Changed Lasix 40 mg tablet 60 mg PO BID PRN (Reason: Edema) Qty: 60 RF: 4 Pacerone 200 mg tablet 200 mg PO DAILY Qty: 30 RF: 6 potassium chloride 10 mEq tablet extended release 20 meq PO DAILY Qty: 60 RF: 3 metoprolol succinate 25 mg tablet extended release 24 hr 100 mg PO BID@08,20 Qty: 0 RF: 0 Discontinued isosorbide mononitrate 30 mg tablet extended release 24 hr 15 mg PO BID@799,1999 RF: 0 cephalexin 500 mg capsule 500 mg PO QID@08,12,16,20 RF: 0 Discharge Orders: Discharge Order (Routine); Ordered 06/28/20 Ordered By: Joao Truong Referrals: Fadumo Dupree MD [Physician] - 1 month ([facility] will contact you to schedule an follow-up appointment in 1 month. If you haven't heard from them by Monday afternoon. Please call ) Sade Wadsworth FNP [Nurse Practitioner] - ([facility] will contact you to schedule an follow-up appointment in 1 week. If you haven't heard from them by Monday afternoon. Please call ) Discharge Diet: Cardiac Discharge Activity: Resume usual activity Patient Instructions: Isosorbide Dinitrate (By mouth), Hydralazine (By mouth), Heart Failure (DC), Atrial Fibrillation (DC), Chronic Kidney Disease (DC), Anemia (DC), CHF Stoplight Discharge Attestations Time Spent in Discharge Care*: greater than 30 min Specific Discharge Activities: educating patient, educating and/or supporting family/caregiver, discussing with pcp/other providers, discussing with disease case manager/social workers/dc planners, documenting/other paperwork and evaluating patient/reviewing data Status at Discharge: Cognitive status at discharge: cognitively intact , Behavioral status at discharge: cooperative , Functional status at discharge: independent ambulation Overall status at discharge: patient is back to baseline Quality Metrics Clinical Quality Measures During this hospital stay, did patient experience: None Coding Level of Care Code Acute Car Sales Consultant for Chg Fwd Exam Detailed Diagnoses Acute exacerbation of CHF (congestive heart failure) I50.9 Atrial fibrillation with RVR I48.91 CKD (chronic kidney disease) N18.9
[2020-06-28 13:22] VITALS: BP 96/54; PULSE 59; RESP 13; TEMP 36.6; O2SAT 97
--- NOTE | 2020-06-28 13:58 | PC.NURSE ---
discharge instructions given and explained.pt and spouse verb understanding of instructions.discharged via w/c to exit at this time.spouse to drive pt home.
== END 2020-06-28 13:57 | disposition home or self-care (01) | DRG 291 ==
LOC: ER 17:19 → CSU 06-23 08:12
PROVIDERS: Internal Medicine Cardiovascular Disease; Physician Assistant; Admitting Provider Internal Medicine; Emergency Provider Family Medicine; PCP Family Medicine; Visit Provider Internal Medicine
DX: I13.0 Hypertensive heart and chronic kidney disease with heart failure and stage 1 through stage 4 chronic kidney disease, or unspecified chronic kidney disease (principal); I50.23 Acute on chronic systolic (congestive) heart failure; I48.19 Other persistent atrial fibrillation; E87.2 Acidosis; I25.5 Ischemic cardiomyopathy; Z95.3 Presence of xenogenic heart valve; Z95.1 Presence of aortocoronary bypass graft; N18.9 Chronic kidney disease, unspecified; D63.1 Anemia in chronic kidney disease; I25.10 Atherosclerotic heart disease of native coronary artery without angina pectoris; G89.29 Other chronic pain; J43.9 Emphysema, unspecified; Z93.1 Gastrostomy status; I27.20 Pulmonary hypertension, unspecified; F17.210 Nicotine dependence, cigarettes, uncomplicated; Z79.51 Long term (current) use of inhaled steroids; Z79.82 Long term (current) use of aspirin; I08.3 Combined rheumatic disorders of mitral, aortic and tricuspid valves
CPT/HCPCS: 12345; 36415; 36600; 71045; 71250; 80048; 80053; 80061; 81003; 82607; 82728; 82746; 82805; 83540; 83550; 83605; 83735; 83880; 84439; 84443; 84466; 84484; 85025; 85378; 87426; 93005; 93312; 93320; 93325; 94640; 99282; G0378; J1250; J1940; J2405; J2704; J3490

== ENCOUNTER 2021-04-13 12:10 | Outpatient (CLI) | payer MEDICARE, MEDICAID, SELFPAY ==
--- NOTE | 2021-04-13 12:45 | US_ITS ---
WS: [id number] Abdominal ultrasound, limited. History: Evaluate for ascites. Comparison: None. All 4 quadrants are imaged by ultrasound to evaluate for ascites. There is no peritoneal fluid identi fied. US/US abdomen lmt fluid [id number] IMPRESSION: No peritoneal ascites.
== END 2021-04-13 12:11 | disposition home or self-care (01) ==
LOC: RAD 12:12
PROVIDERS: PCP Family Medicine; Visit Provider Internal Medicine Cardiovascular Disease
DX: R18.8 Other ascites (principal)
CPT/HCPCS: 76705

== ENCOUNTER 2021-06-09 12:52 | Outpatient (CLI) | payer MEDICARE, MEDICAID, SELFPAY ==
--- NOTE | 2021-06-09 13:15 | CT_ITS ---
WS: [id number] CT CHEST TECHNIQUE: Noncontrast CT of the chest with coronal and sagittal reformatted images. CLINICAL INFORMATION: Z95.1 - Presence of aortocoronary bypass graft COMPARISON: CT June 23, 2020 DLP: 984.[address] scans at [facility] use at least one of these dose optimization techniques: automated e xposure control; mA and/or kV adjustment per patient size (includes targeted exams where dose is matc hed to clinical indication); or iterative reconstruction. FINDINGS: Prior sternotomy with CABG. Slightly ectatic ascending thoracic aorta measuring 4.0 cm unch anged. Mild aortic calcification. Coronary calcification. Mild dehiscence with widening of the sterno lynda. No evidence of bony bridging. Widening measures up to 12 mm. Sternal wires appear grossly intac t. No retrosternal fluid collections. Moderate chronic emphysematous changes. No acute pulmonary infiltrates. No focal consolidation or ple ural fluid. Tiny right pleural effusion decreased from previous. Previously described pulmonary infil trates have improved. Noncalcified subpleural nodule right upper lobe measuring 3 mm. Additional noncalcified nodule right upper lobe centrally measuring 3.5 mm. Noncalcified nodule left upper lobe measuring 4 mm. A few selma tional 3 to 4 mm pulmonary nodules in the left lung. Right upper lobe nodules are stable compared to previous. Several nodules are obscured due to infiltrates in the prior examination. Recommend 6 month follow-up. No mediastinal or hilar lymphadenopathy. Aortic calcification. Prior sternotomy with CABG. Normal GE junction. Cholecystectomy clips. Right renal cyst measuring 3.5 cm. Smaller right upper pole renal cy st. Intrathecal catheter with tip in the mid thoracic spine. CT/CT chest wo con [id number] IMPRESSION: 1. Widening of the sternotomy is new since the prior examination with incomple te healing. No evidence of bony bridging between the sternotomy segments. Widen ing measures up to 12 mm new from previous. Previously described retrosternal f luid collection has resolved. 2. Several 3 to 4 mm noncalcified pulmonary nodules. Recommend 6-12 month foll ow-up. 3. No mediastinal or hilar lymphadenopathy. 4. Slightly ectatic ascending thoracic aorta measuring 4.0 cm unchanged. 5. Prior cholecystectomy. 6. Partially visualized renal cysts the largest measuring 3.5 CM.
== END 2021-06-09 12:53 | disposition home or self-care (01) ==
PROVIDERS: PCP Family Medicine; Visit Provider Internal Medicine Cardiovascular Disease
DX: Z95.1 Presence of aortocoronary bypass graft (principal); Q61.02 Congenital multiple renal cysts; Z90.49 Acquired absence of other specified parts of digestive tract; I77.810 Thoracic aortic ectasia; R91.8 Other nonspecific abnormal finding of lung field
CPT/HCPCS: 71250

== ENCOUNTER → 2021-10-06 10:31 | Outpatient (BNVA) | payer MEDICARE, MEDICAID, SELFPAY | PROVIDERS: PCP Family Medicine; Visit Provider Internal Medicine Cardiovascular Disease | DX: I50.20 Unspecified systolic (congestive) heart failure (principal); I48.20 Chronic atrial fibrillation, unspecified; Z79.01 Long term (current) use of anticoagulants; I34.0 Nonrheumatic mitral (valve) insufficiency; I36.1 Nonrheumatic tricuspid (valve) insufficiency; Z95.1 Presence of aortocoronary bypass graft; F17.210 Nicotine dependence, cigarettes, uncomplicated; N18.9 Chronic kidney disease, unspecified | CPT/HCPCS: 99214 ==

== ENCOUNTER 2021-11-02 09:16 | Outpatient (CLI) | payer MEDICARE, MEDICAID, SELFPAY ==
--- NOTE | 2021-11-02 10:00 | USCV_ITS ---
Rikki Barron Age: 65 Gender: M : 1955 Exam Date: 11/02/2021 09:54 Ordering Phys: Shelly Perez MD ([email or web address]) Technologist: JEREMIAH Exam Location: [place] Indication: CHF BP: 130 / 70 HR: 69 Rhythm: Sinus Technical Quality: Adequate MEASUREMENTS (Male / Female) Normal Values 2D ECHO LV Diastolic Diameter PLAX 5.8 cm 4.2 - 5.9 / 3.9 - 5.3 cm LV Systolic Diameter PLAX 5.2 cm IVS Diastolic Thickness 1.1 cm 0.6 - 1.0 / 0.6 - 0.9 cm IVS Systolic Thickness 1.5 cm LVPW Diastolic Thickness 1.3 cm 0.6 - 1.0 / 0.6 - 0.9 cm LVPW Systolic Thickness 1.5 cm LVOT Diameter 2.0 cm LV Ejection Fraction 2D Teich 23.5 % LV Ejection Fraction MOD 2C 29.4 % LV Ejection Fraction 2C AL 31.8 % LA Diameter 3.6 cm LA Width 4.3 cm LA Height 4.3 cm RA Width 3.7 cm RA Height 4.7 cm Aorta at Sinotubular Diameter 2.1 cm M-MODE Aortic Annulus Diameter 3.6 cm LA Ao Ratio MM 1.0 DOPPLER AV Peak Velocity 165.0 cm/s LVOT Peak Velocity 88.0 cm/s AV Area Cont Eq vti 1.9 cm squared AV Area Cont Eq pk 1.7 cm squared MV Peak Velocity 170.0 cm/s MV Area PHT 2.3 cm squared Mitral E to A Ratio 0.9 MV E' Velocity 94.0 cm/s Mitral E to MV E' Ratio 26.4 Mitral E to LV E' Lateral Ratio 21.0 Mitral E to LV E' Septal Ratio 36.2 TR Peak Velocity 257.4 cm/s TR Peak Gradient 26.5 mmHg TR Mean Velocity 187.8 cm/s TR Mean Gradient 16.0 mmHg TR Velocity Time Integral 75.1 cm TV Peak E Velocity 53.0 cm/s PV Peak Velocity 98.0 cm/s RV Acceleration Time 0.2 s RV Ejection Time 0.3 s RV AcT/ET 0.6 FINDINGS Left Ventricle Mildly increased left ventricular cavity size. Severely decreased left ventricular systolic function. Left ventricular ejection fraction is estimated at 20-25 %. Severe global hypokinesis with regional variation. Abnormal (paradoxical) septal motion consistent with postoperative status. Right Ventricle Upper normal right ventricle size with mildly to moderately decreased right ventricle systolic function. Right ventricular systolic pressure 30 mmHg. Right Atrium Normal right atrial size. Left Atrium Mildly increased left atrial size. Mitral Valve s/p Bioprosthetic 33 mm valve replacement. Bioprosthetic mitral valve in situ. Normal functioning with no significant valvular or perivalvular regurgitation. Mitral valve mean gradient 5 mmHg Aortic Valve Mildly thickened trileaflet aortic valve. Mild aortic valve regurgitation. Tricuspid Valve Structurally normal tricuspid valve. Trace to mild tricuspid valve regurgitation. Pulmonic Valve Pulmonic valve not well visualized. Trace pulmonary valve regurgitation. Pericardium No pericardial effusion. Aorta Normal size aortic root and proximal ascending aorta. IVC Inferior vena cava not visualized. CONCLUSIONS 1. Mildly increased left ventricular cavity size. Severely decreased left ventricular systolic function. Left ventricular ejection fraction is estimated at 20-25 %. Severe global hypokinesis with regional variation. 2. Upper normal right ventricle size with mildly to moderately decreased right ventricle systolic function. 3. s/p Bioprosthetic 33 mm valve replacement. No significant valvular or perivalvular regurgitation. Mitral valve mean gradient 5 mmHg. 4. Mild aortic valve regurgitation. 5. When compared to previous echocardiogram dated 06/18/2020, left ventricular systolic function may have improved slightly. Shelly Perez MD (Electronically Signed) Final Date: 05 November 2021 11:03 S
== END 2021-11-02 09:17 | disposition home or self-care (01) ==
LOC: RAD 09:17
PROVIDERS: PCP Family Medicine; Visit Provider Internal Medicine Cardiovascular Disease
DX: I50.22 Chronic systolic (congestive) heart failure (principal); I35.1 Nonrheumatic aortic (valve) insufficiency
CPT/HCPCS: 93306

== ENCOUNTER → 2021-11-17 10:29 | Outpatient (BNVA) | payer MEDICARE, MEDICAID, SELFPAY | PROVIDERS: PCP Family Medicine; Visit Provider Internal Medicine Cardiovascular Disease | DX: I50.20 Unspecified systolic (congestive) heart failure (principal); I48.20 Chronic atrial fibrillation, unspecified; I34.0 Nonrheumatic mitral (valve) insufficiency; I36.1 Nonrheumatic tricuspid (valve) insufficiency; Z95.1 Presence of aortocoronary bypass graft; F17.218 Nicotine dependence, cigarettes, with other nicotine-induced disorders; N18.9 Chronic kidney disease, unspecified; T81.32XA Disruption of internal operation (surgical) wound, not elsewhere classified, initial encounter; Z79.01 Long term (current) use of anticoagulants | CPT/HCPCS: 99214 ==

== ENCOUNTER → 2021-12-09 12:51 | Outpatient (BNVA) | payer MEDICARE, MEDICAID, SELFPAY | PROVIDERS: PCP Family Medicine; Visit Provider Thoracic Surgery (Cardiothoracic Vascular Surgery) | DX: I42.9 Cardiomyopathy, unspecified (principal); Z95.1 Presence of aortocoronary bypass graft | CPT/HCPCS: 99213 ==

== ENCOUNTER → 2021-12-16 13:43 | Outpatient (BNVA) | payer MEDICARE, MEDICAID, SELFPAY | PROVIDERS: PCP Family Medicine; Visit Provider Internal Medicine Cardiovascular Disease | DX: I50.22 Chronic systolic (congestive) heart failure (principal); I48.91 Unspecified atrial fibrillation; I34.0 Nonrheumatic mitral (valve) insufficiency; I36.1 Nonrheumatic tricuspid (valve) insufficiency; Z95.1 Presence of aortocoronary bypass graft; F17.218 Nicotine dependence, cigarettes, with other nicotine-induced disorders | CPT/HCPCS: 99214 ==

== ENCOUNTER 2021-12-28 09:24 | Observation (INO) | payer MEDICARE, MEDICAID, SELFPAY ==
[2021-12-23 09:49] LABS: Basophils # 0.1 10^3/uL (0.0-0.1); Basophils % 0.7 %; Eosinophils # 0.1 10^3/uL (0.0-0.8); Eosinophils % 1.3 %; Hemoglobin 15.2 g/dL (11.7-16.6); Lymphocytes # 1.3 10^3/uL (0.8-4.8); Lymphocytes % 18.8 %; Mean Corpuscular HGB Conc 30.4 g/dL (30.0-36.0); Mean Corpuscular Hemoglobin 29.7 pg (28.0-34.0); Mean Corpuscular Volume 97.8 fl (80-94); Monocytes # 0.5 10^3/uL (0.2-0.9); Monocytes % 7.7 %; Neutrophils # 4.74 10^3/uL (1.8-7.7); Neutrophils % 70.8 %; Nucleated Red Blood Cells % 0.3 %; Platelet Count 190 10^3/cmm (130-400); Red Blood Count 5.11 10^6/uL (4.1-5.3); White Blood Count 6.7 10^3/uL (4.0-10.0)
[2021-12-23 09:52] LABS: Add Urine Microscopic? NO; Charge for UA Resulting for Rev
[2021-12-23 09:59] LABS: Bilirubin Urine Neg (Negative); Blood Urine Neg (Negative); Glucose Urine UA Norm (Normal); Ketones Urine Negative (Negative); Leukocyte Esterase Urine Negative (Negative); Nitrate Urine Negative (Negative); Protein Urine Neg (Negative); Sulfosalicylic Acid Urine Negative (Negative); Urine Appearance Clear (CLEAR); Urine Color Yellow (Yellow); Urobilinogen Urine Norm (Negative); pH Urine 5 (5-7)
--- NOTE | 2021-12-23 10:14 | ECG_ITS ---
[facility] Test Date: 2021-12-23 Pat Name: Rikki Barron Department: Room: Gender: Male Mobility Architect: : 1955 Requested By: Gordy Tate Order Number: [id number] Lety MD: Jean Paul Cortez M.D. Measurements Intervals [place] Rate: 72 P: 20 AR: 163 QRS: 19 QRSD: 101 T: -2 QT: 405 QTc: 443 Interpretive Statements SINUS RHYTHM MODERATE ST DEPRESSION [0.05+ mV ST DEPRESSION] Compared to ECG 06/26/2020 13:56:48 ST (T wave) deviation now present Atrial abnormality no longer present T-wave abnormality no longer present Electronically Signed On 12-23-2021 14:28:13 CDT by Jean Paul Cortez M.D. [email or web address]
[2021-12-23 10:19] LABS: Blood Urea Nitrogen 20 mg/dL (8-23); Calcium 9.1 mg/dL (8.5-10.5); Carbon Dioxide 18 mmol/L (22-29); Chloride 101 mmol/L (98-107); Glomerular Filtration Rate 35.8 mL/min (90-130); Glucose 97 mg/dL (65-115); Osmolality Calculated 277 mOsm/kg (285-295); Sodium 132 mmol/L (136-145)
--- NOTE | 2021-12-23 10:29 | P.ANESASSM_ITS ---
Pre-Anesthetic Assessment Height/Weight: Height 1.8 m Weight 125.645 kg Preop Diagnosis: A fib w/ RBR Operation Date: 12/28/21 09:05 Proposed Procedures p Defibrillator Placement/cardio myopathy(Not Applicable) - Cameron Serrano MD Familial anesthetic complications: None Was Beta Nabil taken within 24 hours: Yes Was Clonidine taken within 24 hours: N/A Social Tobacco and No alcohol Exam alert, oriented x 3 and regular rate & rhythm Airway Submandibular: within normal limits Cervical ROM: within normal limits Mallampati: Class II Pulmonary Chronic Obstructive Pulmonary Disease and Sleep Apnea CV/HEM Arrythmia, Coronary Artery Disease (CABG), Congestive Heart Failure (EF 20-25%) and Hypertension Mitral valve replacement Chronic Renal Insufficiency GI Gastroesophageal Reflux Disease Metabolic Hyperlipidemia and Morbid Obesity [facility] Lower Back Pain pain pump Anesthetic Plan ASA status: 4 Anesthesia: Choice Medications/Allergies Home Medications Medication Instructions Recorded Confirmed Last Taken Type aspirin 81 mg tablet,delayed 81 mg PO DAILY@09 11/04/19 12/23/21 12/23/21 History release (Adult Aspirin Regimen) albuterol sulfate 90 mcg/actuation 2 puff inhalation Q4H PRN 06/08/20 12/23/21 06/22/20 History aerosol inhaler Shortness Of Breath bisacodyl 5 mg tablet 5 mg PO DAILY PRN Constipation 06/08/20 12/23/21 Unknown History temazepam 30 mg capsule (Restoril) 30 mg PO BEDTIME PRN Insomnia 06/08/20 12/23/21 06/07/20 History levocetirizine 5 mg tablet (Xyzal) 5 mg PO DAILY 09/28/20 12/23/21 Unknown History simvastatin 10 mg tablet 10 mg PO DAILY@18 #90 tabs 07/07/21 12/23/21 Unknown Rx potassium chloride 20 mEq 20 meq PO DAILY 10/06/21 12/23/21 Unknown History tablet,extended release hydralazine 10 mg tablet 10 mg PO TID #270 tabs 11/17/21 12/23/21 Unknown Rx multivitamin 1 tab PO DAILY 11/17/21 12/23/21 Unknown History furosemide 80 mg tablet 40 mg PO DAILY Edema 12/09/21 12/23/21 Unknown History amiodarone 200 mg tablet 200 mg PO DAILY 12/23/21 12/23/21 Unknown History apixaban 5 mg tablet (Eliquis) 5 mg PO BID@0800,199912/23/21 12/23/21 12/23/21 History metoprolol succinate 100 mg 150 mg PO DAILY 12/23/21 12/23/21 Unknown History tablet,extended release 24 hr (Toprol XL) pantoprazole 40 mg tablet,delayed 40 mg PO BID@0800,199912/23/21 12/23/21 Unknown History release (Protonix) spironolactone 25 mg tablet 12.5 mg PO DAILY 12/23/21 12/23/21 Unknown History (Aldactone) Allergies Allergy/AdvReac Type Severity Reaction Status Date / Time codeine Allergy Severe ADR-Agitate Verified 12/09/21 13:00 d morphine Allergy Severe ALGY-Difficulty Verified 12/09/21 13:00 Breathing acetaminophen [From Tylenol] AdvReac Severe ADR-Agitate Verified 12/09/21 13:00 d [facility] Anesthesia Medical History (Updated 12/16/21 @ 18:46 by Shelly Perez MD) Acute exacerbation of CHF (congestive heart failure) Anemia ASHD (arteriosclerotic heart disease) Atrial fibrillation Atrial fibrillation with RVR Patient underwent OSVALDO Cardioversion and post that he remained in NSR CAD (coronary artery disease) Worsening of shortness of breath along with chest pressure in the patient with history of extensive coronary disease and bypass surgery Chronic headaches Chronic kidney disease Chronic pain CKD (chronic kidney disease) Elevated troponin Emphysema of lung Irritation around percutaneous endoscopic gastrostomy (PEG) tube site LV dysfunction Mitral valve regurgitation Pulmonary hypertension Pulmonary nodule Shortness of breath Systolic heart failure Tricuspid valve regurgitation Surgical History Previous back surgery S/P CABG (coronary artery bypass graft) S/P insertion of intrathecal pump S/P wrist surgery Family History Other Heart disease Stroke Social History Smoking and tobacco status: current every day smoker cigarettes Packs smoked per day: 1.5 Years cigarettes smoked: 40 Quit status (tobacco): has tried quititng Alcohol intake: never Lives independently: Yes Household members: spouse Marital status: Current occupational status: disabled History of recent travel: No Current gender identity: Male Data Anesthesia : 12/23/21 09:40 12/23/21 09:40 Short CBC 12/23/21 Range/Units 09:40 WBC 6.7 (4.0-10.0) 10^3/uL Hgb 15.2 (11.7-16.6) g/dL Hct 50.0 (42.0-52.0) % MCV 97.8 H (80-94) fl Plt Count 190 (130-400) 10^3/cmm Neut % (Auto) 70.8 % Neut # (Auto) 4.74 (1.8-7.7) 10^3/uL BMP 12/23/21 09:40 Sodium 132 L Potassium 5.0 Chloride 101 Carbon Dioxide 18 L BUN 20 Creatinine 1.9 H Glucose 97 Calcium 9.1 Urine 12/23/21 Range/Units 08:43 Urine Color Yellow (Yellow) Urine Appearance Clear (CLEAR) Urine pH 5 (5-7) Ur Specific [place] 1.020 (1.005-1.030) Urine Protein Neg (Negative) Urine Glucose (UA) Norm (Normal) Urine Ketones Negative (Negative) Urine Nitrate Negative (Negative) Urine Bilirubin Neg (Negative) Ur Leukocyte Esterase Negative (Negative) Cardiac Studies: Echocardiogram 11/02/21 Echocardiogram Ultrasound 06/08/20 Transesophageal Echocardiogram 06/26/20 Sestamibi Stress Test (Cardiology) 11/25
[2021-12-28] VITALS (15 sets, daily range): BP systolic 91–151; BP diastolic 50–77; PULSE 64–83; RESP 14–18; TEMP 36.2–36.6; O2SAT 90–100
--- NOTE | 2021-12-28 | SCC_ITS ---
Procedure done: Automatic implantable cardiac defibrillator implantation 194.2 seconds of fluoroscopic guidance, for a cumulative dose of 77.60 mGy, was provided to Dr. Serrano by the radiology department. C-arm images of the chest were saved for the patient's permanent record. [facility]
--- NOTE | 2021-12-28 08:06 | SC_ITS ---
WS: [id number] C-arm FL for Pacemaker REASON FOR EXAM: Defibrillator implantation FINDINGS: Distal end of the lead can be identified overlying the apex of the cardiac silhouette. SC/C-arm FL for Pacemaker IMPRESSION: Defibrillator lead placement placement as above.
[2021-12-28] MEDS: sodium chloride 0.9% 1,000 ML 30 ML IV (09:07)
--- NOTE | 2021-12-28 09:11 | P.ANESUD_ITS ---
Pre-Anesthetic Update Pre-Anesthetic Assessment: Date of Surgery/Procedure: 12/28/21 Preop Laurie gnosis: Cardiomyopathy Proposed Procedure: Operation Date: 12/28/21 09:50 Proposed Procedures p Defibrillator Placement/cardio myopathy(Not Applicable) - Cameron Serrano MD Any changes to Pre-Anesthetic Assessment?: No Last Intake: Intake Last Liquid Date 12/27/21 Last Liquid Time 23:00 Last Solid Date 12/27/21 Last Solid Time 23:00 Vitals: Temperature 97.4 F L 12/28/21 08:30 Temperature Source Temporal Artery S can 12/28/21 08:30 Pulse Rate 81 12/28/21 08:30 Respiratory Rate 18 12/28/21 08:30 Blood Pressure 151/77 12/28/21 08:30 Blood Pressure Malou n 101 12/28/21 08:30 Pulse Oximetry 98 12/28/21 08:30 Oxygen Delivery Me thod 12/28/21 08:35 Exam: Pre-Anes Outpt Exam: alert, oriented x 3, clear to auscultation bilaterally and regular rate & rhythm Cardiac Studies: Echocardiogram 11/02/21 Echocardiogram Ultrasound 06/08/20 Transesophageal Echocardiogram 06/26/20 Sestamibi Stress Test (Cardiology) 11/25 Anesthesia Procedures Other Information: Patient hx of difficult IV. After sterile prep and using real time US guidance for vessel selection a 18 g PIV was inserted with real time visualization of needle entry and real time visualization of catheter advancement. Tolerated well. 1 attempt.
--- NOTE | 2021-12-28 09:50 | W.PM.OPSUD ---
Surgery/Procedure H&P Update DATE OF PROCEDURE: December 28, 2021 DATE H&P PERFORMED: 12/09/21 H&P UPDATE INFORMATION: I have reviewed H&P completed within last 30 days, I have examined patient prior to procedure and No changes to prior documentation PREOP DIAGNOSIS: Cardiomyopathy PLANNED PROCEDURE: Operation Date: 12/28/21 09:50 Proposed Procedures p Defibrillator Placement/cardio myopathy(Not Applicable) - Cameron Serrano MD
[2021-12-28] MEDS: ceFAZolin 2,000 MG in sodium chloride 0.9% (plus) 50 ML 100 MG IV (10:20)
[2021-12-28] MEDS: ceFAZolin 1,000 mg SDV 1000 MG IRRIGATION (11:05)
[2021-12-28] MEDS: lidocaine 2% INJ 20 mL INJECTION (11:20)
--- NOTE | 2021-12-28 12:35 | PM.OP ---
Operative Report Date of procedure: December 28, 2021 Pre-op diagnosis: Preop Diagnosis medically refractory cardiomyopathy Post-op diagnosis: same Procedure done: Automatic implantable cardiac defibrillator implantation Implants: AICD generator Right ventricular lead Pathology: none sent Surgeon: Cameron Serrano Anesthesia: Local and Other (Laryngeal mask anesthesia) Complications: None: Post procedure chest x-ray pending Condition: stable Disposition: PACU Brief History: Pleasant 66-year-old gentleman with medically refractory cardiomyopathy with documented ejection fraction of 20 to 25%. He has had prior sternotomies x2 including CABG x1 and initial setting followed by CABG x3 along with bioprosthetic mitral valve replacement and tricuspid valve annuloplasty. Due to his medical refractory cardiomyopathy, AICD has been recommended by Dr. Perez. Details of risk of procedure were carefully and frankly discussed. Appropriate signs have been reviewed and signed. Procedure: Procedure: Mr. Barron was taken to the OR suite and placed in the supine position over a shoulder roll. He received conscious sedation with continuous anesthesia monitoring by. He is entire chest was sterilely prepped and draped. 1% lidocaine was infiltrated in the left subclavicular region. While in Trendelenburg position, utilizing modified seldinger technique, a guidewire was placed in the [left/right] subclavian vein. This was confirmed in position by fluoroscopy. Next, after infiltration with lidocaine, a subcutaneous pocket was created beginning from the exit point of the guidewire and extending laterally and inferiorly. Cautery was utilized to create the pocket just above the pectoralis musculature. Hemostasis was confirmed. An antibiotic-soaked sponge was placed in the wound. A dilator and tear-away sheath was placed over the guidewire and advanced under fluoroscopy. Guidewire and dilator were removed. Next using a combination of curved and straight stylettes, the right ventricular lead was placed in position by fluoroscopy. The distal screw was extended. Interrogation was then performed confirming appropriate parameters. The tear-away sheath was then removed and the ventricular lead was sewn to the floor of the subcutaneous pocket. Attempt at atrial lead fixation in the right atrial was not successful with low P wave values and high thresholds. This may well be related to his 2 previous open cardiac surgeries. As of the time of the procedure, he was in sinus rhythm throughout the case, therefore we elected not to continue with anesthesia and further attempts for atrial lead placement given what appeared to be a low likely matos of success. Generator was brought into the field, and after confirmation of hemostasis in the subcutaneous pocket, the lead was connected to the generator with appropriate capture. The entire system was interrogated by fluoroscopy. Lead and generator were secured in the pocket. Sponge and needle count was correct. The wound was then closed in 2 layers of 3-0 Vicryl suture. Skin was reapproximated in a subcuticular manner with 4-0 Monocryl suture. A pressure dressing was applied. The left arm was placed in a sling. The patient had equal breath sounds bilaterally. Mr. Barron was then transferred to the PACU, where chest x-ray is currently pending. I did certified genetic counselor with the family at the completion of the procedure. Following are the specifics of this system: Right ventricular lead is 62 cm and model 6935M. Serial number [id number] Ventricular lead had sensing of 3.75 mV with an impedance of 817 ohms. Threshold was 0.75 V Promon AICD generator: Model # [id number] Serial # [id number]
--- NOTE | 2021-12-28 15:00 | ANE.PACU2 ---
Inpatient post-anesthesia follow up: Airway intact: Yes Vital signs: Temperature 97.2 F Pulse Rate 64 Respiratory Rate 16 Blood Pressure 112/72 Pulse Oximetry 92 Oxygen Delivery Me thod Room Air Oxygen Flow Rate 6 Fraction of Inspir ed Oxygen Hydration adequate: Yes Nausea and vomiting: No Pain level: 1 Mental status: Baseline
[2021-12-28] MEDS: atorvastatin 40 mg Tablet 20 MG PO (17:33)
[2021-12-28] MEDS: ceFAZolin 1,000 MG in sodium chloride 0.9% (plus) 50 ML 100 MG IV (18:20)
[2021-12-28] MEDS: hyDRALAzine 10 mg Tablet PO (21:02)
[2021-12-29 00:43] VITALS: BP 120/63; PULSE 68; RESP 18; TEMP 36.7; O2SAT 93
[2021-12-29] MEDS: ceFAZolin 1,000 MG in sodium chloride 0.9% (plus) 50 ML 100 MG IV (02:35)
[2021-12-29 05:00] VITALS: BP 108/65; PULSE 76; RESP 18; O2SAT 94
--- NOTE | 2021-12-29 06:39 | P.DS_ITS ---
Discharge Providers Date of Admission: 12/28/21 09:24 Date of Discharge: December 29, 2021 Attending Provider at Admission: Cameron Serrano MD Attending Provider at Discharge: Cameron Serrano MD Primary Care Provider: Thee Sage Reason for Visit Reason for Visit: cardiomyopathy Hospital Course Hospital Course Mr. Barron is a 66-year-old gentleman with medically refractory cardiomyopathy and an ejection fraction of 20 to 25% on echocardiogram of November 02. He has had prior cardiac surgery x2 including CABGs and mitral valve replacement along with tricuspid valve angioplasty. Because of the severe cardiac dysfunction, prophylactic AICD has been recommended. He has a history of chronic atrial fibrillation on Eliquis for prophylaxis. He is electively admitted for planned AICD placement. The time of his presentation, he was in sinus rhythm. He underwent defibrillator implantation with a single lead. Attempt at atrial lead placement was performed during the procedure though he had very low P wave amplitude and high atrial capture thresholds, therefore it was elected to leave the device as a single RV lead. Postoperative, he has received prophylactic antibiotics. Surgical site is clean and dry. No substantial swelling noted. Vital signs are stable. Post implantation interrogation reveals good device function. He will be discharged home today in stable condition. Physical Exam Chest: COMMONS NORMALS: normal inspection of the chest and normal palpation of entire chest wall OTHER: Mild tenderness at the insertion site. Resp: COMMON NORMALS: normal respiratory effort, No retractions and clear to auscultation bilaterally AUSCULTATION: clear to auscultation bilaterally Cardio: COMMON NORMALS: regular rate and regular rhythm RATE: regular rate RHYTHM: regular rhythm Discharge Data Studies Completed and Pending Pending at discharge Category Date Time Status C-arm FL for Pacemaker Routine Exams 12/28/21 08:06 Taken Laboratory Results WBC 6.7 10^3/uL (4.0-10.0) 12/23/21 09:40 RBC 5.11 10^6/uL (4.1-5.3) 12/23/21 09:40 Hgb 15.2 g/dL (11.7-16.6) 12/23/21 09:40 Hct 50.0 % (42.0-52.0) 12/23/21 09:40 MCV 97.8 fl (80-94) H 12/23/21 09:40 MCH 29.7 pg (28.0-34.0) 12/23/21 09:40 MCHC 30.4 g/dL (30.0-36.0) 12/23/21 09:40 RDW 15.0 % (12.1-15.1) 12/23/21 09:40 Plt Count 190 10^3/cmm (130-400) 12/23/21 09:40 MPV 11.0 fL (7.4-10.4) H 12/23/21 09:40 Neut % (Auto) 70.8 % 12/23/21 09:40 Lymph % (Auto) 18.8 % 12/23/21 09:40 [place] % (Auto) 7.7 % 12/23/21 09:40 Eos % (Auto) 1.3 % 12/23/21 09:40 Baso % (Auto) 0.7 % 12/23/21 09:40 Neut # (Auto) 4.74 10^3/uL (1.8-7.7) 12/23/21 09:40 Lymph # (Auto) 1.3 10^3/uL (0.8-4.8) 12/23/21 09:40 [place] # (Auto) 0.5 10^3/uL (0.2-0.9) 12/23/21 09:40 Eos # (Auto) 0.1 10^3/uL (0.0-0.8) 12/23/21 09:40 Baso # (Auto) 0.1 10^3/uL (0.0-0.1) 12/23/21 09:40 Nucleated RBC % (auto) 0.3 % 12/23/21 09:40 Nucleated RBCs # 0.0 /100WBC 12/23/21 09:40 Sodium 132 mmol/L (136-145) L 12/23/21 09:40 Potassium 5.0 mmol/L (3.5-5.1) 12/23/21 09:40 Chloride 101 mmol/L (98-107) 12/23/21 09:40 Carbon Dioxide 18 mmol/L (22-29) L 12/23/21 09:40 Anion Gap 18.0 (5-19) 12/23/21 09:40 BUN 20 mg/dL (8-23) 12/23/21 09:40 Creatinine 1.9 mg/dL (0.7-1.2) H 12/23/21 09:40 GFR Calculation 35.8 mL/min (90-130) L 12/23/21 09:40 Glucose 97 mg/dL (65-115) 12/23/21 09:40 Calculated Osmolality 277 mOsm/kg (285-295) L 12/23/21 09:40 Calcium 9.1 mg/dL (8.5-10.5) 12/23/21 09:40 Urine Color Yellow (Yellow) 12/23/21 08:43 Urine Appearance Clear (CLEAR) 12/23/21 08:43 Urine pH 5 (5-7) 12/23/21 08:43 Ur Specific [place] 1.020 (1.005-1.030) 12/23/21 08:43 Urine Protein Neg (Negative) 12/23/21 08:43 Urine Glucose (UA) Norm (Normal) 12/23/21 08:43 Urine Ketones Negative (Negative) 12/23/21 08:43 Urine Blood Neg (Negative) 12/23/21 08:43 Urine Nitrate Negative (Negative) 12/23/21 08:43 Urine Bilirubin Neg (Negative) 12/23/21 08:43 Prot Sulfosalicylic Acd Negative (Negative) 12/23/21 08:43 Urine Urobilinogen Norm mg/dL (Negative) 12/23/21 08:43 Ur Leukocyte Esterase Negative (Negative) 12/23/21 08:43 Procedures Performed AICD implantation on December 28, 2021 Vitals Last Vital Signs Temp 98.0 F 12/29/21 00:43 Pulse 76 12/29/21 05:00 Resp 18 12/29/21 05:00 BP 108/65 12/29/21 05:00 Pulse Ox 94 12/29/21 05:00 O2 Del Method 12/28/21 20:00 O2 Flow Rate 6 12/28/21 12:20 Discharge Plan Discharge Patient Disposition: Home Condition: Stable Prescriptions: New tramadol 50 mg Tablet 50 mg PO Q6H PRN (Reason: Moderate Pain) Qty: 20 0RF sulfamethoxazole-trimethoprim [Bactrim DS] 800-160 mg tablet 1 tab PO BID Qty: 6 0RF Continued levocetirizine [Xyzal] 5 mg tablet 5 mg PO DAILY potassium chloride 20 mEq tablet extended release 20 meq PO DAILY furosemide 80 mg tablet 40 mg PO DAILY aspirin [Adult Aspirin Regimen] 81 mg tablet,delayed release (DR/EC) 81 mg PO DAILY@09 multivitamin Tablet 1 tab PO DAILY hydralazine 10 mg tablet 10 mg PO TID Qty: 270 3RF simvastatin 10 mg tablet 10 mg PO DAILY@18 Qty: 90 3RF temazepam [Restoril] 30 mg capsule 30 mg PO BEDTIME PRN (Reason: Insomnia) albuterol sulfate 90 mcg/actuation HFA aerosol inhaler 2 puff INHALATION Q4H PRN (Reason: Shortness Of Breath) bisacodyl 5 mg Tablet 5 mg PO DAILY PRN (Reason: Constipation) amiodarone 200 mg tablet 200 mg PO DAILY Rx Instructions: TAKE ONE TABLET BY MOUTH DAILY metoprolol succinate [Toprol XL] 100 mg tablet extended release 24 hr 150 mg PO DAILY Rx Instructions: TAKE ONE TABLET in the morning and half a tablet at night. spironolactone [Aldactone] 25 mg tablet 12.5 mg PO DAILY pantoprazole [Protonix] 40 mg tablet,delayed release (DR/EC) 40 mg PO BID@799,1999 Eliquis 5 mg tablet 5 mg PO BID@799,1999 Discharge Orders: Discharge Order (Routine); Ordered 12/29/21 Ordered By: Cameron Serrano Referrals: Cameron Serrano MD [Physician] - 1 week Discharge Diet: Usual diet Discharge Activity: Limit activity as instructed Patient Instructions: Opioid Safety Activity Restrictions/Additional Instructions: Do not raise left hand above eye level for 1 week No heavy lifting with left arm for 2 weeks May begin daily showers without bandage on Monday. Dry incision completely afterwards. Cover incision if there is irritation from clothing. Report any redness, swelling, increasing pain, or drainage from wound. Take antibiotics as prescribed until completed May resume all home medications and may resume Eliquis tomorrow. Discharge Attestations Time Spent in Discharge Care*: less than 30 min Specific Discharge Activities: educating patient, discussing with manager case management/social workers/dc planners, documenting/other paperwork and evaluating patient/reviewing data Status at Discharge: Cognitive status at discharge: cognitively intact , Behavioral status at discharge: cooperative , Functional status at discharge: independent ambulation , Overall status at discharge: patient is back to baseline Quality Metrics Clinical Quality Measures [ No reported AMI, CVA or VTE this stay] Coding Level of Care Code Acute Chg FW DC note
[2021-12-29 07:23] VITALS: BP 121/65; PULSE 69; RESP 18; TEMP 36.5; O2SAT 94
[2021-12-29] MEDS: metoprolol succinate ER (24 HR) 50 mg Tablet 150 MG PO (09:26)
[2021-12-29] MEDS: hyDRALAzine 10 mg Tablet PO (09:26)
[2021-12-29] MEDS: FUROsemide 40 mg Tablet PO (09:26)
[2021-12-29] MEDS: amiodarone 200 mg Tablet PO (09:26)
[2021-12-29] MEDS: spironolactone 25 mg Tablet 12.5 MG PO (09:27)
[2021-12-29] MEDS: potassium chloride ER 20 mEq Tablet PO (09:27)
[2021-12-29 09:34] VITALS: BP 121/65; PULSE 69; RESP 18; TEMP 36.5; O2SAT 94
== END 2021-12-29 09:40 | disposition home or self-care (01) ==
LOC: MEDSURG 09:25
PROVIDERS: Admitting Provider Thoracic Surgery (Cardiothoracic Vascular Surgery); PCP Family Medicine; Visit Provider Thoracic Surgery (Cardiothoracic Vascular Surgery)
PROC: 0JH608Z Insertion of Defibrillator Generator into Chest Subcutaneous Tissue and Fascia, Open Approach (ICD-10-PCS; CPT 33249; principal; 2021-12-28 09:40)
DX: I42.8 Other cardiomyopathies (principal); Z95.1 Presence of aortocoronary bypass graft; I25.10 Atherosclerotic heart disease of native coronary artery without angina pectoris; J43.9 Emphysema, unspecified; I13.0 Hypertensive heart and chronic kidney disease with heart failure and stage 1 through stage 4 chronic kidney disease, or unspecified chronic kidney disease; N18.9 Chronic kidney disease, unspecified; I50.22 Chronic systolic (congestive) heart failure; F17.210 Nicotine dependence, cigarettes, uncomplicated; I48.20 Chronic atrial fibrillation, unspecified; Z79.01 Long term (current) use of anticoagulants; K21.9 Gastro-esophageal reflux disease without esophagitis; E78.5 Hyperlipidemia, unspecified; E66.01 Morbid (severe) obesity due to excess calories; Z68.38 Body mass index [BMI] 38.0-38.9, adult; Z79.82 Long term (current) use of aspirin
CPT/HCPCS: 33249; 76000; 80048; 81003; 85025; 93005; C1722; C1777; G0378; J0690; J2405; J2704; J3010; J3490; J7030

== ENCOUNTER → 2022-01-05 13:25 | Outpatient (BNVA) | payer MEDICARE, MEDICAID, SELFPAY | PROVIDERS: PCP Family Medicine; Visit Provider Nurse Practitioner Family | DX: I42.9 Cardiomyopathy, unspecified (principal); F17.210 Nicotine dependence, cigarettes, uncomplicated | CPT/HCPCS: 99214 ==

== ENCOUNTER → 2022-02-04 10:09 | Outpatient (BNVA) | payer MEDICARE, MEDICAID, SELFPAY | PROVIDERS: PCP Family Medicine; Visit Provider Internal Medicine Cardiovascular Disease | DX: Z45.02 Encounter for adjustment and management of automatic implantable cardiac defibrillator (principal) | CPT/HCPCS: 93282 ==

== ENCOUNTER → 2022-02-10 11:00 | Outpatient (BNVA) | payer MEDICARE, MEDICAID, SELFPAY | PROVIDERS: PCP Family Medicine; Visit Provider Internal Medicine Pulmonary Disease | DX: R91.1 Solitary pulmonary nodule (principal); I42.9 Cardiomyopathy, unspecified; J43.9 Emphysema, unspecified; N18.9 Chronic kidney disease, unspecified; I48.91 Unspecified atrial fibrillation; Z95.1 Presence of aortocoronary bypass graft; I50.20 Unspecified systolic (congestive) heart failure; F17.210 Nicotine dependence, cigarettes, uncomplicated; Z95.2 Presence of prosthetic heart valve; Z79.01 Long term (current) use of anticoagulants | CPT/HCPCS: 99204; 99214 ==

== ENCOUNTER 2022-02-18 12:39 | Outpatient (CLI) | payer MEDICARE, MEDICAID, SELFPAY ==
--- NOTE | 2022-02-18 12:46 | CT_ITS ---
WS: [id number] LDCT LUNG CANCER SCREENING HISTORY: NICOTINE DEPENDENCE, CIGARETTES TECHNIQUE: Axial imaging performed from the apices to 1 cm below the costophrenic angles. Coronal and sagittal reformats are submitted with axial MIP series. All CT scans at [facility] use at least one of these dose optimization techniques: automated exposure control; mA and/or kV adjustment per patient size (includes targeted exams where dose is matched to clinical indication); or iterativ e reconstruction. DLP: 83.91 mGy.cm DIvol: Mean CTDIvol: 1.60 (mGy) COMPARISON: 06/09/2021, 09/27/2019 Diagnostic quality: Satisfactory Lung Nodules: Bilateral pulmonary nodules. Subpleural nodule RIGHT upper lobe measures 6 mm. This nod ule has been present since 09/27/2019. There is an additional 5 mm nodule LEFT upper lobe which is also stable. 4 mm nodule RIGHT upper lobe is stable. Lungs: Hyperinflated lungs with moderate changes of paraseptal emphysema. No endobronchial lesion. Heart: Enlarged heart. Status post CABG. Mild dehiscent of the sternotomy. Other findings: LEFT subclavian defibrillator. Atherosclerosis aorta. No adenopathy. Prior cholecyste ctomy. No adrenal mass. CT/CT lung screening [id number] IMPRESSION: LUNG-RADS: 2-Benign Appearance or Behavior FOLLOW UP: 12 Month: Continue annual screening with LDCT OTHER FINDINGS (S MODIFIER): None.
== END 2022-02-18 12:40 | disposition home or self-care (01) ==
LOC: RAD 12:40
PROVIDERS: PCP Family Medicine; Visit Provider Family Medicine
DX: Z12.2 Encounter for screening for malignant neoplasm of respiratory organs (principal); F17.210 Nicotine dependence, cigarettes, uncomplicated
CPT/HCPCS: 71271

== ENCOUNTER → 2022-03-28 11:30 | Outpatient (BNVA) | payer MEDICARE, MEDICAID, SELFPAY | PROVIDERS: PCP Family Medicine; Visit Provider Internal Medicine Pulmonary Disease | DX: J43.9 Emphysema, unspecified (principal); I42.9 Cardiomyopathy, unspecified; N18.9 Chronic kidney disease, unspecified; I48.91 Unspecified atrial fibrillation; Z95.1 Presence of aortocoronary bypass graft; I50.20 Unspecified systolic (congestive) heart failure; F17.210 Nicotine dependence, cigarettes, uncomplicated; Z79.01 Long term (current) use of anticoagulants | CPT/HCPCS: 99214 ==

== ENCOUNTER 2022-04-06 11:09 | Outpatient (CLI) | payer MEDICARE, MEDICAID, SELFPAY | END 2022-04-06 11:10 | disposition home or self-care (01) | LOC: RT 11:10 | PROVIDERS: PCP Family Medicine; Visit Provider Internal Medicine Pulmonary Disease | DX: J43.9 Emphysema, unspecified (principal) | CPT/HCPCS: 94060; 94726; 94729 ==

== ENCOUNTER → 2022-05-27 09:55 | Outpatient (BNVA) | payer MEDICARE, MEDICAID, SELFPAY | PROVIDERS: PCP Family Medicine; Visit Provider Internal Medicine Cardiovascular Disease | DX: Z45.02 Encounter for adjustment and management of automatic implantable cardiac defibrillator (principal) | CPT/HCPCS: 93282 ==

== ENCOUNTER → 2022-07-27 11:12 | Outpatient (BNVA) | payer MEDICARE, MEDICAID, SELFPAY | PROVIDERS: PCP Family Medicine; Visit Provider Internal Medicine Cardiovascular Disease | DX: J43.9 Emphysema, unspecified (principal); I42.9 Cardiomyopathy, unspecified; N18.9 Chronic kidney disease, unspecified; I48.91 Unspecified atrial fibrillation; I36.1 Nonrheumatic tricuspid (valve) insufficiency; I27.20 Pulmonary hypertension, unspecified; I34.0 Nonrheumatic mitral (valve) insufficiency; Z95.1 Presence of aortocoronary bypass graft; I50.20 Unspecified systolic (congestive) heart failure; I25.10 Atherosclerotic heart disease of native coronary artery without angina pectoris; F17.218 Nicotine dependence, cigarettes, with other nicotine-induced disorders; Z79.01 Long term (current) use of anticoagulants; Z79.82 Long term (current) use of aspirin | CPT/HCPCS: 99214 ==

== ENCOUNTER → 2022-11-07 11:55 | Outpatient (BNVA) | payer MEDICARE, MEDICAID, SELFPAY | PROVIDERS: PCP Family Medicine; Visit Provider Internal Medicine Pulmonary Disease | DX: J43.9 Emphysema, unspecified (principal); I42.9 Cardiomyopathy, unspecified; N18.9 Chronic kidney disease, unspecified; Z95.1 Presence of aortocoronary bypass graft; I50.20 Unspecified systolic (congestive) heart failure; I48.20 Chronic atrial fibrillation, unspecified; Z79.01 Long term (current) use of anticoagulants; Z95.2 Presence of prosthetic heart valve; F17.210 Nicotine dependence, cigarettes, uncomplicated; Z91.199 Patient's noncompliance with other medical treatment and regimen due to unspecified reason | CPT/HCPCS: 99214 ==

== ENCOUNTER → 2023-02-03 11:10 | Outpatient (BNVA) | payer MEDICARE, MEDICAID, SELFPAY | PROVIDERS: PCP Family Medicine; Visit Provider Internal Medicine Cardiovascular Disease | DX: I42.9 Cardiomyopathy, unspecified (principal); Z79.01 Long term (current) use of anticoagulants; J43.9 Emphysema, unspecified; N18.9 Chronic kidney disease, unspecified; I27.20 Pulmonary hypertension, unspecified; Z95.1 Presence of aortocoronary bypass graft; Z95.4 Presence of other heart-valve replacement; Z98.890 Other specified postprocedural states; Z95.810 Presence of automatic (implantable) cardiac defibrillator; I48.19 Other persistent atrial fibrillation; F17.210 Nicotine dependence, cigarettes, uncomplicated | CPT/HCPCS: 99215 ==

== ENCOUNTER → 2023-08-21 13:46 | Outpatient (BNVA) | payer MEDICARE, MEDICAID, SELFPAY | PROVIDERS: PCP Family Medicine; Visit Provider Internal Medicine Pulmonary Disease | DX: J43.9 Emphysema, unspecified (principal); I42.9 Cardiomyopathy, unspecified; N18.9 Chronic kidney disease, unspecified; I48.91 Unspecified atrial fibrillation; Z95.1 Presence of aortocoronary bypass graft; I50.20 Unspecified systolic (congestive) heart failure | CPT/HCPCS: 99214 ==

== ENCOUNTER 2023-10-17 11:43 | Outpatient (CLI) | payer MEDICARE, MEDICAID, SELFPAY ==
--- NOTE | 2023-10-17 12:00 | CT_ITS ---
WS: [id number] LDCT LUNG CANCER SCREENING TECHNIQUE: Noncontrast CT of the chest with coronal and sagittal reformatted images. CLINICAL INFORMATION: Cancer Screen COMPARISON: 2021 DLP: 150.11 mGy.cm DIvol: Mean CTDIvol: 3.70 (mGy) All CT scans at [facility] use at least one of these dose optimization techniques: automat ed exposure control; mA and/or kV adjustment per patient size (includes targeted exams where dose is matched to clinical indication); or iterative reconstruction. FINDINGS: Previously described subcentimeter nodules in the lung apices are unchanged measuring 5 to 6 mm. No n ew suspicious pulmonary parenchymal opacities. Paraseptal emphysema. Stable 5 mm subpleural nodule RIGHT upper lobe. Slight subsegmental atelectasis the lung bases. Stabl e 5 mm nodule in the LEFT upper lobe. Stable 4 mm nodule RIGHT upper lobe. Sternotomy with CABG. AICD. Hyperinflation. Moderate chronic emphysematous changes. Aortic calcification. Normal caliber thoracic aorta. No mediastinal or hilar lymphadenopathy. No axillary lymphadenopathy. Coronary calcification. Adrenal glands are normal. Partially visualized RIGHT renal cyst. CT/CT lung screening [id number] IMPRESSION: LUNG-RADS: 2-Benign Appearance or Behavior FOLLOW UP: 12 Month: Continue annual screening with LDCT
== END 2023-10-17 11:44 | disposition home or self-care (01) ==
LOC: RAD 11:43
PROVIDERS: PCP Family Medicine; Visit Provider Internal Medicine Pulmonary Disease
DX: Z12.2 Encounter for screening for malignant neoplasm of respiratory organs (principal); F17.210 Nicotine dependence, cigarettes, uncomplicated; R91.8 Other nonspecific abnormal finding of lung field; J43.8 Other emphysema; J98.11 Atelectasis; Z95.810 Presence of automatic (implantable) cardiac defibrillator; Z98.890 Other specified postprocedural states; N28.1 Cyst of kidney, acquired
CPT/HCPCS: 71271

== ENCOUNTER 2023-10-20 09:52 | Outpatient (CLI) | payer MEDICARE, MEDICAID, SELFPAY ==
--- NOTE | 2023-10-20 | ECG_ITS ---
[facility] Test Date: 2023-10-20 Pat Name: Rikki Barron Department: Room: Gender: Male Dining Room Coordinator: Ana Thomas : 1955 Requested By: Sade Wadsworth Order Number: [id number] Lety MD: Kartik Gardner M.D. Interpretive Statements NAME OF STUDY: LEXISCAN SESTAMIBI STRESS TEST INDICATION: [Shortness of Breath, ] Procedure: At the baseline, the blood pressure was 132/73 mmHg with a heart rate of 77 bpm. The electrocardiogram showed normal sinus rhythm, normal axis with borderline ST depressions seen in inferior and lateral leads. The Lexiscan was infused over a period of 20 seconds. A total of 0.4 mg of Lexiscan was infused. The stress phase was continued for a total of 5 minutes. Heart rate was at the end of stress phase was 88 bpm and a blood pressure of 127/63 mmHg. The EKG at the peak infusion revealed normal sinus rhythm with ST depressions inferiorly and laterally. Sestamibi was injected 20 seconds after the Lexiscan infusion. Blood pressure at the end of recovery phase was 119/60 mmHg with a heart rate of 87 bpm. Conclusion: 1. Baseline ST depressions in inferior and lateral leads worsened slightly after lexiscan injection. 2. No Lexiscan induced chest pain or cardiac arrhythmia. 3. Normal blood pressure and heart rate response. 4. Sestamibi/sestamibi perfusion scan pending; see separate report. Electronically Signed On 11-03-2023 14:40:09 CDT by Kartik Gardner M.D. [id number]
[2023-10-20 10:29] VITALS: BMI 40.0
--- NOTE | 2023-10-20 10:30 | NMCV_ITS ---
NM kari perf SPECT r/s* [id number] Rikki Barron Age: 67 Gender: M : 1955 Exam Date: 10/20/2023 10:50 Ordering Phys: Sade Wadsworth Technologist: BLAYNE Bray Exam Location: [facility] Indications: PERSISTANT AFIB STRESS TEST [facility] IMAGE PROTOCOL Rest/Stress 1 Lexiscan Day Radiopharmaceutical Dose (mCi) Administration Site Administered by Rest: Tc-99m 10.6 IV BLAYNE Razo Sestamibi Stress:Tc-99m 32.8 IV BLAYNE Razo Sestamibi Rest: 20-Oct-2023 60 Discovery 630 Stress: 20-Oct-2023 30 Discovery 630 0.4mg Lexiscan. Supine position only as patient was unable to lay prone. SPECT RESULTS Technical Quality: Excellent Raw Data Analysis: Normal Image Corrections: No attenuation or motion correction applied Summed Stress Score: 0 Summed Rest Score: 1 Summed Difference Score: 0 PERFUSION FINDINGS Slightly decreased tracer uptake was noted in the basal ,mid and apical inferior wall region. No significant reversibility was noted in this region FUNCTIONAL RESULTS (calculated via Gated SPECT) Stress Image LV EF (%): 51 Stress EDV (mL):156 TID: 0.96 Stress ESV (mL):77 FUNCTIONAL FINDINGS: Segmental wall motion analysis revealing no gross wall motion abnormalities. IMPRESSIONS 1. Myocardial perfusion imaging revealing small area of slightly decreased persistent tracer uptake involving the basal, mid and apical inferior wall regions suggesting myocardial scarring versus attenuation artifact 2. Normal LV ejection fraction of 51%. 3. LV wall motion analysis revealing no gross wall motion abnormalities. 4. Mildly dilated LV cavity with an end-systolic volume of 77 mil. Low probability for coronary ischemia, based on the above findings. Dr Mak Andersen MD [facility] (Electronically Signed) Final Date: 23 October 2023 08:16 S
[2023-10-20] MEDS: regadenoson 0.4 Mg/5 ml Syringe 0.400000000000000022 MG IVP (11:28)
[2023-10-20 11:33] VITALS: BP 119/60; PULSE 86
== END 2023-10-20 09:53 | disposition home or self-care (01) ==
LOC: CDL 09:55
PROVIDERS: PCP Family Medicine; Visit Provider Nurse Practitioner Family
DX: I48.19 Other persistent atrial fibrillation (principal); R06.02 Shortness of breath; R94.39 Abnormal result of other cardiovascular function study
CPT/HCPCS: 36415; 78452; 93017; 96374; A9500; J2785

== ENCOUNTER → 2023-11-21 12:14 | Outpatient (BNVA) | payer MEDICARE, MEDICAID, SELFPAY | PROVIDERS: PCP Family Medicine; Visit Provider Internal Medicine Cardiovascular Disease | DX: I25.10 Atherosclerotic heart disease of native coronary artery without angina pectoris (principal); Z95.1 Presence of aortocoronary bypass graft; I48.19 Other persistent atrial fibrillation; Z79.01 Long term (current) use of anticoagulants; F17.218 Nicotine dependence, cigarettes, with other nicotine-induced disorders; I50.20 Unspecified systolic (congestive) heart failure; I42.9 Cardiomyopathy, unspecified; Z95.4 Presence of other heart-valve replacement; Z98.890 Other specified postprocedural states; Z95.810 Presence of automatic (implantable) cardiac defibrillator; I27.20 Pulmonary hypertension, unspecified; N18.9 Chronic kidney disease, unspecified | CPT/HCPCS: 99215 ==

== ENCOUNTER → 2024-10-03 08:34 | Outpatient (BNVA) | payer MEDICARE, MEDICAID, SELFPAY | PROVIDERS: PCP Family Medicine; Visit Provider Nurse Practitioner Family | DX: I25.10 Atherosclerotic heart disease of native coronary artery without angina pectoris (principal); I42.9 Cardiomyopathy, unspecified; Z95.1 Presence of aortocoronary bypass graft; I48.19 Other persistent atrial fibrillation; F17.218 Nicotine dependence, cigarettes, with other nicotine-induced disorders; I50.20 Unspecified systolic (congestive) heart failure; I25.5 Ischemic cardiomyopathy; Z79.01 Long term (current) use of anticoagulants; Z95.4 Presence of other heart-valve replacement; Z98.890 Other specified postprocedural states; Z95.810 Presence of automatic (implantable) cardiac defibrillator; N18.9 Chronic kidney disease, unspecified; I27.20 Pulmonary hypertension, unspecified; I08.1 Rheumatic disorders of both mitral and tricuspid valves | CPT/HCPCS: 99214 ==

== ENCOUNTER → 2024-12-25 09:28 | Outpatient (BNVA) | payer MEDICARE, MEDICAID, SELFPAY | PROVIDERS: PCP Family Medicine; Visit Provider Internal Medicine Cardiovascular Disease | DX: Z45.02 Encounter for adjustment and management of automatic implantable cardiac defibrillator (principal) | CPT/HCPCS: 93296 ==

== ENCOUNTER → 2025-03-26 15:24 | Outpatient (BNVA) | payer MEDICARE, MEDICAID, SELFPAY | PROVIDERS: PCP Family Medicine; Visit Provider Internal Medicine Cardiovascular Disease | DX: I25.10 Atherosclerotic heart disease of native coronary artery without angina pectoris (principal); J44.9 Chronic obstructive pulmonary disease, unspecified; I48.19 Other persistent atrial fibrillation; F17.210 Nicotine dependence, cigarettes, uncomplicated | CPT/HCPCS: 99213 ==

== ENCOUNTER → 2025-04-29 12:52 | Outpatient (BNVA) | payer MEDICARE, MEDICAID, SELFPAY | PROVIDERS: PCP Family Medicine; Referring Provider Internal Medicine Cardiovascular Disease; Visit Provider Internal Medicine | DX: J43.9 Emphysema, unspecified (principal); R91.1 Solitary pulmonary nodule; Z99.81 Dependence on supplemental oxygen; Z71.6 Tobacco abuse counseling; F17.210 Nicotine dependence, cigarettes, uncomplicated; J44.9 Chronic obstructive pulmonary disease, unspecified | CPT/HCPCS: 99214; 99406; Q3014 ==